=== PATIENT | male | born 1985 | race American Indian/Alaskan Native ===

== ENCOUNTER 2019-02-17 12:02 | Inpatient (IN) | payer MEDICARE ==
--- NOTE | 2019-02-17 12:13 | Event Note ---
ED Screening Note Date of service: 02/17/19 Time: 12:08 ED Screening Note: 33 y o male left [place] 2 days ago and has not taken insulin 2 days presents with weakness lethargic FBS: > 500 This initial assessment/diagnostic orders/clinical plan/treatment(s) is/are subject to change based on patients health status, clinical progression and re- assessment by fellow clinical providers in the ED. Further treatment and workup at subsequent clinical providers discretion. Patient/guardian urged not to elope from the ED as their condition may be serious if not clinically assessed and managed. Initial orders include: BG, cbc,cmp,uds,
[2019-02-17] MEDS ORDERED: NARCAN 2 MG/2 ML ONE (12:30)
[2019-02-17] MEDS ORDERED: NACL 0.9% 500 ML 500 ML IV ONE (12:32)
[2019-02-17] MEDS ORDERED: NACL 0.9% 1000 ML 1,000 ML ONE (12:33)
[2019-02-17] MEDS ORDERED: NARCAN 2 MG/2 ML IV ONE (12:36)
[2019-02-17] MEDS ORDERED: NACL 0.9% 1000 ML 1,000 ML IV ONE ×3 (12:36→14:42)
[2019-02-17] MEDS ORDERED: HumuLIN R IV ONE (12:43)
[2019-02-17] MEDS ORDERED: D50W (25GM) Syringe IV PRN ×2 (12:44→16:14)
[2019-02-17] MEDS ORDERED: CALCIUM CHLORIDE IVP ONE (12:44)
[2019-02-17] MEDS ORDERED: CALCIUM CHLORIDE IV ONE (12:46)
[2019-02-17] MEDS ORDERED: HumuLIN R ONE (12:47)
[2019-02-17] MEDS ORDERED: HumuLIN R 100 UNITS in NACL 0.9% 99 ML IV SCH ×2 (13:00→17:00)
--- NOTE | 2019-02-17 13:01 | Emergency Department Report ---
ED General Adult HPI - General Chief complaint: Nausea/Vomiting/Diarrhea Stated complaint: VOMIT/DEHYDRATED/DISORIENTED Time Seen by Provider: 02/17/19 12:08 Source: patient Mode of arrival: Wheelchair Limitations: No Limitations - History of Present Illness Initial comments: Since a 33 year old insulin-dependent diabetic man who was in residents in the [facility] treatment [facility]. He is brought to triage by [facility] staff. They told the triage nurse that he had been vomiting all night. He became confused and disoriented by this afternoon and he was brought to this emergency department for evaluation. The patient himself cannot give a history. He is quite lethargic but not obtunded. He will awaken with painful stimuli. She is found to have possible punctures on his forearms. When asked if he used drugs he stated he didn't think so. In any case he is not providing any useful historical information. - Related Data Home Medications Medication Instructions Recorded Confirmed Last Taken Insulin Aspart [NovoLOG Flexpen] 7 unit SQ TIDWM 03/29/14 09/20/14 Unknown Lisinopril 20 mg PO DAILY 04/01/14 09/20/14 08/30/14 Insulin Detemir [Levemir Flextouch] 30 units SQ QHS 09/20/14 09/20/14 Unknown Allergies Allergy/AdvReac Type Severity Reaction Status Date / Time No Known Allergies Allergy Unverified 03/29/14 14:49 ED Review of Systems ROS: Stated complaint: VOMIT/DEHYDRATED/DISORIENTED Other details as noted in HPI Comment: Unobtainable due to pts medical conditions ED Past Medical Hx - Past Medical History Hx Hypertension: Yes Hx Congestive Heart Failure: No Hx Diabetes: Yes Hx Psychiatric Treatment: Yes Hx Asthma: No Hx COPD: No Hx HIV: No - Surgical History Past Surgical History?: No - Social History Smoking Status: Never Smoker Substance Use Type: None - Medications Home Medications: Home Medications Medication Instructions Recorded Confirmed Last Taken Type Insulin Aspart [NovoLOG Flexpen] 7 unit SQ TIDWM 03/29/14 09/20/14 Unknown History Lisinopril 20 mg PO DAILY 04/01/14 09/20/14 08/30/14 History Insulin Detemir [Levemir Flextouch] 30 units SQ QHS 03/28/15 03/28/15 Unknown History ED Physical Exam - General Limitations: Altered Mental Status General appearance: lethargic - Head Head exam: Present: atraumatic - Eye Eye exam: Present: other (somewhat small but not frankly miotic, reactive and conjugate) - ENT ENT exam: Present: mucous membranes dry - Neck Neck exam: Present: normal inspection, full ROM. Absent: tenderness, men ingismus - Respiratory Respiratory exam: Present: normal lung sounds bilaterally. Absent: respiratory distress - Cardiovascular Cardiovascular Exam: Present: regular rate, tachycardia - GI/Abdominal GI/Abdominal exam: Present: soft, normal bowel sounds. Absent: distended, tenderness, guarding, rebound, rigid - Extremities Exam Extremities exam: Present: normal inspection. Absent: calf tenderness - Back Exam Back exam: Present: normal inspection - Neurological Exam Neurological exam: Present: altered, other (nonfocal neurological exam) - Psychiatric Psychiatric exam: Present: flat affect - Skin Skin exam: Present: warm, dry, intact, other (possible punctures forearms). Absent: rash ED Course Vital Signs 02/17/19 02/17/19 02/17/19 12:06 12:15 12:22 Temperature 98.0 F 97.6 F Pulse Rate 108 H 140 H 106 H Respiratory 18 22 15 Rate Blood Pressure 85/37 Blood Pressure 80/37 [Left] O2 Sat by Pulse 100 100 Oximetry 02/17/19 02/17/19 02/17/19 12:30 12:46 12:55 Temperature Pulse Rate 105 H 102 H 107 H Respiratory 16 18 16 Rate Blood Pressure 83/37 85/31 Blood Pressure 85/31 79/28 [Left] O2 Sat by Pulse 97 96 100 Oximetry 02/17/19 02/17/19 02/17/19 13:00 13:03 13:15 Temperature Pulse Rate 112 H 112 H 113 H Respiratory 13 16 15 Rate Blood Pressure 79/28 107/52 Blood Pressure 111/44 [Left] O2 Sat by Pulse 100 100 100 Oximetry 02/17/19 02/17/19 02/17/19 13:29 13:30 13:45 Temperature Pulse Rate 113 H 115 H 115 H Respiratory 18 12 15 Rate Blood Pressure 120/65 115/65 Blood Pressure 107/52 [Left] O2 Sat by Pulse 100 100 100 Oximetry 02/17/19 02/17/19 02/17/19 14:00 14:15 14:30 Temperature Pulse Rate 113 H 113 H 113 H Respiratory 12 13 10 L Rate Blood Pressure 114/62 113/70 122/69 Blood Pressure [Left] O2 Sat by Pulse 100 100 100 Oximetry 02/17/19 02/17/19 02/17/19 14:45 15:00 15:15 Temperature Pulse Rate 112 H 113 H 113 H Respiratory 11 L 12 11 L Rate Blood Pressure 124/76 123/72 110/68 Blood Pressure [Left] O2 Sat by Pulse 100 100 100 Oximetry 02/17/19 02/17/19 02/17/19 15:30 15:45 16:00 Temperature Pulse Rate 113 H 112 H 112 H Respiratory 11 L 11 L 11 L Rate Blood Pressure 115/72 112/77 122/73 Blood Pressure [Left] O2 Sat by Pulse 100 100 100 Oximetry - Reevaluation(s) Reevaluation #1: An arterial blood gas demonstrated severe metabolic acidosis with a pH of 7.07 and a PCO2 of approximately 26. There was good oxygenation. 02/17/19 13:06 Reevaluation #2: Discussed with renal (Dr. Moeller) and consulted. Discussed with Dr. Simpson and consulted. EKG is reviewed. Discussed with Dr. Parker and admit ICU. 02/17/19 14:22 ED Medical Decision Making - Lab Data Result diagrams: 02/17/19 12:37 02/17/19 14:28 Laboratory Results - last 24 hr 02/17/19 02/17/19 02/17/19 12:17 12:37 12:37 WBC 21.5 H RBC 3.99 Hgb 12.3 Hct 48.7 H MCV 122 H MCH 31 MCHC 25 L RDW 17.4 H Plt Count 323 Cook % (Auto) 7.0 Eos % (Auto) 0.1 Cook # 1.5 H Eos # 0.0 Baso # 0.2 H Seg Neutrophils % 84.8 H Seg Neutrophils # 18.8 H PT 14.6 INR 1.17 H APTT 29.5 VBG pH Chloride BUN Creatinine Estimated GFR BUN/Creatinine Ratio POC Glucose > 500 H Calcium Phosphorus Magnesium Total Bilirubin AST ALT Alkaline Phosphatase Lactate Dehydrogenase Total Creatine Kinase CK-MB (CK-2) CK-MB (CK-2) Rel Index Troponin T NT-Pro-B Natriuret Pep Total Protein Albumin Albumin/Globulin Ratio Lipase Urine Bilirubin Urine RBC (Auto) U Epithel Cells (Auto) Urine Opiates Screen Urine Methadone Screen Ur Barbiturates Screen Ur Phencyclidine Scrn Ur Amphetamines Screen U Benzodiazepines Scrn Urine Cocaine Screen U Marijuana (THC) Screen 02/17/19 02/17/19 02/17/19 12:37 12:37 12:37 WBC RBC Hgb Hct MCV MCH MCHC RDW Plt Count Cook % (Auto) Eos % (Auto) Cook # Eos # Baso # Seg Neutrophils % Seg Neutrophils # PT INR APTT VBG pH 7.137 L* Chloride BUN Creatinine Estimated GFR BUN/Creatinine Ratio POC Glucose Calcium Phosphorus Magnesium Total Bilirubin AST ALT Alkaline Phosphatase Lactate Dehydrogenase 236 H Total Creatine Kinase 118 CK-MB (CK-2) 3.9 CK-MB (CK-2) Rel Index 3.3 Troponin T < 0.010 NT-Pro-B Natriuret Pep 597.9 H Total Protein Albumin Albumin/Globulin Ratio Lipase Urine Bilirubin Urine RBC (Auto) U Epithel Cells (Auto) Urine Opiates Screen Urine Methadone Screen Ur Barbiturates Screen Ur Phencyclidine Scrn Ur Amphetamines Screen U Benzodiazepines Scrn Urine Cocaine Screen U Marijuana (THC) Screen 02/17/19 02/17/19 02/17/19 12:53 13:13 13:13 WBC RBC Hgb Hct MCV MCH MCHC RDW Plt Count Cook % (Auto) Eos % (Auto) Cook # Eos # Baso # Seg Neutrophils % Seg Neutrophils # PT INR APTT VBG pH Chloride 71.4 L BUN 84 H Creatinine 3.4 H Estimated GFR 25 BUN/Creatinine Ratio 25 POC Glucose Calcium 8.1 L Phosphorus 12.10 H Magnesium 3.70 H Total Bilirubin 0.50 AST 20 ALT 21 Alkaline Phosphatase 158 H Lactate Dehydrogenase Total Creatine Kinase CK-MB (CK-2) CK-MB (CK-2) Rel Index Troponin T NT-Pro-B Natriuret Pep Total Protein 6.2 L Albumin 3.8 L Albumin/Globulin Ratio 1.6 Lipase 16 Urine Bilirubin Neg Urine RBC (Auto) 2.0 U Epithel Cells (Auto) < 1.0 Urine Opiates Screen Presumptive negative Urine Methadone Screen Presumptive negative Ur Barbiturates Screen Presumptive negative Ur Phencyclidine Scrn Presumptive negative Ur Amphetamines Screen Presumptive negative U Benzodiazepines Scrn Presumptive negative Urine Cocaine Screen Presumptive negative U Marijuana (THC) Screen Presumptive negative Laboratory Results - last 24 hr 08/02/17/19 02/17/19 12:17 12:37 12:37 WBC 21.5 H RBC 3.99 Hgb 12.3 Hct 48.7 H MCV 122 H MCH 31 MCHC 25 L RDW 17.4 H Plt Count 323 Cook % (Auto) 7.0 Eos % (Auto) 0.1 Cook # 1.5 H Eos # 0.0 Baso # 0.2 H Seg Neutrophils % 84.8 H Seg Neutrophils # 18.8 H PT 14.6 INR 1.17 H APTT 29.5 VBG pH Chloride BUN Creatinine Estimated GFR BUN/Creatinine Ratio POC Glucose > 500 H Calcium Phosphorus Magnesium Total Bilirubin AST ALT Alkaline Phosphatase Lactate Dehydrogenase Total Creatine Kinase CK-MB (CK-2) CK-MB (CK-2) Rel Index Troponin T NT-Pro-B Natriuret Pep Total Protein Albumin Albumin/Globulin Ratio Lipase Urine Color Urine Turbidity Urine pH Ur Specific [place] Urine Protein Urine Glucose (UA) Urine Ketones Urine Blood Urine Nitrite Urine Bilirubin Urine Urobilinogen Ur Leukocyte Esterase Urine WBC (Auto) Urine RBC (Auto) U Epithel Cells (Auto) Urine Mucus Urine Opiates Screen Urine Methadone Screen Ur Barbiturates Screen Ur Phencyclidine Scrn Ur Amphetamines Screen U Benzodiazepines Scrn Urine Cocaine Screen U Marijuana (THC) Screen 02/17/19 02/17/19 02/17/19 12:37 12:37 12:37 WBC RBC Hgb Hct MCV MCH MCHC RDW Plt Count Cook % (Auto) Eos % (Auto) Cook # Eos # Baso # Seg Neutrophils % Seg Neutrophils # PT INR APTT VBG pH 7.137 L* Chloride BUN Creatinine Estimated GFR BUN/Creatinine Ratio POC Glucose Calcium Phosphorus Magnesium Total Bilirubin AST ALT Alkaline Phosphatase Lactate Dehydrogenase 236 H Total Creatine Kinase 118 CK-MB (CK-2) 3.9 CK-MB (CK-2) Rel Index 3.3 Troponin T < 0.010 NT-Pro-B Natriuret Pep 597.9 H Total Protein Albumin Albumin/Globulin Ratio Lipase Urine Color Urine Turbidity Urine pH Ur Specific [place] Urine Protein Urine Glucose (UA) Urine Ketones Urine Blood Urine Nitrite Urine Bilirubin Urine Urobilinogen Ur Leukocyte Esterase Urine WBC (Auto) Urine RBC (Auto) U Epithel Cells (Auto) Urine Mucus Urine Opiates Screen Urine Methadone Screen Ur Barbiturates Screen Ur Phencyclidine Scrn Ur Amphetamines Screen U Benzodiazepines Scrn Urine Cocaine Screen U Marijuana (THC) Screen 02/17/19 02/17/19 02/17/19 12:53 13:13 13:13 WBC RBC Hgb Hct MCV MCH MCHC RDW Plt Count Cook % (Auto) Eos % (Auto) Cook # Eos # Baso # Seg Neutrophils % Seg Neutrophils # PT INR APTT VBG pH Chloride 71.4 L BUN 84 H Creatinine 3.4 H Estimated GFR 25 BUN/Creatinine Ratio 25 POC Glucose Calcium 8.1 L Phosphorus 12.10 H Magnesium 3.70 H Total Bilirubin 0.50 AST 20 ALT 21 Alkaline Phosphatase 158 H Lactate Dehydrogenase Total Creatine Kinase CK-MB (CK-2) CK-MB (CK-2) Rel Index Troponin T NT-Pro-B Natriuret Pep Total Protein 6.2 L Albumin 3.8 L Albumin/Globulin Ratio 1.6 Lipase 16 Urine Color Yellow Urine Turbidity Slightly-cloudy Urine pH 5.0 Ur Specific [place] 1.021 Urine Protein <15 mg/dl Urine Glucose (UA) >=500 Urine Ketones Tr Urine Blood Sm Urine Nitrite Neg Urine Bilirubin Neg Urine Urobilinogen < 2.0 Ur Leukocyte Esterase Neg Urine WBC (Auto) 4.0 Urine RBC (Auto) 2.0 U Epithel Cells (Auto) < 1.0 Urine Mucus Few Urine Opiates Screen Presumptive negative Urine Methadone Screen Presumptive negative Ur Barbiturates Screen Presumptive negative Ur Phencyclidine Scrn Presumptive negative Ur Amphetamines Screen Presumptive negative U Benzodiazepines Scrn Presumptive negative Urine Cocaine Screen Presumptive negative U Marijuana (THC) Screen Presumptive negative Sodium 118, potassium 9.5, CO2 5, lactic acid 3.5 Laboratory Results - last 24 hr 02/17/19 02/17/19 02/17/19 12:17 12:37 12:37 WBC 21.5 H RBC 3.99 Hgb 12.3 Hct 48.7 H MCV 122 H MCH 31 MCHC 25 L RDW 17.4 H Plt Count 323 Cook % (Auto) 7.0 Eos % (Auto) 0.1 Cook # 1.5 H Eos # 0.0 Baso # 0.2 H Add Manual Diff Complete Total Counted 100 Seg Neutrophils % 84.8 H Seg Neuts % (Manual) 84.0 H Band Neutrophils % 0 Lymphocytes % (Manual) 7.0 L Reactive Lymphs % (Man) 0 Monocytes % (Manual) 5.0 Eosinophils % (Manual) 0 Basophils % (Manual) 1.0 Metamyelocytes % 3.0 Myelocytes % 0 Promyelocytes % 0 Blast Cells % 0 Nucleated RBC % Not Reportable Seg Neutrophils # 18.8 H Seg Neutrophils # Man 18.1 H Band Neutrophils # 0.0 Lymphocytes # (Manual) 1.5 Abs React Lymphs (Man) 0.0 Monocytes # (Manual) 1.1 H Eosinophils # (Manual) 0.0 Basophils # (Manual) 0.2 H Metamyelocytes # 0.6 Myelocytes # 0.0 Promyelocytes # 0.0 Blast Cells # 0.0 WBC Morphology Not Reportable Hypersegmented Neuts Not Reportable Hyposegmented Neuts Not Reportable Hypogranular Neuts Not Reportable Smudge Cells Not Reportable Toxic Granulation Not Reportable Toxic Vacuolation Not Reportable Dohle Bodies Not Reportable Pelger-Huet Anomaly Not Reportable Kendall Rods Not Reportable Platelet Estimate Consistent w auto Clumped Platelets Not Reportable Plt Clumps, EDTA Not Reportable Large Platelets Not Reportable Giant Platelets Not Reportable Platelet Satelliting Not Reportable Plt Morphology Comment Not Reportable RBC Morphology Normal Dimorphic RBCs Not Reportable Polychromasia Few Hypochromasia Not Reportable Poikilocytosis Not Reportable Anisocytosis Not Reportable Microcytosis Not Reportable Macrocytosis Not Reportable Spherocytes Not Reportable Pappenheimer Bodies Not Reportable Sickle Cells Not Reportable Target Cells Not Reportable Tear Drop Cells Not Reportable Ovalocytes Not Reportable Helmet Cells Not Reportable [place] Bodies Not Reportable Achille Rings Not Reportable Elbert Cells Not Reportable Bite Cells Not Reportable Crenated Cell Not Reportable Elliptocytes Not Reportable Acanthocytes (Spur) Not Reportable Rouleaux Not Reportable Hemoglobin C Crystals Not Reportable Schistocytes Not Reportable Malaria parasites Not Reportable Gil Bodies Not Reportable Hem Pathologist Commnt No PT 14.6 INR 1.17 H APTT 29.5 VBG pH Sodium Potassium Chloride Carbon Dioxide Anion Gap BUN Creatinine Estimated GFR BUN/Creatinine Ratio Glucose POC Glucose > 500 H Lactic Acid Calcium Phosphorus Magnesium Total Bilirubin Direct Bilirubin Indirect Bilirubin AST ALT Alkaline Phosphatase Lactate Dehydrogenase Total Creatine Kinase CK-MB (CK-2) CK-MB (CK-2) Rel Index Troponin T NT-Pro-B Natriuret Pep Total Protein Albumin Albumin/Globulin Ratio Lipase Urine Color Urine Turbidity Urine pH Ur Specific [place] Urine Protein Urine Glucose (UA) Urine Ketones Urine Blood Urine Nitrite Urine Bilirubin Urine Urobilinogen Ur Leukocyte Esterase Urine WBC (Auto) Urine RBC (Auto) U Epithel Cells (Auto) Urine Mucus Urine Opiates Screen Urine Methadone Screen Ur Barbiturates Screen Ur Phencyclidine Scrn Ur Amphetamines Screen U Benzodiazepines Scrn Urine Cocaine Screen U Marijuana (THC) Screen Drugs of Abuse Note 02/17/19 02/17/19 02/17/19 12:37 12:37 12:37 WBC RBC Hgb Hct MCV MCH MCHC RDW Plt Count Cook % (Auto) Eos % (Auto) Cook # Eos # Baso # Add Manual Diff Total Counted Seg Neutrophils % Seg Neuts % (Manual) Band Neutrophils % Lymphocytes % (Manual) Reactive Lymphs % (Man) Monocytes % (Manual) Eosinophils % (Manual) Basophils % (Manual) Metamyelocytes % Myelocytes % Promyelocytes % Blast Cells % Nucleated RBC % Seg Neutrophils # Seg Neutrophils # Man Band Neutrophils # Lymphocytes # (Manual) Abs React Lymphs (Man) Monocytes # (Manual) Eosinophils # (Manual) Basophils # (Manual) Metamyelocytes # Myelocytes # Promyelocytes # Blast Cells # WBC Morphology Hypersegmented Neuts Hyposegmented Neuts Hypogranular Neuts Smudge Cells Toxic Granulation Toxic Vacuolation Dohle Bodies Pelger-Huet Anomaly Kendall Rods Platelet Estimate Clumped Platelets Plt Clumps, EDTA Large Platelets Giant Platelets Platelet Satelliting Plt Morphology Comment RBC Morphology Dimorphic RBCs Polychromasia Hypochromasia Poikilocytosis Anisocytosis Microcytosis Macrocytosis Spherocytes Pappenheimer Bodies Sickle Cells Target Cells Tear Drop Cells Ovalocytes Helmet Cells [place] Bodies Achille Rings Elbert Cells Bite Cells Crenated Cell Elliptocytes Acanthocytes (Spur) Rouleaux Hemoglobin C Crystals Schistocytes Malaria parasites Gil Bodies Hem Pathologist Commnt PT INR APTT VBG pH 7.137 L* Sodium Potassium Chloride Carbon Dioxide Anion Gap BUN Creatinine Estimated GFR BUN/Creatinine Ratio Glucose POC Glucose Lactic Acid 3.50 H* Calcium Phosphorus Magnesium Total Bilirubin Direct Bilirubin Indirect Bilirubin AST ALT Alkaline Phosphatase Lactate Dehydrogenase 236 H Total Creatine Kinase CK-MB (CK-2) CK-MB (CK-2) Rel Index Troponin T NT-Pro-B Natriuret Pep Total Protein Albumin Albumin/Globulin Ratio Lipase Urine Color Urine Turbidity Urine pH Ur Specific [place] Urine Protein Urine Glucose (UA) Urine Ketones Urine Blood Urine Nitrite Urine Bilirubin Urine Urobilinogen Ur Leukocyte Esterase Urine WBC (Auto) Urine RBC (Auto) U Epithel Cells (Auto) Urine Mucus Urine Opiates Screen Urine Methadone Screen Ur Barbiturates Screen Ur Phencyclidine Scrn Ur Amphetamines Screen U Benzodiazepines Scrn Urine Cocaine Screen U Marijuana (THC) Screen Drugs of Abuse Note 02/17/19 02/17/19 02/17/19 12:37 12:53 13:13 WBC RBC Hgb Hct MCV MCH MCHC RDW Plt Count Cook % (Auto) Eos % (Auto) Cook # Eos # Baso # Add Manual Diff Total Counted Seg Neutrophils % Seg Neuts % (Manual) Band Neutrophils % Lymphocytes % (Manual) Reactive Lymphs % (Man) Monocytes % (Manual) Eosinophils % (Manual) Basophils % (Manual) Metamyelocytes % Myelocytes % Promyelocytes % Blast Cells % Nucleated RBC % Seg Neutrophils # Seg Neutrophils # Man Band Neutrophils # Lymphocytes # (Manual) Abs React Lymphs (Man) Monocytes # (Manual) Eosinophils # (Manual) Basophils # (Manual) Metamyelocytes # Myelocytes # Promyelocytes # Blast Cells # WBC Morphology Hypersegmented Neuts Hyposegmented Neuts Hypogranular Neuts Smudge Cells Toxic Granulation Toxic Vacuolation Dohle Bodies Pelger-Huet Anomaly Kendall Rods Platelet Estimate Clumped Platelets Plt Clumps, EDTA Large Platelets Giant Platelets Platelet Satelliting Plt Morphology Comment RBC Morphology Dimorphic RBCs Polychromasia Hypochromasia Poikilocytosis Anisocytosis Microcytosis Macrocytosis Spherocytes Pappenheimer Bodies Sickle Cells Target Cells Tear Drop Cells Ovalocytes Helmet Cells [place] Bodies Achille Rings Elbert Cells Bite Cells Crenated Cell Elliptocytes Acanthocytes (Spur) Rouleaux Hemoglobin C Crystals Schistocytes Malaria parasites Gil Bodies Hem Pathologist Commnt PT INR APTT VBG pH Sodium 118 L* Potassium 9.5 H* Chloride 71.4 L Carbon Dioxide 5 L* Anion Gap 51 BUN 84 H Creatinine 3.4 H Estimated GFR 25 BUN/Creatinine Ratio 25 Glucose 2068 H* POC Glucose Lactic Acid Calcium 8.1 L Phosphorus 12.10 H Magnesium 3.70 H Total Bilirubin 0.50 Direct Bilirubin < 0.2 Indirect Bilirubin 0.3 AST 20 ALT 21 Alkaline Phosphatase 158 H Lactate Dehydrogenase Total Creatine Kinase 118 CK-MB (CK-2) 3.9 CK-MB (CK-2) Rel Index 3.3 Troponin T < 0.010 NT-Pro-B Natriuret Pep 597.9 H Total Protein 6.2 L Albumin 3.8 L Albumin/Globulin Ratio 1.6 Lipase 16 Urine Color Yellow Urine Turbidity Slightly-cloudy Urine pH 5.0 Ur Specific [place] 1.021 Urine Protein <15 mg/dl Urine Glucose (UA) >=500 Urine Ketones Tr Urine Blood Sm Urine Nitrite Neg Urine Bilirubin Neg Urine Urobilinogen < 2.0 Ur Leukocyte Esterase Neg Urine WBC (Auto) 4.0 Urine RBC (Auto) 2.0 U Epithel Cells (Auto) < 1.0 Urine Mucus Few Urine Opiates Screen Urine Methadone Screen Ur Barbiturates Screen Ur Phencyclidine Scrn Ur Amphetamines Screen U Benzodiazepines Scrn Urine Cocaine Screen U Marijuana (THC) Screen Drugs of Abuse Note 02/17/19 13:13 WBC RBC Hgb Hct MCV MCH MCHC RDW Plt Count Cook % (Auto) Eos % (Auto) Cook # Eos # Baso # Add Manual Diff Total Counted Seg Neutrophils % Seg Neuts % (Manual) Band Neutrophils % Lymphocytes % (Manual) Reactive Lymphs % (Man) Monocytes % (Manual) Eosinophils % (Manual) Basophils % (Manual) Metamyelocytes % Myelocytes % Promyelocytes % Blast Cells % Nucleated RBC % Seg Neutrophils # Seg Neutrophils # Man Band Neutrophils # Lymphocytes # (Manual) Abs React Lymphs (Man) Monocytes # (Manual) Eosinophils # (Manual) Basophils # (Manual) Metamyelocytes # Myelocytes # Promyelocytes # Blast Cells # WBC Morphology Hypersegmented Neuts Hyposegmented Neuts Hypogranular Neuts Smudge Cells Toxic Granulation Toxic Vacuolation Dohle Bodies Pelger-Huet Anomaly Kendall Rods Platelet Estimate Clumped Platelets Plt Clumps, EDTA Large Platelets Giant Platelets Platelet Satelliting Plt Morphology Comment RBC Morphology Dimorphic RBCs Polychromasia Hypochromasia Poikilocytosis Anisocytosis Microcytosis Macrocytosis Spherocytes Pappenheimer Bodies Sickle Cells Target Cells Tear Drop Cells Ovalocytes Helmet Cells [place] Bodies Achille Rings Anatoliy Cells Bite Cells Crenated Cell Elliptocytes Acanthocytes (Spur) Rouleaux Hemoglobin C Crystals Schistocytes Malaria parasites Gil Bodies Hem Pathologist Commnt PT INR APTT VBG pH Sodium Potassium Chloride Carbon Dioxide Anion Gap BUN Creatinine Estimated GFR BUN/Creatinine Ratio Glucose POC Glucose Lactic Acid Calcium Phosphorus Magnesium Total Bilirubin Direct Bilirubin Indirect Bilirubin AST ALT Alkaline Phosphatase Lactate Dehydrogenase Total Creatine Kinase CK-MB (CK-2) CK-MB (CK-2) Rel Index Troponin T NT-Pro-B Natriuret Pep Total Protein Albumin Albumin/Globulin Ratio Lipase Urine Color Urine Turbidity Urine pH Ur Specific [place] Urine Protein Urine Glucose (UA) Urine Ketones Urine Blood Urine Nitrite Urine Bilirubin Urine Urobilinogen Ur Leukocyte Esterase Urine WBC (Auto) Urine RBC (Auto) U Epithel Cells (Auto) Urine Mucus Urine Opiates Screen Presumptive negative Urine Methadone Screen Presumptive negative Ur Barbiturates Screen Presumptive negative Ur Phencyclidine Scrn Presumptive negative Ur Amphetamines Screen Presumptive negative U Benzodiazepines Scrn Presumptive negative Urine Cocaine Screen Presumptive negative U Marijuana (THC) Screen Presumptive negative Drugs of Abuse Note Disclamer Laboratory Results - last 24 hr 02/17/19 02/17/19 02/17/19 12:17 12:37 12:37 WBC 21.5 H RBC 3.99 Hgb 12.3 Hct 48.7 H MCV 122 H MCH 31 MCHC 25 L RDW 17.4 H Plt Count 323 Cook % (Auto) 7.0 Eos % (Auto) 0.1 Cook # 1.5 H Eos # 0.0 Baso # 0.2 H Add Manual Diff Complete Total Counted 100 Seg Neutrophils % 84.8 H Seg Neuts % (Manual) 84.0 H Band Neutrophils % 0 Lymphocytes % (Manual) 7.0 L Reactive Lymphs % (Man) 0 Monocytes % (Manual) 5.0 Eosinophils % (Manual) 0 Basophils % (Manual) 1.0 Metamyelocytes % 3.0 Myelocytes % 0 Promyelocytes % 0 Blast Cells % 0 Nucleated RBC % Not Reportable Seg Neutrophils # 18.8 H Seg Neutrophils # Man 18.1 H Band Neutrophils # 0.0 Lymphocytes # (Manual) 1.5 Abs React Lymphs (Man) 0.0 Monocytes # (Manual) 1.1 H Eosinophils # (Manual) 0.0 Basophils # (Manual) 0.2 H Metamyelocytes # 0.6 Myelocytes # 0.0 Promyelocytes # 0.0 Blast Cells # 0.0 WBC Morphology Not Reportable Hypersegmented Neuts Not Reportable Hyposegmented Neuts Not Reportable Hypogranular Neuts Not Reportable Smudge Cells Not Reportable Toxic Granulation Not Reportable Toxic Vacuolation Not Reportable Dohle Bodies Not Reportable Pelger-Huet Anomaly Not Reportable Kendall Rods Not Reportable Platelet Estimate Consistent w auto Clumped Platelets Not Reportable Plt Clumps, EDTA Not Reportable Large Platelets Not Reportable Giant Platelets Not Reportable Platelet Satelliting Not Reportable Plt Morphology Comment Not Reportable RBC Morphology Normal Dimorphic RBCs Not Reportable Polychromasia Few Hypochromasia Not Reportable Poikilocytosis Not Reportable Anisocytosis Not Reportable Microcytosis Not Reportable Macrocytosis Not Reportable Spherocytes Not Reportable Pappenheimer Bodies Not Reportable Sickle Cells Not Reportable Target Cells Not Reportable Tear Drop Cells Not Reportable Ovalocytes Not Reportable Helmet Cells Not Reportable [place] Bodies Not Reportable Achille Rings Not Reportable [place] Cells Not Reportable Bite Cells Not Reportable Crenated Cell Not Reportable Elliptocytes Not Reportable Acanthocytes (Spur) Not Reportable Rouleaux Not Reportable Hemoglobin C Crystals Not Reportable Schistocytes Not Reportable Malaria parasites Not Reportable Gil Bodies Not Reportable Hem Pathologist Commnt No PT 14.6 INR 1.17 H APTT 29.5 POC ABG pH POC ABG pO2 POC ABG HCO3 POC ABG Total CO2 POC ABG O2 Sat POC ABG Base Excess VBG pH FiO2 Sodium Potassium Chloride Carbon Dioxide Anion Gap BUN Creatinine Estimated GFR BUN/Creatinine Ratio Glucose POC Glucose > 500 H Lactic Acid Calcium Phosphorus Magnesium Total Bilirubin Direct Bilirubin Indirect Bilirubin AST ALT Alkaline Phosphatase Lactate Dehydrogenase Total Creatine Kinase CK-MB (CK-2) CK-MB (CK-2) Rel Index Troponin T NT-Pro-B Natriuret Pep Total Protein Albumin Albumin/Globulin Ratio Lipase Urine Color Urine Turbidity Urine pH Ur Specific [place] Urine Protein Urine Glucose (UA) Urine Ketones Urine Blood Urine Nitrite Urine Bilirubin Urine Urobilinogen Ur Leukocyte Esterase Urine WBC (Auto) Urine RBC (Auto) U Epithel Cells (Auto) Urine Mucus Urine Opiates Screen Urine Methadone Screen Ur Barbiturates Screen Ur Phencyclidine Scrn Ur Amphetamines Screen U Benzodiazepines Scrn Urine Cocaine Screen U Marijuana (THC) Screen Drugs of Abuse Note 02/17/19 02/17/19 02/17/19 12:37 12:37 12:37 WBC RBC Hgb Hct MCV MCH MCHC RDW Plt Count Cook % (Auto) Eos % (Auto) Cook # Eos # Baso # Add Manual Diff Total Counted Seg Neutrophils % Seg Neuts % (Manual) Band Neutrophils % Lymphocytes % (Manual) Reactive Lymphs % (Man) Monocytes % (Manual) Eosinophils % (Manual) Basophils % (Manual) Metamyelocytes % Myelocytes % Promyelocytes % Blast Cells % Nucleated RBC % Seg Neutrophils # Seg Neutrophils # Man Band Neutrophils # Lymphocytes # (Manual) Abs React Lymphs (Man) Monocytes # (Manual) Eosinophils # (Manual) Basophils # (Manual) Metamyelocytes # Myelocytes # Promyelocytes # Blast Cells # WBC Morphology Hypersegmented Neuts Hyposegmented Neuts Hypogranular Neuts Smudge Cells Toxic Granulation Toxic Vacuolation Dohle Bodies Pelger-Huet Anomaly [place] Rods Platelet Estimate Clumped Platelets Plt Clumps, EDTA Large Platelets Giant Platelets Platelet Satelliting Plt Morphology Comment RBC Morphology Dimorphic RBCs Polychromasia Hypochromasia Poikilocytosis Anisocytosis Microcytosis Macrocytosis Spherocytes Pappenheimer Bodies Sickle Cells Target Cells Tear Drop Cells Ovalocytes Helmet Cells [place] Bodies Achille Rings Anatoliy Cells Bite Cells Crenated Cell Elliptocytes Acanthocytes (Spur) Rouleaux Hemoglobin C Crystals Schistocytes Malaria parasites Gil Bodies Hem Pathologist Commnt PT INR APTT POC ABG pH POC ABG pO2 POC ABG HCO3 POC ABG Total CO2 POC ABG O2 Sat POC ABG Base Excess VBG pH 7.137 L* FiO2 Sodium Potassium Chloride Carbon Dioxide Anion Gap BUN Creatinine Estimated GFR BUN/Creatinine Ratio Glucose POC Glucose Lactic Acid 3.50 H* Calcium Phosphorus Magnesium Total Bilirubin Direct Bilirubin Indirect Bilirubin AST ALT Alkaline Phosphatase Lactate Dehydrogenase 236 H Total Creatine Kinase CK-MB (CK-2) CK-MB (CK-2) Rel Index Troponin T NT-Pro-B Natriuret Pep Total Protein Albumin Albumin/Globulin Ratio Lipase Urine Color Urine Turbidity Urine pH Ur Specific [place] Urine Protein Urine Glucose (UA) Urine Ketones Urine Blood Urine Nitrite Urine Bilirubin Urine Urobilinogen Ur Leukocyte Esterase Urine WBC (Auto) Urine RBC (Auto) U Epithel Cells (Auto) Urine Mucus Urine Opiates Screen Urine Methadone Screen Ur Barbiturates Screen Ur Phencyclidine Scrn Ur Amphetamines Screen U Benzodiazepines Scrn Urine Cocaine Screen U Marijuana (THC) Screen Drugs of Abuse Note 02/17/19 02/17/19 02/17/19 12:37 12:53 13:06 WBC RBC Hgb Hct MCV MCH MCHC RDW Plt Count Cook % (Auto) Eos % (Auto) Cook # Eos # Baso # Add Manual Diff Total Counted Seg Neutrophils % Seg Neuts % (Manual) Band Neutrophils % Lymphocytes % (Manual) Reactive Lymphs % (Man) Monocytes % (Manual) Eosinophils % (Manual) Basophils % (Manual) Metamyelocytes % Myelocytes % Promyelocytes % Blast Cells % Nucleated RBC % Seg Neutrophils # Seg Neutrophils # Man Band Neutrophils # Lymphocytes # (Manual) Abs React Lymphs (Man) Monocytes # (Manual) Eosinophils # (Manual) Basophils # (Manual) Metamyelocytes # Myelocytes # Promyelocytes # Blast Cells # WBC Morphology Hypersegmented Neuts Hyposegmented Neuts Hypogranular Neuts Smudge Cells Toxic Granulation Toxic Vacuolation Dohle Bodies Pelger-Huet Anomaly Kend[place] Rods Platelet Estimate Clumped Platelets Plt Clumps, EDTA Large Platelets Giant Platelets Platelet Satelliting Plt Morphology Comment RBC Morphology Dimorphic RBCs Polychromasia Hypochromasia Poikilocytosis Anisocytosis Microcytosis Macrocytosis Spherocytes Pappenheimer Bodies Sickle Cells Target Cells Tear Drop Cells Ovalocytes Helmet Cells [place] Bodies Achille Rings [place]bert Cells Bite Cells Crenated Cell Elliptocytes Acanthocytes (Spur) Rouleaux Hemoglobin C Crystals Schistocytes Malaria parasites Gil Bodies Hem Pathologist Commnt PT INR APTT POC ABG pH 7.073 L POC ABG pO2 123 H POC ABG HCO3 7.0 POC ABG Total CO2 8 POC ABG O2 Sat 97 POC ABG Base Excess -23 VBG pH FiO2 21 Sodium 118 L* Potassium 9.5 H* Chloride 71.4 L Carbon Dioxide 5 L* Anion Gap 51 BUN 84 H Creatinine 3.4 H Estimated GFR 25 BUN/Creatinine Ratio 25 Glucose 2068 H* POC Glucose Lactic Acid Calcium 8.1 L Phosphorus 12.10 H Magnesium 3.70 H Total Bilirubin 0.50 Direct Bilirubin < 0.2 Indirect Bilirubin 0.3 AST 20 ALT 21 Alkaline Phosphatase 158 H Lactate Dehydrogenase Total Creatine Kinase 118 CK-MB (CK-2) 3.9 CK-MB (CK-2) Rel Index 3.3 Troponin T < 0.010 NT-Pro-B Natriuret Pep 597.9 H Total Protein 6.2 L Albumin 3.8 L Albumin/Globulin Ratio 1.6 Lipase 16 Urine Color Urine Turbidity Urine pH Ur Specific [place] Urine Protein Urine Glucose (UA) Urine Ketones Urine Blood Urine Nitrite Urine Bilirubin Urine Urobilinogen Ur Leukocyte Esterase Urine WBC (Auto) Urine RBC (Auto) U Epithel Cells (Auto) Urine Mucus Urine Opiates Screen Urine Methadone Screen Ur Barbiturates Screen Ur Phencyclidine Scrn Ur Amphetamines Screen U Benzodiazepines Scrn Urine Cocaine Screen U Marijuana (THC) Screen Drugs of Abuse Note 02/17/19 02/17/19 02/17/19 13:13 13:13 13:59 WBC RBC Hgb Hct MCV MCH MCHC RDW Plt Count Cook % (Auto) Eos % (Auto) Cook # Eos # Baso # Add Manual Diff Total Counted Seg Neutrophils % Seg Neuts % (Manual) Band Neutrophils % Lymphocytes % (Manual) Reactive Lymphs % (Man) Monocytes % (Manual) Eosinophils % (Manual) Basophils % (Manual) Metamyelocytes % Myelocytes % Promyelocytes % Blast Cells % Nucleated RBC % Seg Neutrophils # Seg Neutrophils # Man Band Neutrophils # Lymphocytes # (Manual) Abs React Lymphs (Man) Monocytes # (Manual) Eosinophils # (Manual) Basophils # (Manual) Metamyelocytes # Myelocytes # Promyelocytes # Blast Cells # WBC Morphology Hypersegmented Neuts Hyposegmented Neuts Hypogranular Neuts Smudge Cells Toxic Granulation Toxic Vacuolation Dohle Bodies Pelger-Huet Anomaly Kend[place] Rods Platelet Estimate Clumped Platelets Plt Clumps, EDTA Large Platelets Giant Platelets Platelet Satelliting Plt Morphology Comment RBC Morphology Dimorphic RBCs Polychromasia Hypochromasia Poikilocytosis Anisocytosis Microcytosis Macrocytosis Spherocytes Pappenheimer Bodies Sickle Cells Target Cells Tear Drop Cells Ovalocytes Helmet Cells [place] Bodies Achille Rings Anatoliy Cells Bite Cells Crenated Cell Elliptocytes Acanthocytes (Spur) Rouleaux Hemoglobin C Crystals Schistocytes Malaria parasites Gil Bodies Hem Pathologist Commnt PT INR APTT POC ABG pH POC ABG pO2 POC ABG HCO3 POC ABG Total CO2 POC ABG O2 Sat POC ABG Base Excess VBG pH FiO2 Sodium Potassium Chloride Carbon Dioxide Anion Gap BUN Creatinine Estimated GFR BUN/Creatinine Ratio Glucose POC Glucose Lactic Acid 2.60 H* Calcium Phosphorus Magnesium Total Bilirubin Direct Bilirubin Indirect Bilirubin AST ALT Alkaline Phosphatase Lactate Dehydrogenase Total Creatine Kinase CK-MB (CK-2) CK-MB (CK-2) Rel Index Troponin T NT-Pro-B Natriuret Pep Total Protein Albumin Albumin/Globulin Ratio Lipase Urine Color Yellow Urine Turbidity Slightly-cloudy Urine pH 5.0 Ur Specific [place] 1.021 Urine Protein <15 mg/dl Urine Glucose (UA) >=500 Urine Ketones Tr Urine Blood Sm Urine Nitrite Neg Urine Bilirubin Neg Urine Urobilinogen < 2.0 Ur Leukocyte Esterase Neg Urine WBC (Auto) 4.0 Urine RBC (Auto) 2.0 U Epithel Cells (Auto) < 1.0 Urine Mucus Few Urine Opiates Screen Presumptive negative Urine Methadone Screen Presumptive negative Ur Barbiturates Screen Presumptive negative Ur Phencyclidine Scrn Presumptive negative Ur Amphetamines Screen Presumptive negative U Benzodiazepines Scrn Presumptive negative Urine Cocaine Screen Presumptive negative U Marijuana (THC) Screen Presumptive negative Drugs of Abuse Note Disclamer 02/17/19 14:28 WBC RBC Hgb Hct MCV MCH MCHC RDW Plt Count Cook % (Auto) Eos % (Auto) Cook # Eos # Baso # Add Manual Diff Total Counted Seg Neutrophils % Seg Neuts % (Manual) Band Neutrophils % Lymphocytes % (Manual) Reactive Lymphs % (Man) Monocytes % (Manual) Eosinophils % (Manual) Basophils % (Manual) Metamyelocytes % Myelocytes % Promyelocytes % Blast Cells % Nucleated RBC % Seg Neutrophils # Seg Neutrophils # Man Band Neutrophils # Lymphocytes # (Manual) Abs React Lymphs (Man) Monocytes # (Manual) Eosinophils # (Manual) Basophils # (Manual) Metamyelocytes # Myelocytes # Promyelocytes # Blast Cells # WBC Morphology Hypersegmented Neuts Hyposegmented Neuts Hypogranular Neuts Smudge Cells Toxic Granulation Toxic Vacuolation Dohle Bodies Pelger-Huet Anomaly Kend[place] Rods Platelet Estimate Clumped Platelets Plt Clumps, EDTA Large Platelets Giant Platelets Platelet Satelliting Plt Morphology Comment RBC Morphology Dimorphic RBCs Polychromasia Hypochromasia Poikilocytosis Anisocytosis Microcytosis Macrocytosis Spherocytes Pappenheimer Bodies Sickle Cells Target Cells Tear Drop Cells Ovalocytes Helmet Cells [place] Bodies Achille Rings [place] Cells Bite Cells Crenated Cell Elliptocytes Acanthocytes (Spur) Rouleaux Hemoglobin C Crystals Schistocytes Malaria parasites Gil Bodies Hem Pathologist Commnt PT INR APTT POC ABG pH POC ABG pO2 POC ABG HCO3 POC ABG Total CO2 POC ABG O2 Sat POC ABG Base Excess VBG pH FiO2 Sodium 129 L D Potassium 6.7 H* D Chloride 83.1 L Carbon Dioxide 10 L Anion Gap 43 BUN 81 H Creatinine 3.1 H Estimated GFR 28 BUN/Creatinine Ratio 26 Glucose 1726 H* POC Glucose Lactic Acid Calcium 8.8 Phosphorus Magnesium Total Bilirubin Direct Bilirubin Indirect Bilirubin AST ALT Alkaline Phosphatase Lactate Dehydrogenase Total Creatine Kinase CK-MB (CK-2) CK-MB (CK-2) Rel Index Troponin T NT-Pro-B Natriuret Pep Total Protein Albumin Albumin/Globulin Ratio Lipase Urine Color Urine Turbidity Urine pH Ur Specific [place] Urine Protein Urine Glucose (UA) Urine Ketones Urine Blood Urine Nitrite Urine Bilirubin Urine Urobilinogen Ur Leukocyte Esterase Urine WBC (Auto) Urine RBC (Auto) U Epithel Cells (Auto) Urine Mucus Urine Opiates Screen Urine Methadone Screen Ur Barbiturates Screen Ur Phencyclidine Scrn Ur Amphetamines Screen U Benzodiazepines Scrn Urine Cocaine Screen U Marijuana (THC) Screen Drugs of Abuse Note - EKG Data -: EKG Interpreted by Me - EKG Data Interpretation: other (twelve-lead EKG did show ST elevation in lead V2 however it was highly consistent with hyperkalemia otherwise with a widened QRS and classic all peaked T waves. I do not think this is an acute STEMI. However, we will repeat it after empiric treatment for hyperkalemia.) - Radiology Data Radiology results: report reviewed (chest x-ray no acute process) Critical Care Time: Yes Critical care time in (mins) excluding proc time.: 120 Critical care attestation.: If time is entered above; I have spent that time in minutes in the direct care of this critically ill patient, excluding procedure time. ED Disposition Clinical Impression: Hyperkalemia DKA (diabetic ketoacidosis) Qualifiers: Diabetes mellitus type: type 1 Diabetes mellitus complication detail: with coma Qualified Code(s): E10.11 - Type 1 diabetes mellitus with ketoacidosis with coma Schizophrenia Qualifiers: Schizophrenia type: unspecified Qualified Code(s): F20.9 - Schizophrenia, unspecified Disposition: [id number] OP ADMIT IP TO THIS HOSP Is pt being admited?: Yes Does the pt Need Aspirin: Yes Condition: Stable Instructions: Diabetes Mellitus Type 2 in Adults (ED) Referrals: ALLISON ALFORD MD [Primary Care Provider] - 3-5 Days Time of Disposition: 16:29
[2019-02-17 13:04] LABS: Mean Corpuscular HGB Conc 25 % (32-34); Platelet Count 323 K/mm3 (140-440); Red Blood Count 3.99 M/mm3 (3.65-5.03); Red Cell Distribution Width 17.4 % (13.2-15.2)
[2019-02-17 13:06] LABS: Hematocrit 48.7 % (35.5-45.6); Hemoglobin 12.3 gm/dl (11.8-15.2); Mean Corpuscular Volume 122 fl (84-94)
[2019-02-17 13:10] LABS: Basophils # (Auto) 0.2 K/mm3 (0.0-0.1); Eosinophils % (Auto) 0.1 % (0.0-4.3); Monocytes # (Auto) 1.5 K/mm3 (0.0-0.8)
[2019-02-17 13:16] LABS: INR 1.17 (0.87-1.13); Partial Thromboplastin Time 29.5 Sec. (24.2-36.6)
[2019-02-17 13:26] LABS: Alanine Aminotransferase 21 units/L (7-56); Albumin 3.8 g/dL (3.9-5); BUN/Creatinine Ratio 25; Blood Urea Nitrogen 84 mg/dL (9-20); Calcium 8.1 mg/dL (8.4-10.2); Hemolysis Index 29
[2019-02-17 13:27] LABS: Creatine Kinase MB 3.9 ng/mL (0.0-4.0)
[2019-02-17 13:32] LABS: Bilirubin,Urine NEG (Negative); Blood,Urine SM (Negative); Color,Urine Yellow (Yellow); Mucus,Urine FEW /HPF; Protein,Urine <15 mg/dL mg/dL (Negative); Urobilinogen,Urine < 2.0 mg/dL (<2.0)
[2019-02-17 13:38] LABS: Amphetamine Screen,Urine PRESUMPTIVE NEGATIVE; Benzodiazepines Screen,Urine PRESUMPTIVE NEGATIVE; Cannabinoid Screen,Urine PRESUMPTIVE NEGATIVE; Cocaine Screen,Urine PRESUMPTIVE NEGATIVE; Methadone Screen,Urine PRESUMPTIVE NEGATIVE; Opiate Screen,Urine PRESUMPTIVE NEGATIVE
--- NOTE | 2019-02-17 13:47 | XRay Report ---
CHEST 1 VIEW 02/17/2019 1:17 PM INDICATION / CLINICAL INFORMATION: Chest pain for one month. Possible sepsis. COMPARISON: None available. FINDINGS: SUPPORT DEVICES: None. HEART / MEDIASTINUM: No significant abnormality. LUNGS / PLEURA: No significant pulmonary or pleural abnormality. No pneumothorax. ADDITIONAL FINDINGS: No significant additional findings. IMPRESSION: No acute abnormality of the chest. Signer Name: Darrick Huffman MD Signed: 02/17/2019 1:42 PM Workstation Name: [id number]
[2019-02-17 13:48] LABS: Bilirubin,Direct < 0.2 mg/dL (0-0.2)
[2019-02-17 13:53] LABS: Eosinophils % (Manual) 0 % (0.0-4.3); Total Cells Counted 100
[2019-02-17 13:54] LABS: RBC Morphology Normal
[2019-02-17 13:55] LABS: Platelet Estimate Consistent w Auto
[2019-02-17] MEDS ORDERED: MERREM 1,000 MG in NACL 0.9% 100 ML IV ONE (14:42)
[2019-02-17 14:59] LABS: Calcium 8.8 mg/dL (8.4-10.2)
[2019-02-17] MEDS ORDERED: NACL 0.45% 1000 ML 1,000 ML IV SCH (16:00)
--- NOTE | 2019-02-17 16:11 | History and Physical Report ---
History of Present Illness Date of examination: 02/17/19 Date of admission: 02/17/2019 Chief complaint: Vomiting all night Altered sensorium since last night History of present illness: 33 yearl old AAM with history of Type 1 Diabetes sent from [facility] for persistent vomiting since last night.He became severely confused and Lethargic since this afternoon.Patient has IDDM and HTN.Patient admitted to [facility] for partial treatment program.patient is lethargic and Obtunded.Unable to give history.No fever or chills.Noncompliant with Insulin.No recent travel.No IV drug use. Past Medical History Hypertension: Yes Diabetes: Yes Psychiatric Treatment: Yes Surgical History No Social History Smoking Status: Never Smoker Substance Use Type: None Family History Htn Medications Home Medications: Home Medications Medication Instructions Recorded Confirmed Last Taken Type Insulin Aspart [NovoLOG Flexpen] 7 unit SQ TIDWM 03/29/14 09/20/14 Unknown History Lisinopril 20 mg PO DAILY 04/01/14 09/20/14 08/30/14 History Insulin Detemir [Levemir Flextouch] 30 units SQ QHS 09/20/14 09/20/14 Unknown History Review of Systems ROS: Stated complaint: VOMIT/DEHYDRATED/DISORIENTED Other details as noted in HPI Comment: Unobtainable due to pts medical conditions Medications and Allergies Allergies Allergy/AdvReac Type Severity Reaction Status Date / Time No Known Allergies Allergy Unverified 03/29/14 14:49 Home Medications Medication Instructions Recorded Confirmed Last Taken Type Insulin Aspart [NovoLOG Flexpen] 7 unit SQ TIDWM 03/29/14 09/20/14 Unknown History Lisinopril 20 mg PO DAILY 04/01/14 09/20/14 08/30/14 History Insulin Detemir [Levemir Flextouch] 30 units SQ QHS 09/20/14 09/20/14 Unknown History Active Meds: Active Medications Dextrose (D50w (25gm) Syringe) 0 ml IV ONCE PRN PRN Reason: Hypoglycemia Insulin Human Regular 100 (units/ Sodium Chloride) 100 mls @ 1 mls/hr IV TITR EMILIANO; Protocol Last Titration: 02/17/19 15:49 Dose: 8 units/hr, 8 mls/hr Documented by: Sodium Chloride (Nacl 0.45% 1000 Ml) 1,000 mls @ 150 mls/hr IV DIRECT EMILIANO Exam - Physical Exam Narrative exam: Patient is lethargic and decreased responsiveness - Constitutional Vitals: Temp Pulse Resp BP Pulse Ox 97.6 F 112 H 11 L 122/73 100 02/17/19 12:15 02/17/19 16:00 02/17/19 16:00 02/17/19 16:00 02/17/19 16:00 General appearance: Present: mild distress, well-nourished - EENT Eyes: Present: PERRL ENT: hearing intact, clear oral mucosa, other (Tongue is dry) - Neck Neck: Present: supple, normal ROM - Respiratory Respiratory effort: normal Respiratory: bilateral: CTA - Cardiovascular Heart rate: 98 Rhythm: regular Heart Sounds: Present: S1 & S2. Absent: rub, click - Extremities Extremities: no ischemia, pulses intact, pulses symmetrical, No edema Peripheral Pulses: within normal limits - Abdominal General gastrointestinal: Present: soft, non-tender, non-distended, normal bowel sounds Male genitourinary: Present: normal - Rectal Rectal Exam: deferred - Integumentary Integumentary: Present: clear, warm, dry - Musculoskeletal Musculoskeletal: generalized weakness - Psychiatric Psychiatric: depressed, other (Altered sensorium) - Neurologic Neurologic: moves all extremities, other (ENGINEERING INSPECTOR exam could not be done b/c of al tered sensorium.) - Allied Health Allied health notes reviewed: nursing, case management Results - Labs CBC & Chem 7: 02/17/19 12:37 02/18/19 00:06 Labs: Laboratory Last Values WBC 21.5 K/mm3 (4.5-11.0) H 02/17/19 12:37 RBC 3.99 M/mm3 (3.65-5.03) 02/17/19 12:37 Hgb 12.3 gm/dl (11.8-15.2) 02/17/19 12:37 Hct 48.7 % (35.5-45.6) H 02/17/19 12:37 MCV 122 fl (84-94) H 02/17/19 12:37 MCH 31 pg (28-32) 02/17/19 12:37 MCHC 25 % (32-34) L 02/17/19 12:37 RDW 17.4 % (13.2-15.2) H 02/17/19 12:37 Plt Count 323 K/mm3 (140-440) 02/17/19 12:37 [place] % (Auto) 7.0 % (0.0-7.3) 02/17/19 12:37 Eos % (Auto) 0.1 % (0.0-4.3) 02/17/19 12:37 [place] # 1.5 K/mm3 (0.0-0.8) H 02/17/19 12:37 Eos # 0.0 K/mm3 (0.0-0.4) 02/17/19 12:37 Baso # 0.2 K/mm3 (0.0-0.1) H 02/17/19 12:37 Add Manual Diff Complete 02/17/19 12:37 Total Counted 100 02/17/19 12:37 Seg Neutrophils % 84.8 % (40.0-70.0) H 02/17/19 12:37 Seg Neuts % (Manual) 84.0 % (40.0-70.0) H 02/17/19 12:37 0 % 02/17/19 12:37 7.0 % (13.4-35.0) L 02/17/19 12:37 Reactive Lymphs % (Man) 0 % 02/17/19 12:37 5.0 % (0.0-7.3) 02/17/19 12:37 0 % (0.0-4.3) 02/17/19 12:37 1.0 % (0.0-1.8) 02/17/19 12:37 3.0 % 02/17/19 12:37 0 % 02/17/19 12:37 0 % 02/17/19 12:37 0 % 02/17/19 12:37 Nucleated RBC % Not Reportable 02/17/19 12:37 Seg Neutrophils # 18.8 K/mm3 (1.8-7.7) H 02/17/19 12:37 Seg Neutrophils # Man 18.1 K/mm3 (1.8-7.7) H 02/17/19 12:37 Band Neutrophils # 0.0 K/mm3 02/17/19 12:37 1.5 K/mm3 (1.2-5.4) 02/17/19 12:37 Abs React Lymphs (Man) 0.0 K/mm3 02/17/19 12:37 1.1 K/mm3 (0.0-0.8) H 02/17/19 12:37 0.0 K/mm3 (0.0-0.4) 02/17/19 12:37 0.2 K/mm3 (0.0-0.1) H 02/17/19 12:37 0.6 K/mm3 02/17/19 12:37 0.0 K/mm3 02/17/19 12:37 0.0 K/mm3 02/17/19 12:37 Blast Cells # 0.0 K/mm3 02/17/19 12:37 WBC Morphology Not Reportable 02/17/19 12:37 Hypersegmented Neuts Not Reportable 02/17/19 12:37 Hyposegmented Neuts Not Reportable 02/17/19 12:37 Hypogranular Neuts Not Reportable 02/17/19 12:37 Not Reportable 02/17/19 12:37 Not Reportable 02/17/19 12:37 Not Reportable 02/17/19 12:37 Not Reportable 02/17/19 12:37 Not Reportable 02/17/19 12:37 Not Reportable 02/17/19 12:37 Consistent w auto 02/17/19 12:37 Not Reportable 02/17/19 12:37 Plt Clumps, EDTA Not Reportable 02/17/19 12:37 Not Reportable 02/17/19 12:37 Not Reportable 02/17/19 12:37 Not Reportable 02/17/19 12:37 Plt Morphology Comment Not Reportable 02/17/19 12:37 RBC Morphology Normal 02/17/19 12:37 Dimorphic RBCs Not Reportable 02/17/19 12:37 Few 02/17/19 12:37 Not Reportable 02/17/19 12:37 Not Reportable 02/17/19 12:37 Not Reportable 02/17/19 12:37 Not Reportable 02/17/19 12:37 Not Reportable 02/17/19 12:37 Not Reportable 02/17/19 12:37 Not Reportable 02/17/19 12:37 Not Reportable 02/17/19 12:37 Not Reportable 02/17/19 12:37 Not Reportable 02/17/19 12:37 Not Reportable 02/17/19 12:37 Not Reportable 02/17/19 12:37 Not Reportable 02/17/19 12:37 Not Reportable 02/17/19 12:37 Not Reportable 02/17/19 12:37 Not Reportable 02/17/19 12:37 Not Reportable 02/17/19 12:37 Not Reportable 02/17/19 12:37 Acanthocytes (Spur) Not Reportable 02/17/19 12:37 Rouleaux Not Reportable 02/17/19 12:37 Not Reportable 02/17/19 12:37 Not Reportable 02/17/19 12:37 Not Reportable 02/17/19 12:37 Not Reportable 02/17/19 12:37 Hem Pathologist Commnt No 02/17/19 12:37 PT 14.6 Sec. (12.2-14.9) 02/17/19 12:37 INR 1.17 (0.87-1.13) H 02/17/19 12:37 APTT 29.5 Sec. (24.2-36.6) 02/17/19 12:37 POC ABG pH 7.073 (7.35-7.45) L 02/17/19 13:06 POC ABG pO2 123 (80-105) H 02/17/19 13:06 POC ABG HCO3 7.0 (22-26 mml/L) 02/17/19 13:06 POC ABG Total CO2 8 (23-27mmol/L) 02/17/19 13:06 POC ABG O2 Sat 97 02/17/19 13:06 POC ABG Base Excess -23 ((-2) - (+3)mmol/L) 02/17/19 13:06 VBG pH 7.137 (7.320-7.420) L* 02/17/19 12:37 21 % 02/17/19 13:06 Sodium 129 mmol/L (137-145) L D 02/17/19 14:28 Potassium 6.7 mmol/L (3.6-5.0) H* D 02/17/19 14:28 Chloride 83.1 mmol/L (98-107) L 02/17/19 14:28 Carbon Dioxide 10 mmol/L (22-30) L 02/17/19 14:28 43 mmol/L 02/17/19 14:28 BUN 81 mg/dL (9-20) H 02/17/19 14:28 3.1 mg/dL (0.8-1.5) H 02/17/19 14:28 Estimated GFR 28 ml/min 02/17/19 14:28 26 % 02/17/19 14:28 Glucose 1726 mg/dL (75-100) H* 02/17/19 14:28 POC Glucose > 500 (70-105) H 02/17/19 12:17 Lactic Acid 2.60 mmol/L (0.7-2.0) H* 02/17/19 13:59 Calcium 8.8 mg/dL (8.4-10.2) 02/17/19 14:28 Phosphorus 12.10 mg/dL (2.5-4.5) H 02/17/19 12:53 Magnesium 3.70 mg/dL (1.7-2.3) H 02/17/19 12:53 0.50 mg/dL (0.1-1.2) 02/17/19 12:53 < 0.2 mg/dL (0-0.2) 02/17/19 12:53 0.3 mg/dL 02/17/19 12:53 AST 20 units/L (5-40) 02/17/19 12:53 ALT 21 units/L (7-56) 02/17/19 12:53 158 units/L (35-129) H 02/17/19 12:53 236 units/L (91-180) H 02/17/19 12:37 118 units/L (55-170) 02/17/19 12:37 CK-MB (CK-2) 3.9 ng/mL (0.0-4.0) 02/17/19 12:37 CK-MB (CK-2) Rel Index 3.3 (0-4) 02/17/19 12:37 < 0.010 ng/mL (0.00-0.029) 02/17/19 12:37 NT-Pro-B Natriuret Pep 597.9 pg/mL (0-450) H 02/17/19 12:37 6.2 g/dL (6.3-8.2) L 02/17/19 12:53 3.8 g/dL (3.9-5) L 02/17/19 12:53 1.6 % 02/17/19 12:53 16 units/L (13-60) 02/17/19 12:53 Yellow (Yellow) 02/17/19 13:13 Slightly-cloudy (Clear) 02/17/19 13:13 5.0 (5.0-7.0) 02/17/19 13:13 Ur Specific [place] 1.021 (1.003-1.030) 02/17/19 13:13 <15 mg/dl mg/dL (Negative) 02/17/19 13:13 >=500 mg/dL (Negative) 02/17/19 13:13 Tr mg/dL (Negative) 02/17/19 13:13 Sm (Negative) 02/17/19 13:13 Neg (Negative) 02/17/19 13:13 Neg (Negative) 02/17/19 13:13 < 2.0 mg/dL (<2.0) 02/17/19 13:13 Ur Leukocyte Esterase Neg (Negative) 02/17/19 13:13 4.0 /HPF (0.0-6.0) 02/17/19 13:13 2.0 /HPF (0.0-6.0) 02/17/19 13:13 U Epithel Cells (Auto) < 1.0 /HPF (0-13.0) 02/17/19 13:13 Few /HPF 02/17/19 13:13 Presumptive negative 02/17/19 13:13 Presumptive negative 02/17/19 13:13 Ur Barbiturates Screen Presumptive negative 02/17/19 13:13 Ur Phencyclidine Scrn Presumptive negative 02/17/19 13:13 Ur Amphetamines Screen Presumptive negative 02/17/19 13:13 U Benzodiazepines Scrn Presumptive negative 02/17/19 13:13 Presumptive negative 02/17/19 13:13 U Marijuana (THC) Screen Presumptive negative 02/17/19 13:13 Disclamer 02/17/19 13:13 Short CBC 02/17/19 Range/Units 12:37 WBC 21.5 H (4.5-11.0) K/mm3 Hgb 12.3 (11.8-15.2) gm/dl Hct 48.7 H (35.5-45.6) % Plt Count 323 (140-440) K/mm3 BMP 02/17/19 02/17/19 12:53 14:28 Sodium 118 L* 129 L D Potassium 9.5 H* 6.7 H* D Chloride 71.4 L 83.1 L Carbon Dioxide 5 L* 10 L BUN 84 H 81 H Creatinine 3.4 H 3.1 H Glucose 2068 H* 1726 H* Calcium 8.1 L 8.8 Cardiac Enzymes 02/17/19 Range/Units 12:37 Total Creatine Kinase 118 (55-170) units/L CK-MB (CK-2) 3.9 (0.0-4.0) ng/mL Troponin T < 0.010 (0.00-0.029) ng/mL Liver Function 02/17/19 Range/Units 12:53 Total Bilirubin 0.50 (0.1-1.2) mg/dL Direct Bilirubin < 0.2 (0-0.2) mg/dL AST 20 (5-40) units/L ALT 21 (7-56) units/L Alkaline Phosphatase 158 H (35-129) units/L Albumin 3.8 L (3.9-5) g/dL Urine 02/17/19 Range/Units 13:13 Urine Color Yellow (Yellow) Urine pH 5.0 (5.0-7.0) Ur Specific [place] 1.021 (1.003-1.030) Urine Protein <15 mg/dl (Negative) mg/dL Urine Glucose (UA) >=500 (Negative) mg/dL - Imaging and Cardiology EKG: report reviewed Chest x-ray: report reviewed (NAF) Imaging and Cardiology: Renal Ultrasound IMPRESSION: 1. The left kidney is heterogeneous and echogenic in appearance most consistent with medical renal disease. No hydronephrosis or renal mass identified. Assessment and Plan Assessment and plan: Critical care time 40 minutes: The high probabilty of a clinically significant ,sudden or life threatening deterioration of the pulmonary cardiac renal systems required my full attention ,intervention and personal management.The aggregate critical care time is 40 minutes.The time is in addition to time spent [facility] includes the following 1 Data review and interpretation 2.patient assesment and monitoring of vital signs 3 Documentation 4.Medication orders and management Advance Directives: Yes (full code) VTE prophylaxis?: Chemical Plan of care discussed with patient/family: Yes - Patient Problems (1) Diabetic hyperosmolar non-ketotic state Current Visit: Yes Status: Acute Plan to address problem: Patient has a blood glucose of 1726 Very high IV insulin and IV fluids started Also IV antibiotics in the form of Meropenem and vancomycin as per PK consult (2) Hyperkalemia Current Visit: Yes Status: Acute Plan to address problem: Patient given Kayexalate calcium gluconate and sodium bicarbonate and that D50 W and IV insulin (3) Acute kidney injury Current Visit: Yes Status: Acute Plan to address problem: Secondary to ATN and severe dehydration IV fluids for now Nephrology consult requested (4) Sepsis Current Visit: Yes Status: Acute Plan to address problem: Sepsis highly likely High white count Continue IV antibiotics in the form of meropenem and vancomycin Check blood cultures and urine cultures (5) Metabolic acidosis Current Visit: Yes Status: Acute Plan to address problem: Severe-- IV bicarbonate every 6hrs (6) HTN (hypertension) Current Visit: Yes Status: Chronic Qualifiers: Hypertension type: essential hypertension Qualified Code(s): I10 - Essential (primary) hypertension Plan to address problem: Cont antihypertensives (7) DVT prophylaxis Current Visit: Yes Status: Acute Plan to address problem: OnHeparin and GI prophylaxis
[2019-02-17] MEDS ORDERED: DILAUDID IV PRN (16:12)
[2019-02-17] MEDS ORDERED: ZOFRAN IV PRN (16:12)
[2019-02-17] MEDS ORDERED: SODIUM CHLORIDE FLUSH SYRINGE 10 ML IV PRN ×2 (16:12)
[2019-02-17] MEDS ORDERED: TYLENOL PO PRN (16:12)
[2019-02-17] MEDS ORDERED: ASPIRIN PR ONE (16:30)
[2019-02-17] MEDS ORDERED: NACL 0.45% 1000 ML 1,000 ML IV ONE (16:55)
[2019-02-17] MEDS ORDERED: VANCOMYCIN PHARMACY TO DOSE IV SCH (17:00)
[2019-02-17] MEDS ORDERED: D5W/0.45% NACL/KCL 20 MEQ 20 MEQ/1,000 ML BAG IV SCH (17:00)
[2019-02-17] MEDS ORDERED: NACL 0.9% 1000 ML 1,000 ML IV SCH (17:00)
[2019-02-17] MEDS ORDERED: KCL 10MEQ/100ML 10 MEQ/100 ML BAG IV SCH (17:00)
[2019-02-17 17:03] LABS: Calcium 9.2 mg/dL (8.4-10.2)
[2019-02-17] MEDS: KCL 10MEQ/100ML 10 MEQ/100 ML BAG IV SCH ×3 (17:11→18:34)
[2019-02-17] MEDS ORDERED: VANCOMYCIN 1,250 MG in NACL 0.9% 250ML 250 ML IV ONE (17:15)
--- NOTE | 2019-02-17 17:52 | Ultrasound Report ---
Limited renal ultrasound INDICATION / CLINICAL INFORMATION: Acute renal failure.. The ordering physician requested only left kidney imaged. COMPARISON: None available. FINDINGS: The left kidney has a normal size measuring 10.6 cm. There is normal cortical thickness. The renal pa renchyma appears slightly heterogeneous and slightly echogenic consistent with medical renal disease. No hydronephrosis or renal mass is identified. IMPRESSION: 1. The left kidney is heterogeneous and echogenic in appearance most consistent with medical renal di sease. No hydronephrosis or renal mass identified. Signer Name: Fatmata Hernández MD Signed: 02/17/2019 5:48 PM Workstation Name: [id number]
[2019-02-17 18:32] LABS: Calcium 9.4 mg/dL (8.4-10.2)
[2019-02-17 18:41] LABS: BUN/Creatinine Ratio TNR; Blood Urea Nitrogen TNR mg/dL (9-20)
[2019-02-17 18:42] LABS: Calcium TNR mg/dL (8.4-10.2); Hemolysis Index TNR
[2019-02-17 21:17] LABS: Calcium 9.3 mg/dL (8.4-10.2)
[2019-02-17] MEDS ORDERED: MERREM/NS 500 MG/50 ML 500 MG/50 ML BAG IV SCH (22:00)
[2019-02-17] MEDS ORDERED: SODIUM CHLORIDE FLUSH SYRINGE 10 ML IV SCH (22:00)
[2019-02-17] MEDS: SODIUM CHLORIDE FLUSH SYRINGE 10 ML IV SCH (22:39)
[2019-02-17 22:59] LABS: Creatinine,Urine 210.5 mg/dL (0.1-20.0)
[2019-02-17 23:02] LABS: Bilirubin,Urine NEG (Negative); Blood,Urine SM (Negative); Color,Urine Yellow (Yellow); Granular Casts,Urine 14 /LPF; Mucus,Urine 2+ /HPF; Urobilinogen,Urine < 2.0 mg/dL (<2.0)
[2019-02-17 23:09] LABS: Calcium 9.5 mg/dL (8.4-10.2)
[2019-02-18] MEDS ORDERED: MERREM 1,000 MG in NACL 0.9% 100 ML IV SCH
[2019-02-18 06:13] LABS: BUN/Creatinine Ratio 42; Blood Urea Nitrogen 59 mg/dL (9-20); Calcium 9.1 mg/dL (8.4-10.2); Hemolysis Index 149
[2019-02-18] MEDS ORDERED: KIONEX PO ONE (06:30)
[2019-02-18] MEDS ORDERED: D5/0.45NS 1,000 ML IV SCH (07:00)
--- NOTE | 2019-02-18 07:51 | Progress Note ---
Assessment and Plan Assessment and plan: 33 year old AAM with history of Type 1 Diabetes sent from [facility] Partial treatment program for persistent vomiting since last night. He became severely confused and Lethargic since this afternoon. Patient has IDDM and HTN. Patient admitted to [facility] for partial treatment program. Patient is lethargic and Obtunded. Unable to give history.No fever or chills. Noncompliant with Insulin. No recent travel. No IV drug use. Diabetic hyperosmolar non-ketotic state Patient has a blood glucose of 1726 Very high IV insulin and IV fluids started Also IV antibiotics in the form of Meropenem and vancomycin as per PK consult The patient reports that he has been out of his Lantus and Humulin for about 7 days. Status of counseling provided to the patient. Hypernatremia/Hyponatremia Discussed with Neprhologist, will adjust fluids. Hyperkalemia Current Visit: Yes Status: Acute Plan to address problem: Patient given Kayexalate calcium gluconate and sodium bicarbonate and that D50 W and IV insulin Recheck K today Acute kidney injury Current Visit: Yes Status: Acute Plan to address problem: Secondary to ATN and severe dehydration IV fluids for now Nephrology consult requested Sepsis vs SIRS without organ dysfunction Current Visit: Yes Status: Acute Plan to address problem: Doubt sepsis. SIRS. U/A ?Contamination, initial was negative. Repeat post removal of indwelling catheter and obtain clean catch WBC likely secondary to demargination Rocephin for Now Check blood cultures and urine cultures Metabolic acidosis-ANION GAP Current Visit: Yes Status: Acute Plan to address problem: Severe-- IV bicarbonate every 6hrs HTN (hypertension) Current Visit: Yes Status: Chronic Qualifiers: Hypertension type: essential hypertension Qualified Code(s): I10 - Essential (primary) hypertension Plan to address problem: Cont antihypertensives Uncontrolled DM As noted above. Continue current treatment. Will obtain home meds and update medications list. Counselling provided Gastro enteritis Secondary to DKA DVT prophylaxis Current Visit: Yes Status: Acute Plan to address problem: On Heparin and GI prophylaxis The high probability of a clinically significant, sudden or life threatening deterioration of the [Endocrine] system(s) required my full and direct attention, intervention and personal management. The aggregate critical care time was [45] minutes. This time is in addition to time spent performing reported procedures but includes the following: [x] Data Review and interpretation [x] Patient assessment and monitoring of vital signs [x] Documentation [x] Medication orders and management History Interval history: Patient seen and examined, Lethargic, admitted with DKA. No adverse event reported by Nursing staff Hospitalist Physical - Physical exam Narrative exam: VITAL SIGNS: Reviewed. GENERAL: The patient appears lethargic, mild respiratory distress, Vital signs as documented. HEAD: No signs of head trauma. EYES: Pupils are equal. Extraocular motions intact. EARS: Hearing grossly intact. MOUTH: Oropharynx is normal. NECK: No adenopathy, no JVD. CHEST: Chest with clear breath sounds bilaterally. No wheezes, rales, or rhonchi. CARDIAC: Regular rate and rhythm. S1 and S2, without murmurs, gallops, or rubs. VASCULAR: No Edema. Peripheral pulses normal and equal in all extremities. ABDOMEN: Soft, non tender and non distended. No rebound or guarding, and no masses palpated. Bowel Sounds normal. MUSCULOSKELETAL: Good range of motion of all major joints. Extremities without clubbing, cyanosis or edema. NEUROLOGIC EXAM: Alert and oriented x 3 No focal sensory or strength deficits. Speech normal. Follows commands. PSYCHIATRIC: Mood normal. SKIN: detial exam as documented in skin assessment - Constitutional Vitals: Temp Pulse Resp BP Pulse Ox 97.5 F L 111 H 13 113/71 99 02/18/19 04:00 02/18/19 06:21 02/18/19 06:21 02/18/19 06:21 02/18/19 06:21 General appearance: Present: mild distress, well-nourished Results - Labs CBC & Chem 7: 02/17/19 12:37 02/18/19 07:53 Labs: Laboratory Last Values WBC 21.5 K/mm3 (4.5-11.0) H 02/17/19 12:37 RBC 3.99 M/mm3 (3.65-5.03) 02/17/19 12:37 Hgb 12.3 gm/dl (11.8-15.2) 02/17/19 12:37 Hct 48.7 % (35.5-45.6) H 02/17/19 12:37 MCV 122 fl (84-94) H 02/17/19 12:37 MCH 31 pg (28-32) 02/17/19 12:37 MCHC 25 % (32-34) L 02/17/19 12:37 RDW 17.4 % (13.2-15.2) H 02/17/19 12:37 Plt Count 323 K/mm3 (140-440) 02/17/19 12:37 [place] % (Auto) 7.0 % (0.0-7.3) 02/17/19 12:37 Eos % (Auto) 0.1 % (0.0-4.3) 02/17/19 12:37 [place] # 1.5 K/mm3 (0.0-0.8) H 02/17/19 12:37 Eos # 0.0 K/mm3 (0.0-0.4) 02/17/19 12:37 Baso # 0.2 K/mm3 (0.0-0.1) H 02/17/19 12:37 Add Manual Diff Complete 02/17/19 12:37 Total Counted 100 02/17/19 12:37 Seg Neutrophils % 84.8 % (40.0-70.0) H 02/17/19 12:37 Seg Neuts % (Manual) 84.0 % (40.0-70.0) H 02/17/19 12:37 0 % 02/17/19 12:37 7.0 % (13.4-35.0) L 02/17/19 12:37 Reactive Lymphs % (Man) 0 % 02/17/19 12:37 5.0 % (0.0-7.3) 02/17/19 12:37 0 % (0.0-4.3) 02/17/19 12:37 1.0 % (0.0-1.8) 02/17/19 12:37 3.0 % 02/17/19 12:37 0 % 02/17/19 12:37 0 % 02/17/19 12:37 0 % 02/17/19 12:37 Nucleated RBC % Not Reportable 02/17/19 12:37 Seg Neutrophils # 18.8 K/mm3 (1.8-7.7) H 02/17/19 12:37 Seg Neutrophils # Man 18.1 K/mm3 (1.8-7.7) H 02/17/19 12:37 Band Neutrophils # 0.0 K/mm3 02/17/19 12:37 1.5 K/mm3 (1.2-5.4) 02/17/19 12:37 Abs React Lymphs (Man) 0.0 K/mm3 02/17/19 12:37 1.1 K/mm3 (0.0-0.8) H 02/17/19 12:37 0.0 K/mm3 (0.0-0.4) 02/17/19 12:37 0.2 K/mm3 (0.0-0.1) H 02/17/19 12:37 0.6 K/mm3 02/17/19 12:37 0.0 K/mm3 02/17/19 12:37 0.0 K/mm3 02/17/19 12:37 Blast Cells # 0.0 K/mm3 02/17/19 12:37 WBC Morphology Not Reportable 02/17/19 12:37 Hypersegmented Neuts Not Reportable 02/17/19 12:37 Hyposegmented Neuts Not Reportable 02/17/19 12:37 Hypogranular Neuts Not Reportable 02/17/19 12:37 Not Reportable 02/17/19 12:37 Not Reportable 02/17/19 12:37 Not Reportable 02/17/19 12:37 Not Reportable 02/17/19 12:37 Not Reportable 02/17/19 12:37 Not Reportable 02/17/19 12:37 Consistent w auto 02/17/19 12:37 Not Reportable 02/17/19 12:37 Plt Clumps, EDTA Not Reportable 02/17/19 12:37 Not Reportable 02/17/19 12:37 Not Reportable 02/17/19 12:37 Not Reportable 02/17/19 12:37 Plt Morphology Comment Not Reportable 02/17/19 12:37 RBC Morphology Normal 02/17/19 12:37 Dimorphic RBCs Not Reportable 02/17/19 12:37 Few 02/17/19 12:37 Not Reportable 02/17/19 12:37 Not Reportable 02/17/19 12:37 Not Reportable 02/17/19 12:37 Not Reportable 02/17/19 12:37 Not Reportable 02/17/19 12:37 Not Reportable 02/17/19 12:37 Not Reportable 02/17/19 12:37 Not Reportable 02/17/19 12:37 Not Reportable 02/17/19 12:37 Not Reportable 02/17/19 12:37 Not Reportable 02/17/19 12:37 Not Reportable 02/17/19 12:37 Not Reportable 02/17/19 12:37 Not Reportable 02/17/19 12:37 Not Reportable 02/17/19 12:37 Not Reportable 02/17/19 12:37 Not Reportable 02/17/19 12:37 Not Reportable 02/17/19 12:37 Acanthocytes (Spur) Not Reportable 02/17/19 12:37 Rouleaux Not Reportable 02/17/19 12:37 Not Reportable 02/17/19 12:37 Not Reportable 02/17/19 12:37 Not Reportable 02/17/19 12:37 Not Reportable 02/17/19 12:37 Hem Pathologist Commnt No 02/17/19 12:37 PT 14.6 Sec. (12.2-14.9) 02/17/19 12:37 INR 1.17 (0.87-1.13) H 02/17/19 12:37 APTT 29.5 Sec. (24.2-36.6) 02/17/19 12:37 POC ABG pH 7.073 (7.35-7.45) L 02/17/19 13:06 POC ABG pO2 123 (80-105) H 02/17/19 13:06 POC ABG HCO3 7.0 (22-26 mml/L) 02/17/19 13:06 POC ABG Total CO2 8 (23-27mmol/L) 02/17/19 13:06 POC ABG O2 Sat 97 02/17/19 13:06 POC ABG Base Excess -23 ((-2) - (+3)mmol/L) 02/17/19 13:06 VBG pH 7.137 (7.320-7.420) L* 02/17/19 12:37 21 % 02/17/19 13:06 Sodium 158 mmol/L (137-145) H 02/18/19 05:27 Potassium 6.9 mmol/L (3.6-5.0) H* D 02/18/19 05:27 Chloride 117.9 mmol/L (98-107) H 02/18/19 05:27 Carbon Dioxide 24 mmol/L (22-30) 02/18/19 05:27 23 mmol/L 02/18/19 05:27 BUN 59 mg/dL (9-20) H 02/18/19 05:27 1.4 mg/dL (0.8-1.5) 02/18/19 05:27 Estimated GFR > 60 ml/min 02/18/19 05:27 42 % 02/18/19 05:27 Glucose 164 mg/dL (75-100) H 02/18/19 05:27 POC Glucose 208 (70-105) H 02/18/19 06:07 10.5 % (4-6) H 02/17/19 16:24 Lactic Acid 2.60 mmol/L (0.7-2.0) H* 02/17/19 13:59 Calcium 9.1 mg/dL (8.4-10.2) 02/18/19 05:27 Phosphorus 3.30 mg/dL (2.5-4.5) D 02/18/19 05:28 Magnesium 3.80 mg/dL (1.7-2.3) H 02/17/19 16:27 0.50 mg/dL (0.1-1.2) 02/17/19 12:53 < 0.2 mg/dL (0-0.2) 02/17/19 12:53 0.3 mg/dL 02/17/19 12:53 AST 20 units/L (5-40) 02/17/19 12:53 ALT 21 units/L (7-56) 02/17/19 12:53 158 units/L (35-129) H 02/17/19 12:53 236 units/L (91-180) H 02/17/19 12:37 118 units/L (55-170) 02/17/19 12:37 CK-MB (CK-2) 3.9 ng/mL (0.0-4.0) 02/17/19 12:37 CK-MB (CK-2) Rel Index 3.3 (0-4) 02/17/19 12:37 < 0.010 ng/mL (0.00-0.029) 02/17/19 12:37 NT-Pro-B Natriuret Pep 597.9 pg/mL (0-450) H 02/17/19 12:37 6.2 g/dL (6.3-8.2) L 02/17/19 12:53 3.8 g/dL (3.9-5) L 02/17/19 12:53 1.6 % 02/17/19 12:53 16 units/L (13-60) 02/17/19 12:53 Yellow (Yellow) 02/17/19 22:40 Cloudy (Clear) 02/17/19 22:40 5.0 (5.0-7.0) 02/17/19 22:40 Ur Specific [place] 1.024 (1.003-1.030) 02/17/19 22:40 30 mg/dl mg/dL (Negative) 02/17/19 22:40 >=500 mg/dL (Negative) 02/17/19 22:40 Tr mg/dL (Negative) 02/17/19 22:40 Sm (Negative) 02/17/19 22:40 Neg (Negative) 02/17/19 22:40 Neg (Negative) 02/17/19 22:40 < 2.0 mg/dL (<2.0) 02/17/19 22:40 Ur Leukocyte Esterase Lg (Negative) 02/17/19 22:40 43.0 /HPF (0.0-6.0) H 02/17/19 22:40 7.0 /HPF (0.0-6.0) 02/17/19 22:40 U Epithel Cells (Auto) < 1.0 /HPF (0-13.0) 02/17/19 13:13 Granular Casts 14 /LPF 02/17/19 22:40 2+ /HPF 02/17/19 22:40 210.5 mg/dL (0.1-20.0) H 02/17/19 22:40 13 mmol/L 02/17/19 22:40 Presumptive negative 02/17/19 13:13 Presumptive negative 02/17/19 13:13 Ur Barbiturates Screen Presumptive negative 02/17/19 13:13 Ur Phencyclidine Scrn Presumptive negative 02/17/19 13:13 Ur Amphetamines Screen Presumptive negative 02/17/19 13:13 U Benzodiazepines Scrn Presumptive negative 02/17/19 13:13 Presumptive negative 02/17/19 13:13 U Marijuana (THC) Screen Presumptive negative 02/17/19 13:13 Disclamer 02/17/19 13:13 Active Medications - Current Medications Current Medications: Generic Name Dose Route Start Last Admin Trade Name Freq PRN Reason Stop Dose Admin Acetaminophen 650 mg 02/17/19 16:12 Tylenol PO Q4H PRN Pain MILD(1-3)/Fever >100.5/SNOW Dextrose 0 ml 02/17/19 16:14 D50w (25gm) Syringe IV PRN PRN Hypoglycemia Famotidine 20 mg 02/18/19 10:00 Pepcid IV BID EMILIANO Heparin Sodium (Porcine) 5,000 unit 02/18/19 10:00 Heparin SUB-Q Q12HR EMILIANO Hydromorphone HCl 0.5 mg 02/17/19 16:12 Dilaudid IV Q3H PRN Pain , Severe (7-10) Insulin Human Regular 100 100 mls @ 1 mls/hr 02/17/19 17:00 02/18/19 06:10 units/ Sodium Chloride IV 6 units/hr TITR EMILIANO 6 mls/hr Titration Protocol 1 UNITS/HR Meropenem 500 mg in 50 mls @ 50 mls/hr 02/17/19 22:00 02/17/19 22:39 Merrem/Ns 500 Mg/50 Ml IV 50 mls/hr Q12HR EMILIANO Administration Dextrose/Sodium Chloride 1,000 mls @ 125 mls/hr 02/18/19 07:00 02/18/19 06:58 D5/0.45ns IV 125 mls/hr DIRECT EMILIANO Administration Vancomycin HCl 1 gm in 250 mls @ 167.007 mls/hr 02/18/19 10:00 Vancomycin/Ns 1 Gm/250 Ml IV Q24HR EMILIANO Insulin Glargine 30 units 02/18/19 22:00 Lantus SUB-Q QHS EMILIANO Ondansetron HCl 4 mg 02/17/19 16:12 Zofran IV Q8H PRN Nausea And Vomiting Sodium Chloride 10 ml 02/17/19 22:00 02/17/19 22:39 Sodium Chloride Flush Syringe 10 Ml IV 10 ml BID EMILIANO Administration Sodium Chloride 10 ml 02/17/19 16:12 Sodium Chloride Flush Syringe 10 Ml IV PRN PRN LINE FLUSH
[2019-02-18] MEDS ORDERED: INTROPIN DRIP 800 MG/D5W 250 ML 800 MG/250 ML BAG IV SCH (08:00)
[2019-02-18 08:34] LABS: BUN/Creatinine Ratio 35; Blood Urea Nitrogen 52 mg/dL (9-20); Hemolysis Index 8
--- NOTE | 2019-02-18 09:20 | Consultation ---
History of Present Illness - Reason for Consult Consult date: 02/18/19 acute renal failure, hyperkalemia - History of Present Illness The patient is a 33 YO male with history significant for Type 1 Diabetes and Schizophrenia who was sent from [facility] for persistent vomiting, confusion and lethargy. Patient is a very poor historian. Per patient he didn't take any of his meds for the past few days. Initial BP was 85/37 and was tachycardic. Labs were significant for K 9.5, creatinine 3.4, Sodium 118, bciarb 5 and glucose 2068. EKG showed changes suggestive of hyperkalemia. Patient was admitted for treatment of DKA. Nephrology was consulted for further evaluation. Past History Past Medical History: diabetes (type 1), other (Schizophrenia) Medications and Allergies Allergies Allergy/AdvReac Type Severity Reaction Status Date / Time No Known Allergies Allergy Unverified 03/29/14 14:49 Home Medications Medication Instructions Recorded Confirmed Last Taken Type Insulin Aspart [NovoLOG Flexpen] 7 unit SQ TIDWM 03/29/14 02/18/19 02/12/19 History Lisinopril 20 mg PO DAILY 04/01/14 02/18/19 08/30/14 History Insulin Detemir [Levemir Flextouch] 30 units SQ QHS 09/20/14 02/18/19 02/12/19 History 30units Active Meds: Active Medications Acetaminophen (Tylenol) 650 mg PO Q4H PRN PRN Reason: Pain MILD(1-3)/Fever >100.5/SNOW Dextrose (D50w (25gm) Syringe) 0 ml IV PRN PRN PRN Reason: Hypoglycemia Famotidine (Pepcid) 20 mg IV BID EMILIANO Heparin Sodium (Porcine) (Heparin) 5,000 unit SUB-Q Q12HR EMILIANO Hydromorphone HCl (Dilaudid) 0.5 mg IV Q3H PRN PRN Reason: Pain , Severe (7-10) Insulin Human Regular 100 (units/ Sodium Chloride) 100 mls @ 1 mls/hr IV TITR EMILIANO; Protocol Last Titration: 02/18/19 07:54 Dose: 4 units/hr, 4 mls/hr Documented by: Dextrose/Sodium Chloride (D5/0.45ns) 1,000 mls @ 125 mls/hr IV DIRECT EMILIANO Last Admin: 02/18/19 06:58 Dose: 125 mls/hr Documented by: Vancomycin HCl (Vancomycin/Ns 1 Gm/250 Ml) 1 gm in 250 mls @ 167.007 mls/hr IV Q24HR [facility] Ceftriaxone Sodium (Rocephin/Ns 1 Gm/50 Ml) 1 gm in 50 mls @ 100 mls/hr IV Q24HR [facility] Insulin Glargine (Lantus) 30 units SUB-Q QHS [facility] Ondansetron HCl (Zofran) 4 mg IV Q8H PRN PRN Reason: Nausea And Vomiting Sodium Chloride (Sodium Chloride Flush Syringe 10 Ml) 10 ml IV BID [facility] Last Admin: 02/17/19 22:39 Dose: 10 ml Documented by: Sodium Chloride (Sodium Chloride Flush Syringe 10 Ml) 10 ml IV PRN PRN PRN Reason: LINE FLUSH Review of Systems ROS unobtainable: due to mental status (very poor historian) Exam - Vital Signs Vital signs: Vital Signs Temp Pulse Resp BP Pulse Ox 98.0 F 108 H 18 85/37 100 02/17/19 12:06 02/17/19 12:06 02/17/19 12:06 02/17/19 12:06 02/17/19 12:06 - General Appearance General appearance: well-developed, appears stated age, other (no distress) EENT: ATNC, PERRL, mucous membranes dry, hearing intact Neck: Present: neck supple, trachea midline Respiratory: Clear to Ascultation Heart: regular, S1S2, no murmurs Gastrointestinal: Present: normoactive bowel sounds. Absent: tenderness, distended Integumentary: no rash, warm and dry Neurologic: no asterixis, other (somnolent, able to omve extremities) Musculoskeletal: Present: other (no edema) Results - Lab Results 02/17/19 12:37 02/18/19 13:25 Most recent lab results Calcium 9.0 mg/dL (8.4-10.2) 02/18/19 07:53 Phosphorus 3.30 mg/dL (2.5-4.5) D 02/18/19 05:28 Magnesium 3.80 mg/dL (1.7-2.3) H 02/17/19 16:27 210.5 mg/dL (0.1-20.0) H 02/17/19 22:40 13 mmol/L 02/17/19 22:40 - Image Kidney/bladder ultrasound: report reviewed Assessment and Plan 1. Acute kidney injury: Vasomotor LASHAWN in the setting of volume depletion and hypotension. Renal US was negative for hydro. Renal function is improving. Continue IV fluids. Monitor renal function. Avoid nephrotoxic agents. Meds dosage based on GFR. 2. FEN: Hyperkalemia, potassium level has improved. Monitor K level. Hypernatremia, on D5W. Metabolic acidosis, monitor. 3. DKA: Improving. Insulin drip. Monitor. 4. Schizophrenia.
[2019-02-18] MEDS: PEPCID IV SCH ×2 (09:51→22:14)
[2019-02-18] MEDS: HEPARIN SUB-Q SCH ×2 (09:51→22:14)
[2019-02-18] MEDS: ROCEPHIN/NS 1 GM/50 ML 1 GM/50 ML BAG IV SCH (09:51)
[2019-02-18] MEDS: SODIUM CHLORIDE FLUSH SYRINGE 10 ML IV SCH ×2 (09:52→22:15)
[2019-02-18] MEDS ORDERED: ZESTRIL PO SCH (10:00)
[2019-02-18] MEDS ORDERED: VANCOMYCIN/NS 1 GM/250 ML 1 GM/250 ML BAG IV SCH (10:00)
[2019-02-18] MEDS ORDERED: D5W 1,000 ML IV SCH (10:00)
--- NOTE | 2019-02-18 11:17 | Consultation ---
History of Present Illness - Reason for Consult Consult date: 02/18/19 Elevated Blood Sugar Requesting physician: BRIE STEVENS - History of Present Illness 33 y/o male admitted with elevated blood sugar and altered mental state. Past History Past Medical History: diabetes, hypertension Medications and Allergies Allergies Allergy/AdvReac Type Severity Reaction Status Date / Time No Known Allergies Allergy Unverified 03/29/14 14:49 Home Medications Medication Instructions Recorded Confirmed Last Taken Type Insulin Aspart [NovoLOG Flexpen] 7 unit SQ TIDWM 03/29/14 02/18/19 02/12/19 History Lisinopril 20 mg PO DAILY 04/01/14 02/18/19 08/30/14 History Insulin Detemir [Levemir Flextouch] 30 units SQ QHS 09/20/14 02/18/19 02/12/19 History 30units Active Meds: Active Medications Acetaminophen (Tylenol) 650 mg PO Q4H PRN PRN Reason: Pain MILD(1-3)/Fever >100.5/SNOW Dextrose (D50w (25gm) Syringe) 0 ml IV PRN PRN PRN Reason: Hypoglycemia Famotidine (Pepcid) 20 mg IV BID EMILIANO Last Admin: 02/18/19 09:51 Dose: 20 mg Documented by: Heparin Sodium (Porcine) (Heparin) 5,000 unit SUB-Q Q12HR EMILIANO Last Admin: 02/18/19 09:51 Dose: 5,000 unit Documented by: Hydromorphone HCl (Dilaudid) 0.5 mg IV Q3H PRN PRN Reason: Pain , Severe (7-10) Insulin Human Regular 100 (units/ Sodium Chloride) 100 mls @ 1 mls/hr IV TITR EMILIANO; Protocol Last Titration: 02/18/19 10:41 Dose: 0 units/hr, 0 mls/hr Documented by: Vancomycin HCl (Vancomycin/Ns 1 Gm/250 Ml) 1 gm in 250 mls @ 167.007 mls/hr IV Q24HR EMILIANO Ceftriaxone Sodium (Rocephin/Ns 1 Gm/50 Ml) 1 gm in 50 mls @ 100 mls/hr IV Q24HR EMILIANO Last Admin: 02/18/19 09:51 Dose: 100 mls/hr Documented by: Dextrose (D5w) 1,000 mls @ 125 mls/hr IV DIRECT EMILIANO Last Admin: 02/18/19 10:20 Dose: 125 mls/hr Documented by: Insulin Glargine (Lantus) 30 units SUB-Q QAMDIAB EMILIANO Insulin Human Lispro (Humalog) 0 unit SUB-Q ACHS EMILIANO; Protocol Ondansetron HCl (Zofran) 4 mg IV Q8H PRN PRN Reason: Nausea And Vomiting Sodium Chloride (Sodium Chloride Flush Syringe 10 Ml) 10 ml IV BID [facility] Last Admin: 02/18/19 09:52 Dose: 10 ml Documented by: Sodium Chloride (Sodium Chloride Flush Syringe 10 Ml) 10 ml IV PRN PRN PRN Reason: LINE FLUSH Review of Systems All systems: negative Exam - Constitutional Vitals: Temp Pulse Resp BP Pulse Ox 96.9 F L 100 H 11 L 134/89 100 02/18/19 08:00 02/18/19 11:00 02/18/19 11:00 02/18/19 11:00 02/18/19 11:00 General appearance: Present: no acute distress, other (asleep) - Respiratory Respiratory effort: normal Respiratory: bilateral: CTA - Cardiovascular Rhythm: regular Heart Sounds: Present: S1 & S2 - Extremities Extremities: no ischemia, pulses intact - Abdominal General gastrointestinal: Present: soft, non-tender Male genitourinary: Present: deferred - Rectal Rectal Exam: deferred - Musculoskeletal Musculoskeletal: strength equal bilaterally Results - Labs CBC & Chem 7: 02/17/19 12:37 02/18/19 07:53 Labs: Abnormal lab results 02/17/19 02/17/19 02/17/19 Range/Units 12:17 12:37 12:37 WBC 21.5 H (4.5-11.0) K/mm3 Hct 48.7 H (35.5-45.6) % MCV 122 H (84-94) fl MCHC 25 L (32-34) % RDW 17.4 H (13.2-15.2) % Haskell # 1.5 H (0.0-0.8) K/mm3 Baso # 0.2 H (0.0-0.1) K/mm3 Seg Neutrophils % 84.8 H (40.0-70.0) % Seg Neuts % (Manual) 84.0 H (40.0-70.0) % Lymphocytes % (Manual) 7.0 L (13.4-35.0) % Seg Neutrophils # 18.8 H (1.8-7.7) K/mm3 Seg Neutrophils # Man 18.1 H (1.8-7.7) K/mm3 Monocytes # (Manual) 1.1 H (0.0-0.8) K/mm3 Basophils # (Manual) 0.2 H (0.0-0.1) K/mm3 INR 1.17 H (0.87-1.13) POC ABG pH (7.35-7.45) POC ABG pO2 (80-105) VBG pH (7.320-7.420) Sodium (137-145) mmol/L Potassium (3.6-5.0) mmol/L Chloride (98-107) mmol/L Carbon Dioxide (22-30) mmol/L BUN (9-20) mg/dL Creatinine (0.8-1.5) mg/dL Glucose (75-100) mg/dL POC Glucose > 500 H (70-105) Hemoglobin A1c (4-6) % Lactic Acid (0.7-2.0) mmol/L Calcium (8.4-10.2) mg/dL Phosphorus (2.5-4.5) mg/dL Magnesium (1.7-2.3) mg/dL Alkaline Phosphatase (35-129) units/L Lactate Dehydrogenase (91-180) units/L NT-Pro-B Natriuret Pep (0-450) pg/mL Total Protein (6.3-8.2) g/dL Albumin (3.9-5) g/dL Urine WBC (Auto) (0.0-6.0) /HPF Urine Creatinine (0.1-20.0) mg/dL 02/17/19 02/17/19 02/17/19 Range/Units 12:37 12:37 12:37 WBC (4.5-11.0) K/mm3 Hct (35.5-45.6) % MCV (84-94) fl MCHC (32-34) % RDW (13.2-15.2) % Haskell # (0.0-0.8) K/mm3 Baso # (0.0-0.1) K/mm3 Seg Neutrophils % (40.0-70.0) % Seg Neuts % (Manual) (40.0-70.0) % Lymphocytes % (Manual) (13.4-35.0) % Seg Neutrophils # (1.8-7.7) K/mm3 Seg Neutrophils # Man (1.8-7.7) K/mm3 Monocytes # (Manual) (0.0-0.8) K/mm3 Basophils # (Manual) (0.0-0.1) K/mm3 INR (0.87-1.13) POC ABG pH (7.35-7.45) POC ABG pO2 (80-105) VBG pH 7.137 L* (7.320-7.420) Sodium (137-145) mmol/L Potassium (3.6-5.0) mmol/L Chloride (98-107) mmol/L Carbon Dioxide (22-30) mmol/L BUN (9-20) mg/dL Creatinine (0.8-1.5) mg/dL Glucose (75-100) mg/dL POC Glucose (70-105) Hemoglobin A1c (4-6) % Lactic Acid 3.50 H* (0.7-2.0) mmol/L Calcium (8.4-10.2) mg/dL Phosphorus (2.5-4.5) mg/dL Magnesium (1.7-2.3) mg/dL Alkaline Phosphatase (35-129) units/L Lactate Dehydrogenase 236 H (91-180) units/L NT-Pro-B Natriuret Pep (0-450) pg/mL Total Protein (6.3-8.2) g/dL Albumin (3.9-5) g/dL Urine WBC (Auto) (0.0-6.0) /HPF Urine Creatinine (0.1-20.0) mg/dL 02/17/19 02/17/19 02/17/19 Range/Units 12:37 12:53 13:06 WBC (4.5-11.0) K/mm3 Hct (35.5-45.6) % MCV (84-94) fl MCHC (32-34) % RDW (13.2-15.2) % Haskell # (0.0-0.8) K/mm3 Baso # (0.0-0.1) K/mm3 Seg Neutrophils % (40.0-70.0) % Seg Neuts % (Manual) (40.0-70.0) % Lymphocytes % (Manual) (13.4-35.0) % Seg Neutrophils # (1.8-7.7) K/mm3 Seg Neutrophils # Man (1.8-7.7) K/mm3 Monocytes # (Manual) (0.0-0.8) K/mm3 Basophils # (Manual) (0.0-0.1) K/mm3 INR (0.87-1.13) POC ABG pH 7.073 L (7.35-7.45) POC ABG pO2 123 H (80-105) VBG pH (7.320-7.420) Sodium 118 L* (137-145) mmol/L Potassium 9.5 H* (3.6-5.0) mmol/L Chloride 71.4 L (98-107) mmol/L Carbon Dioxide 5 L* (22-30) mmol/L BUN 84 H (9-20) mg/dL Creatinine 3.4 H (0.8-1.5) mg/dL Glucose 2068 H* (75-100) mg/dL POC Glucose (70-105) Hemoglobin A1c (4-6) % Lactic Acid (0.7-2.0) mmol/L Calcium 8.1 L (8.4-10.2) mg/dL Phosphorus 12.10 H (2.5-4.5) mg/dL Magnesium 3.70 H (1.7-2.3) mg/dL Alkaline Phosphatase 158 H (35-129) units/L Lactate Dehydrogenase (91-180) units/L NT-Pro-B Natriuret Pep 597.9 H (0-450) pg/mL Total Protein 6.2 L (6.3-8.2) g/dL Albumin 3.8 L (3.9-5) g/dL Urine WBC (Auto) (0.0-6.0) /HPF Urine Creatinine (0.1-20.0) mg/dL 02/17/19 02/17/19 02/17/19 Range/Units 13:59 14:28 16:24 WBC (4.5-11.0) K/mm3 Hct (35.5-45.6) % MCV (84-94) fl MCHC (32-34) % RDW (13.2-15.2) % Haskell # (0.0-0.8) K/mm3 Baso # (0.0-0.1) K/mm3 Seg Neutrophils % (40.0-70.0) % Seg Neuts % (Manual) (40.0-70.0) % Lymphocytes % (Manual) (13.4-35.0) % Seg Neutrophils # (1.8-7.7) K/mm3 Seg Neutrophils # Man (1.8-7.7) K/mm3 Monocytes # (Manual) (0.0-0.8) K/mm3 Basophils # (Manual) (0.0-0.1) K/mm3 INR (0.87-1.13) POC ABG pH (7.35-7.45) POC ABG pO2 (80-105) VBG pH (7.320-7.420) Sodium 129 L D (137-145) mmol/L Potassium 6.7 H* D (3.6-5.0) mmol/L Chloride 83.1 L (98-107) mmol/L Carbon Dioxide 10 L (22-30) mmol/L BUN 81 H (9-20) mg/dL Creatinine 3.1 H (0.8-1.5) mg/dL Glucose 1726 H* (75-100) mg/dL POC Glucose (70-105) Hemoglobin A1c 10.5 H (4-6) % Lactic Acid 2.60 H* (0.7-2.0) mmol/L Calcium (8.4-10.2) mg/dL Phosphorus (2.5-4.5) mg/dL Magnesium (1.7-2.3) mg/dL Alkaline Phosphatase (35-129) units/L Lactate Dehydrogenase (91-180) units/L NT-Pro-B Natriuret Pep (0-450) pg/mL Total Protein (6.3-8.2) g/dL Albumin (3.9-5) g/dL Urine WBC (Auto) (0.0-6.0) /HPF Urine Creatinine (0.1-20.0) mg/dL 02/17/19 02/17/19 02/17/19 Range/Units 16:27 16:27 17:01 WBC (4.5-11.0) K/mm3 Hct (35.5-45.6) % MCV (84-94) fl MCHC (32-34) % RDW (13.2-15.2) % Haskell # (0.0-0.8) K/mm3 Baso # (0.0-0.1) K/mm3 Seg Neutrophils % (40.0-70.0) % Seg Neuts % (Manual) (40.0-70.0) % Lymphocytes % (Manual) (13.4-35.0) % Seg Neutrophils # (1.8-7.7) K/mm3 Seg Neutrophils # Man (1.8-7.7) K/mm3 Monocytes # (Manual) (0.0-0.8) K/mm3 Basophils # (Manual) (0.0-0.1) K/mm3 INR (0.87-1.13) POC ABG pH (7.35-7.45) POC ABG pO2 (80-105) VBG pH (7.320-7.420) Sodium (137-145) mmol/L Potassium 5.5 H (3.6-5.0) mmol/L Chloride 93.0 L (98-107) mmol/L Carbon Dioxide 13 L (22-30) mmol/L BUN 81 H (9-20) mg/dL Creatinine 2.7 H (0.8-1.5) mg/dL Glucose 1325 H* 1321 H* (75-100) mg/dL POC Glucose (70-105) Hemoglobin A1c (4-6) % Lactic Acid (0.7-2.0) mmol/L Calcium (8.4-10.2) mg/dL Phosphorus 6.20 H D (2.5-4.5) mg/dL Magnesium 3.80 H (1.7-2.3) mg/dL Alkaline Phosphatase (35-129) units/L Lactate Dehydrogenase (91-180) units/L NT-Pro-B Natriuret Pep (0-450) pg/mL Total Protein (6.3-8.2) g/dL Albumin (3.9-5) g/dL Urine WBC (Auto) (0.0-6.0) /HPF Urine Creatinine (0.1-20.0) mg/dL 02/17/19 02/17/19 02/17/19 Range/Units 17:57 20:35 20:50 WBC (4.5-11.0) K/mm3 Hct (35.5-45.6) % MCV (84-94) fl MCHC (32-34) % RDW (13.2-15.2) % Haskell # (0.0-0.8) K/mm3 Baso # (0.0-0.1) K/mm3 Seg Neutrophils % (40.0-70.0) % Seg Neuts % (Manual) (40.0-70.0) % Lymphocytes % (Manual) (13.4-35.0) % Seg Neutrophils # (1.8-7.7) K/mm3 Seg Neutrophils # Man (1.8-7.7) K/mm3 Monocytes # (Manual) (0.0-0.8) K/mm3 Basophils # (Manual) (0.0-0.1) K/mm3 INR (0.87-1.13) POC ABG pH (7.35-7.45) POC ABG pO2 (80-105) VBG pH (7.320-7.420) Sodium 146 H D 152 H (137-145) mmol/L Potassium 5.1 H (3.6-5.0) mmol/L Chloride 109.9 H (98-107) mmol/L Carbon Dioxide 17 L (22-30) mmol/L BUN 71 H 68 H (9-20) mg/dL Creatinine 2.5 H 2.2 H (0.8-1.5) mg/dL Glucose 1043 H* 591 H* (75-100) mg/dL POC Glucose > 500 H (70-105) Hemoglobin A1c (4-6) % Lactic Acid (0.7-2.0) mmol/L Calcium (8.4-10.2) mg/dL Phosphorus (2.5-4.5) mg/dL Magnesium (1.7-2.3) mg/dL Alkaline Phosphatase (35-129) units/L Lactate Dehydrogenase (91-180) units/L NT-Pro-B Natriuret Pep (0-450) pg/mL Total Protein (6.3-8.2) g/dL Albumin (3.9-5) g/dL Urine WBC (Auto) (0.0-6.0) /HPF Urine Creatinine (0.1-20.0) mg/dL 02/17/19 02/17/19 02/17/19 Range/Units 22:40 22:40 22:42 WBC (4.5-11.0) K/mm3 Hct (35.5-45.6) % MCV (84-94) fl MCHC (32-34) % RDW (13.2-15.2) % Haskell # (0.0-0.8) K/mm3 Baso # (0.0-0.1) K/mm3 Seg Neutrophils % (40.0-70.0) % Seg Neuts % (Manual) (40.0-70.0) % Lymphocytes % (Manual) (13.4-35.0) % Seg Neutrophils # (1.8-7.7) K/mm3 Seg Neutrophils # Man (1.8-7.7) K/mm3 Monocytes # (Manual) (0.0-0.8) K/mm3 Basophils # (Manual) (0.0-0.1) K/mm3 INR (0.87-1.13) POC ABG pH (7.35-7.45) POC ABG pO2 (80-105) VBG pH (7.320-7.420) Sodium 157 H (137-145) mmol/L Potassium (3.6-5.0) mmol/L Chloride 115.2 H (98-107) mmol/L Carbon Dioxide (22-30) mmol/L BUN 68 H (9-20) mg/dL Creatinine 2.1 H (0.8-1.5) mg/dL Glucose 362 H (75-100) mg/dL POC Glucose (70-105) Hemoglobin A1c (4-6) % Lactic Acid (0.7-2.0) mmol/L Calcium (8.4-10.2) mg/dL Phosphorus (2.5-4.5) mg/dL Magnesium (1.7-2.3) mg/dL Alkaline Phosphatase (35-129) units/L Lactate Dehydrogenase (91-180) units/L NT-Pro-B Natriuret Pep (0-450) pg/mL Total Protein (6.3-8.2) g/dL Albumin (3.9-5) g/dL Urine WBC (Auto) 43.0 H (0.0-6.0) /HPF Urine Creatinine 210.5 H (0.1-20.0) mg/dL 02/17/19 02/18/19 02/18/19 Range/Units 23:21 00:06 00:22 WBC (4.5-11.0) K/mm3 Hct (35.5-45.6) % MCV (84-94) fl MCHC (32-34) % RDW (13.2-15.2) % Haskell # (0.0-0.8) K/mm3 Baso # (0.0-0.1) K/mm3 Seg Neutrophils % (40.0-70.0) % Seg Neuts % (Manual) (40.0-70.0) % Lymphocytes % (Manual) (13.4-35.0) % Seg Neutrophils # (1.8-7.7) K/mm3 Seg Neutrophils # Man (1.8-7.7) K/mm3 Monocytes # (Manual) (0.0-0.8) K/mm3 Basophils # (Manual) (0.0-0.1) K/mm3 INR (0.87-1.13) POC ABG pH (7.35-7.45) POC ABG pO2 (80-105) VBG pH (7.320-7.420) Sodium (137-145) mmol/L Potassium (3.6-5.0) mmol/L Chloride (98-107) mmol/L Carbon Dioxide (22-30) mmol/L BUN (9-20) mg/dL Creatinine (0.8-1.5) mg/dL Glucose 231 H (75-100) mg/dL POC Glucose 295 H 240 H (70-105) Hemoglobin A1c (4-6) % Lactic Acid (0.7-2.0) mmol/L Calcium (8.4-10.2) mg/dL Phosphorus (2.5-4.5) mg/dL Magnesium (1.7-2.3) mg/dL Alkaline Phosphatase (35-129) units/L Lactate Dehydrogenase (91-180) units/L NT-Pro-B Natriuret Pep (0-450) pg/mL Total Protein (6.3-8.2) g/dL Albumin (3.9-5) g/dL Urine WBC (Auto) (0.0-6.0) /HPF Urine Creatinine (0.1-20.0) mg/dL 02/18/19 02/18/19 02/18/19 Range/Units 01:22 02:08 03:11 WBC (4.5-11.0) K/mm3 Hct (35.5-45.6) % MCV (84-94) fl MCHC (32-34) % RDW (13.2-15.2) % Haskell # (0.0-0.8) K/mm3 Baso # (0.0-0.1) K/mm3 Seg Neutrophils % (40.0-70.0) % Seg Neuts % (Manual) (40.0-70.0) % Lymphocytes % (Manual) (13.4-35.0) % Seg Neutrophils # (1.8-7.7) K/mm3 Seg Neutrophils # Man (1.8-7.7) K/mm3 Monocytes # (Manual) (0.0-0.8) K/mm3 Basophils # (Manual) (0.0-0.1) K/mm3 INR (0.87-1.13) POC ABG pH (7.35-7.45) POC ABG pO2 (80-105) VBG pH (7.320-7.420) Sodium (137-145) mmol/L Potassium (3.6-5.0) mmol/L Chloride (98-107) mmol/L Carbon Dioxide (22-30) mmol/L BUN (9-20) mg/dL Creatinine (0.8-1.5) mg/dL Glucose (75-100) mg/dL POC Glucose 187 H 182 H 168 H (70-105) Hemoglobin A1c (4-6) % Lactic Acid (0.7-2.0) mmol/L Calcium (8.4-10.2) mg/dL Phosphorus (2.5-4.5) mg/dL Magnesium (1.7-2.3) mg/dL Alkaline Phosphatase (35-129) units/L Lactate Dehydrogenase (91-180) units/L NT-Pro-B Natriuret Pep (0-450) pg/mL Total Protein (6.3-8.2) g/dL Albumin (3.9-5) g/dL Urine WBC (Auto) (0.0-6.0) /HPF Urine Creatinine (0.1-20.0) mg/dL 02/18/19 02/18/19 02/18/19 Range/Units 04:10 05:27 06:07 WBC (4.5-11.0) K/mm3 Hct (35.5-45.6) % MCV (84-94) fl MCHC (32-34) % RDW (13.2-15.2) % Haskell # (0.0-0.8) K/mm3 Baso # (0.0-0.1) K/mm3 Seg Neutrophils % (40.0-70.0) % Seg Neuts % (Manual) (40.0-70.0) % Lymphocytes % (Manual) (13.4-35.0) % Seg Neutrophils # (1.8-7.7) K/mm3 Seg Neutrophils # Man (1.8-7.7) K/mm3 Monocytes # (Manual) (0.0-0.8) K/mm3 Basophils # (Manual) (0.0-0.1) K/mm3 INR (0.87-1.13) POC ABG pH (7.35-7.45) POC ABG pO2 (80-105) VBG pH (7.320-7.420) Sodium 158 H (137-145) mmol/L Potassium 6.9 H* D (3.6-5.0) mmol/L Chloride 117.9 H (98-107) mmol/L Carbon Dioxide (22-30) mmol/L BUN 59 H (9-20) mg/dL Creatinine (0.8-1.5) mg/dL Glucose 164 H (75-100) mg/dL POC Glucose 192 H 208 H (70-105) Hemoglobin A1c (4-6) % Lactic Acid (0.7-2.0) mmol/L Calcium (8.4-10.2) mg/dL Phosphorus (2.5-4.5) mg/dL Magnesium (1.7-2.3) mg/dL Alkaline Phosphatase (35-129) units/L Lactate Dehydrogenase (91-180) units/L NT-Pro-B Natriuret Pep (0-450) pg/mL Total Protein (6.3-8.2) g/dL Albumin (3.9-5) g/dL Urine WBC (Auto) (0.0-6.0) /HPF Urine Creatinine (0.1-20.0) mg/dL 02/18/19 02/18/19 02/18/19 Range/Units 07:53 08:00 09:36 WBC (4.5-11.0) K/mm3 Hct (35.5-45.6) % MCV (84-94) fl MCHC (32-34) % RDW (13.2-15.2) % Haskell # (0.0-0.8) K/mm3 Baso # (0.0-0.1) K/mm3 Seg Neutrophils % (40.0-70.0) % Seg Neuts % (Manual) (40.0-70.0) % Lymphocytes % (Manual) (13.4-35.0) % Seg Neutrophils # (1.8-7.7) K/mm3 Seg Neutrophils # Man (1.8-7.7) K/mm3 Monocytes # (Manual) (0.0-0.8) K/mm3 Basophils # (Manual) (0.0-0.1) K/mm3 INR (0.87-1.13) POC ABG pH (7.35-7.45) POC ABG pO2 (80-105) VBG pH (7.320-7.420) Sodium 160 H (137-145) mmol/L Potassium (3.6-5.0) mmol/L Chloride 118.4 H (98-107) mmol/L Carbon Dioxide (22-30) mmol/L BUN 52 H (9-20) mg/dL Creatinine (0.8-1.5) mg/dL Glucose 144 H (75-100) mg/dL POC Glucose 152 H 135 H (70-105) Hemoglobin A1c (4-6) % Lactic Acid (0.7-2.0) mmol/L Calcium (8.4-10.2) mg/dL Phosphorus (2.5-4.5) mg/dL Magnesium (1.7-2.3) mg/dL Alkaline Phosphatase (35-129) units/L Lactate Dehydrogenase (91-180) units/L NT-Pro-B Natriuret Pep (0-450) pg/mL Total Protein (6.3-8.2) g/dL Albumin (3.9-5) g/dL Urine WBC (Auto) (0.0-6.0) /HPF Urine Creatinine (0.1-20.0) mg/dL 02/18/19 Range/Units 10:42 WBC (4.5-11.0) K/mm3 Hct (35.5-45.6) % MCV (84-94) fl MCHC (32-34) % RDW (13.2-15.2) % Haskell # (0.0-0.8) K/mm3 Baso # (0.0-0.1) K/mm3 Seg Neutrophils % (40.0-70.0) % Seg Neuts % (Manual) (40.0-70.0) % Lymphocytes % (Manual) (13.4-35.0) % Seg Neutrophils # (1.8-7.7) K/mm3 Seg Neutrophils # Man (1.8-7.7) K/mm3 Monocytes # (Manual) (0.0-0.8) K/mm3 Basophils # (Manual) (0.0-0.1) K/mm3 INR (0.87-1.13) POC ABG pH (7.35-7.45) POC ABG pO2 (80-105) VBG pH (7.320-7.420) Sodium (137-145) mmol/L Potassium (3.6-5.0) mmol/L Chloride (98-107) mmol/L Carbon Dioxide (22-30) mmol/L BUN (9-20) mg/dL Creatinine (0.8-1.5) mg/dL Glucose (75-100) mg/dL POC Glucose 117 H (70-105) Hemoglobin A1c (4-6) % Lactic Acid (0.7-2.0) mmol/L Calcium (8.4-10.2) mg/dL Phosphorus (2.5-4.5) mg/dL Magnesium (1.7-2.3) mg/dL Alkaline Phosphatase (35-129) units/L Lactate Dehydrogenase (91-180) units/L NT-Pro-B Natriuret Pep (0-450) pg/mL Total Protein (6.3-8.2) g/dL Albumin (3.9-5) g/dL Urine WBC (Auto) (0.0-6.0) /HPF Urine Creatinine (0.1-20.0) mg/dL - Imaging and Cardiology Chest x-ray: image reviewed (clear) Assessment and Plan 33 y/o male admitted with elevated blood sugar, altered mental state and dirty UA 1. Can stop insulin drip and start long acting insulin 2. Accucheck with meals and prior to bed 3. CC diet 4. Agree with IVF's but patient is eating as well 5. Agree with Rocephin for UTI Clinically stable for transfer out of unit, suggest frequent chemistries to evaluate Na levels.
[2019-02-18] MEDS: HumaLOG SUB-Q SCH ×3 (11:46→22:14)
[2019-02-18] MEDS: LANTUS SUB-Q SCH (11:47)
[2019-02-18 13:58] LABS: BUN/Creatinine Ratio 40; Blood Urea Nitrogen 44 mg/dL (9-20); Calcium 8.4 mg/dL (8.4-10.2); Hemolysis Index 29
--- NOTE | 2019-02-18 14:33 | Consultation ---
History of Present Illness Consult date: 02/18/19 Consult reason: other (abnormal ECG) History of present illness: The patient is a 43-year-old man with insulin-dependent diabetes since age 25, and history of schizophrenia currently on [place] [facility] [place] During his course, for unclear reasons he was off insulin for about 4 or 5 days. He was subsequently brought to the emergency room in acute diabetic ketoacidosis. On presentation, his blood sugar was 2068, sodium was 118, potassium was 9.5. An EKG was sinus tachycardia with hyperacute T waves and a widened QRS consistent with hyperkalemia. The patient is clinically much improved following standard therapy for his uncontrolled diabetes and electrolyte abnormalities. His potassium has been corrected to 4.1. Cardiology consultation was requested for the abnormal EKG. The patient has no cardiac symptoms, no chest pain, no shortness of breath, no palpitations, no lower extremity edema. There is no prior cardiac history. An ECG has not been repeated following the correction of the hyperkalemia. Past History Past Medical History: diabetes, hypertension Medications and Allergies Allergies Allergy/AdvReac Type Severity Reaction Status Date / Time No Known Allergies Allergy Unverified 03/29/14 14:49 Home Medications Medication Instructions Recorded Confirmed Last Taken Type Insulin Aspart [NovoLOG Flexpen] 7 unit SQ TIDWM 03/29/14 02/18/19 02/12/19 History Lisinopril 20 mg PO DAILY 04/01/14 02/18/19 08/30/14 History Insulin Detemir [Levemir Flextouch] 30 units SQ QHS 09/20/14 02/18/19 02/12/19 History 30units Active Meds: Active Medications Acetaminophen (Tylenol) 650 mg PO Q4H PRN PRN Reason: Pain MILD(1-3)/Fever >100.5/SNOW Dextrose (D50w (25gm) Syringe) 0 ml IV PRN PRN PRN Reason: Hypoglycemia Famotidine (Pepcid) 20 mg IV BID [facility] Last Admin: 02/18/19 09:51 Dose: 20 mg Documented by: Heparin Sodium (Porcine) (Heparin) 5,000 unit SUB-Q Q12HR [facility] Last Admin: 02/18/19 09:51 Dose: 5,000 unit Documented by: Hydromorphone HCl (Dilaudid) 0.5 mg IV Q3H PRN PRN Reason: Pain , Severe (7-10) Vancomycin HCl (Vancomycin/Ns 1 Gm/250 Ml) 1 gm in 250 mls @ 167.007 mls/hr IV Q24HR [facility] Last Admin: 02/18/19 11:18 Dose: 167.007 mls/hr Documented by: Ceftriaxone Sodium (Rocephin/Ns 1 Gm/50 Ml) 1 gm in 50 mls @ 100 mls/hr IV Q24HR [facility] Last Admin: 02/18/19 09:51 Dose: 100 mls/hr Documented by: Insulin Glargine (Lantus) 30 units SUB-Q [facility] Last Admin: 02/18/19 11:47 Dose: 30 units Documented by: Insulin Human Lispro (Humalog) [facility] Protocol Last Admin: 02/18/19 11:46 Dose: Not Given Documented by: Ondansetron HCl (Zofran) 4 mg IV Q8H PRN PRN Reason: Nausea And Vomiting Sodium Chloride (Sodium Chloride Flush Syringe 10 Ml) 10 ml IV BID [facility] Last Admin: 02/18/19 09:52 Dose: 10 ml Documented by: Sodium Chloride (Sodium Chloride Flush Syringe 10 Ml) 10 ml IV PRN PRN PRN Reason: LINE FLUSH Review of Systems Cardiovascular: no chest pain, no orthopnea, no palpitations, no rapid/irregular heart beat, no edema, no syncope, no lightheadedness, no shortness of breath Physical Examination Vital Signs Temp Pulse Resp BP Pulse Ox 98.0 F 108 H 18 85/37 100 02/17/19 12:06 02/17/19 12:06 02/17/19 12:06 02/17/19 12:06 02/17/19 12:06 General appearance: no acute distress HEENT: Positive: PERRL Neck: Positive: neck supple Cardiac: Positive: Reg Rate and Rhythm Lungs: Positive: Decreased Breath Sounds Neuro: Positive: Grossly Intact Abdomen: Positive: Soft Male genitourinary: Positive: deferred Skin: Positive: Clear Extremities: Absent: edema Results 02/19/19 07:38 02/19/19 07:38 Comprehensive Metabolic Panel 02/17/19 02/17/19 02/17/19 Range/Units 14:28 16:27 17:01 Sodium 129 L D 138 D (137-145) mmol/L Potassium 6.7 H* D 5.5 H (3.6-5.0) mmol/L Chloride 83.1 L 93.0 L (98-107) mmol/L Carbon Dioxide 10 L 13 L (22-30) mmol/L BUN 81 H 81 H (9-20) mg/dL Creatinine 3.1 H 2.7 H (0.8-1.5) mg/dL Glucose 1726 H* 1325 H* 1321 H* (75-100) mg/dL Calcium 8.8 9.2 (8.4-10.2) mg/dL 02/17/19 02/17/19 02/17/19 Range/Units 17:57 17:57 20:50 Sodium 146 H D TNR 152 H (137-145) mmol/L Potassium 5.1 H TNR 4.5 (3.6-5.0) mmol/L Chloride 98.9 TNR 109.9 H (98-107) mmol/L Carbon Dioxide 17 L TNR 24 D (22-30) mmol/L BUN 71 H TNR 68 H (9-20) mg/dL Creatinine 2.5 H TNR 2.2 H (0.8-1.5) mg/dL Glucose 1043 H* TNR 591 H* (75-100) mg/dL Calcium 9.4 TNR 9.3 (8.4-10.2) mg/dL 02/17/19 02/18/19 02/18/19 Range/Units 22:42 00:06 05:27 Sodium 157 H 158 H (137-145) mmol/L Potassium 4.4 6.9 H* D (3.6-5.0) mmol/L Chloride 115.2 H 117.9 H (98-107) mmol/L Carbon Dioxide 26 24 (22-30) mmol/L BUN 68 H 59 H (9-20) mg/dL Creatinine 2.1 H 1.4 (0.8-1.5) mg/dL Glucose 362 H 231 H 164 H (75-100) mg/dL Calcium 9.5 9.1 (8.4-10.2) mg/dL 02/18/19 02/18/19 Range/Units 07:53 13:25 Sodium 160 H 150 H D (137-145) mmol/L Potassium 4.3 D 4.5 (3.6-5.0) mmol/L Chloride 118.4 H 112.8 H (98-107) mmol/L Carbon Dioxide 28 19 L D (22-30) mmol/L BUN 52 H 44 H (9-20) mg/dL Creatinine 1.5 1.1 (0.8-1.5) mg/dL Glucose 144 H 177 H (75-100) mg/dL Calcium 9.0 8.4 (8.4-10.2) mg/dL EKG interpretations - Telemetry EKG Rhythm: Sinus Tachycardia (with hyperacute T waves in the setting of severe hyperkalemia) Assessment and Plan - Patient Problems (1) DKA (diabetic ketoacidosis) Current Visit: Yes Status: Acute Qualifiers: Diabetes mellitus type: type 1 Diabetes mellitus complication detail: with coma Qualified Code(s): E10.11 - Type 1 diabetes mellitus with ketoacidosis with coma Plan to address problem: Abnormal EKG findings consistent with acute hyperkalemia on presentation. We'll order a repeat ECG for a baseline study in the normokalemic state. An echocardiogram will be done for left ventricular function and valvular function assessment. Otherwise, no additional cardiac workup is indicated.
[2019-02-18 18:40] LABS: BUN/Creatinine Ratio 32; Blood Urea Nitrogen 38 mg/dL (9-20); Calcium 8.6 mg/dL (8.4-10.2); Hemolysis Index 6
[2019-02-18] MEDS ORDERED: LANTUS SUB-Q SCH (22:00)
--- NOTE | 2019-02-19 06:49 | Progress Note ---
Assessment and Plan 1. Acute kidney injury: Vasomotor LASHAWN in the setting of volume depletion and hypotension. Renal US was negative for hydro. Renal function is improving. Monitor renal function. Avoid nephrotoxic agents. Meds dosage based on GFR. 2. FEN: Hyperkalemia, potassium level has improved. Hypernatremia, encouraged PO fluids. Metabolic acidosis, improved. Monitor lytes. 3. DKA: Improved. Was on Insulin drip. Monitor. 4. Schizophrenia. Subjective Date of service: 02/19/19 Interval history: Patient was seen and examined at the bedside. Doing better. Objective - Vital Signs Vital signs: Vital Signs - 12hr 02/18/19 02/19/19 22:04 04:26 Temperature 98.2 F 98.2 F Pulse Rate 93 H 93 H Respiratory 20 20 Rate Blood Pressure 109/72 119/79 O2 Sat by Pulse 99 99 Oximetry - General Appearance General appearance: well-developed, well-nourished, appears stated age, other (no distress) EENT: ATNC, PERRL, hearing intact, vision intact Neck: supple Respiratory: Present: Clear to Ascultation Cardiology: regular, S1S2, no murmurs Gastrointestinal: normoactive bowel sounds, no tenderness, no distended Integumentary: no rash, warm and dry Neurologic: no focal deficit, no asterixis Musculoskeletal: other (no edema) - Lab 02/19/19 07:38 02/19/19 07:38 Most recent lab results Calcium 8.6 mg/dL (8.4-10.2) 02/18/19 18:08 Phosphorus 3.30 mg/dL (2.5-4.5) D 02/18/19 05:28 Magnesium 3.80 mg/dL (1.7-2.3) H 02/17/19 16:27 210.5 mg/dL (0.1-20.0) H 02/17/19 22:40 13 mmol/L 02/17/19 22:40 Medications & Allergies - Medications Allergies/Adverse Reactions: Allergies No Known Allergies Allergy (Unverified 03/29/14 14:49) Home Medications: Home Medications Medication Instructions Recorded Confirmed Last Taken Type Insulin Aspart [NovoLOG Flexpen] 7 unit SQ TIDWM 03/29/14 02/18/19 02/12/19 History Lisinopril 20 mg PO DAILY 04/01/14 02/18/19 08/30/14 History Insulin Detemir [Levemir Flextouch] 30 units SQ QHS 09/20/14 02/18/19 02/12/19 History 30units Active Medications: Generic Name Dose Route Start Last Admin Trade Name Freq PRN Reason Stop Dose Admin Acetaminophen 650 mg 02/17/19 16:12 Tylenol PO Q4H PRN Pain MILD(1-3)/Fever >100.5/SNOW Dextrose 0 ml 02/17/19 16:14 D50w (25gm) Syringe IV PRN PRN Hypoglycemia Famotidine 20 mg 02/18/19 10:00 02/18/19 22:14 Pepcid IV 20 mg BID EMILIANO Administration Heparin Sodium (Porcine) 5,000 unit 02/18/19 10:00 02/18/19 22:14 Heparin SUB-Q 5,000 unit Q12HR EMILIANO Administration Hydromorphone HCl 0.5 mg 02/17/19 16:12 Dilaudid IV Q3H PRN Pain , Severe (7-10) Vancomycin HCl 1 gm in 250 mls @ 167.007 mls/hr 02/18/19 10:00 02/18/19 11:18 Vancomycin/Ns 1 Gm/250 Ml IV 167.007 mls/hr Q24HR EMILIANO Administration Ceftriaxone Sodium 1 gm in 50 mls @ 100 mls/hr 02/18/19 10:00 02/18/19 09:51 Rocephin/Ns 1 Gm/50 Ml IV 100 mls/hr Q24HR EMILIANO Administration Insulin Glargine 30 units 02/18/19 11:00 02/18/19 11:47 Lantus SUB-Q 30 units QAMDIAB EMILIANO Administration Insulin Human Lispro 0 unit 02/18/19 11:30 02/18/19 22:14 Humalog SUB-Q 8 unit ACHS EMILIANO Administration Protocol Ondansetron HCl 4 mg 02/17/19 16:12 Zofran IV Q8H PRN Nausea And Vomiting Sodium Chloride 10 ml 02/17/19 22:00 02/18/19 22:15 Sodium Chloride Flush Syringe 10 Ml IV 10 ml BID EMILIANO Administration Sodium Chloride 10 ml 02/17/19 16:12 Sodium Chloride Flush Syringe 10 Ml IV PRN PRN LINE FLUSH
[2019-02-19] MEDS: HumaLOG SUB-Q SCH ×4 (07:30→22:28)
[2019-02-19] MEDS: LANTUS SUB-Q SCH (08:00)
[2019-02-19 08:13] LABS: Hematocrit 40.3 % (35.5-45.6); Hemoglobin 13.4 gm/dl (11.8-15.2); Mean Corpuscular HGB Conc 33 % (32-34); Mean Corpuscular Volume 92 fl (84-94); Platelet Count 228 K/mm3 (140-440)
[2019-02-19 08:30] LABS: BUN/Creatinine Ratio 29; Blood Urea Nitrogen 26 mg/dL (9-20); Calcium 8.8 mg/dL (8.4-10.2); Hemolysis Index 7
--- NOTE | 2019-02-19 09:48 | Progress Note ---
Assessment and Plan 33 y/o male admitted with elevated blood sugar, altered mental state and dirty UA 1. Stable from a critical care and pulmonary standpoint. Will sign off. Call if questions or concerns. Subjective Date of service: 02/19/19 Interval history: No acute events. Successful transfer out of unit. Objective - Constitutional Vitals: Vital Signs - 12hr 02/18/19 02/19/19 22:04 04:26 Temperature 98.2 F 98.2 F Pulse Rate 93 H 93 H Respiratory 20 20 Rate Blood Pressure 109/72 119/79 O2 Sat by Pulse 99 99 Oximetry - Labs CBC & Chem 7: 02/19/19 07:38 02/19/19 07:38 Labs: Abnormal lab results 02/18/19 02/18/19 02/18/19 Range/Units 10:42 11:41 13:25 WBC (4.5-11.0) K/mm3 RDW (13.2-15.2) % Sodium 150 H D (137-145) mmol/L Chloride 112.8 H (98-107) mmol/L Carbon Dioxide 19 L D (22-30) mmol/L BUN 44 H (9-20) mg/dL Glucose 177 H (75-100) mg/dL POC Glucose 117 H 148 H (70-105) Phosphorus (2.5-4.5) mg/dL 02/18/19 02/18/19 02/18/19 Range/Units 16:29 18:08 21:35 WBC (4.5-11.0) K/mm3 RDW (13.2-15.2) % Sodium 150 H (137-145) mmol/L Chloride 109.6 H (98-107) mmol/L Carbon Dioxide (22-30) mmol/L BUN 38 H (9-20) mg/dL Glucose 333 H (75-100) mg/dL POC Glucose 196 H 337 H (70-105) Phosphorus (2.5-4.5) mg/dL 02/19/19 02/19/19 02/19/19 Range/Units 02:30 07:38 07:38 WBC 13.2 H (4.5-11.0) K/mm3 RDW 16.0 H (13.2-15.2) % Sodium 150 H (137-145) mmol/L Chloride 109.9 H (98-107) mmol/L Carbon Dioxide 31 H D (22-30) mmol/L BUN 26 H (9-20) mg/dL Glucose (75-100) mg/dL POC Glucose 164 H (70-105) Phosphorus 2.20 L D (2.5-4.5) mg/dL Medications & Allergies - Medications Allergies/Adverse Reactions: Allergies No Known Allergies Allergy (Unverified 03/29/14 14:49) Home Medications: Home Medications Medication Instructions Recorded Confirmed Last Taken Type Insulin Aspart [NovoLOG Flexpen] 7 unit SQ TIDWM 03/29/14 02/18/19 02/12/19 History Lisinopril 20 mg PO DAILY 04/01/14 02/18/19 08/30/14 History Insulin Detemir [Levemir Flextouch] 30 units SQ QHS 09/20/14 02/18/19 02/12/19 History 30units Active Medications: Generic Name Dose Route Start Last Admin Trade Name Freq PRN Reason Stop Dose Admin Acetaminophen 650 mg 02/17/19 16:12 Tylenol PO Q4H PRN Pain MILD(1-3)/Fever >100.5/SNOW Dextrose 0 ml 02/17/19 16:14 D50w (25gm) Syringe IV PRN PRN Hypoglycemia Famotidine 20 mg 02/18/19 10:00 02/18/19 22:14 Pepcid IV 20 mg BID EMILIANO Administration Heparin Sodium (Porcine) 5,000 unit 02/18/19 10:00 02/18/19 22:14 Heparin SUB-Q 5,000 unit Q12HR EMILIANO Administration Hydromorphone HCl 0.5 mg 02/17/19 16:12 Dilaudid IV Q3H PRN Pain , Severe (7-10) Ceftriaxone Sodium 1 gm in 50 mls @ 100 mls/hr 02/18/19 10:00 02/18/19 09:51 Rocephin/Ns 1 Gm/50 Ml IV 100 mls/hr Q24HR EMILIANO Administration Insulin Glargine 30 units 02/18/19 11:00 02/18/19 11:47 Lantus SUB-Q 30 units QAMDIAB EMILIANO Administration Insulin Human Lispro 0 unit 02/18/19 11:30 02/19/19 07:30 Humalog SUB-Q Not Given ACHS [facility] Protocol Ondansetron HCl 4 mg 02/17/19 16:12 Zofran IV Q8H PRN Nausea And Vomiting Sodium Chloride 10 ml 02/17/19 16:12 Sodium Chloride Flush Syringe 10 Ml IV PRN PRN LINE FLUSH
--- NOTE | 2019-02-19 10:48 | Progress Note ---
Assessment and Plan Assessment and plan: Patient is a 33 year old AAM from [facility] with history of Type 1 Diabetes who presented to ED with nausea and persistent vomiting. He became severely confused and Lethargic. Patient has IDDM and HTN. Patient admitted to [facility] for partial treatment program. Noncompliant with Insulin. He was admitted to the ICU on Insulin drip for DKA/HONK DKA most likely due to noncompliance as patient reports that he has been out of his Lantus and Humulin for about 7 days. Counseling provided to the patient. Hypernatremia/Hyponatremia Discussed with Neprhologist, will adjust fluids. started D5W IV drip AMS due to Acute metabolic encephalopahty, poa Resolved Hyperkalemia Patient given Kayexalate calcium gluconate and sodium bicarbonate and that D50 W and IV insulin Recheck K today Acute kidney injury Secondary to ATN and severe dehydration IV fluids for now Nephrology consult requested SIRS without organ dysfunction blood culture contaminated most likely No sepsis. WBC likely secondary to demargination stopped iv vancomycin and Rocephin, monitor cbc closely blood cultures, urine cultures and pCXR are negative for infection Metabolic acidosis-ANION GAP Severe--treated with IV bicarbonate HTN (hypertension) Cont antihypertensives Uncontrolled DM As noted above. Continue current treatment. Will obtain home meds and update medications list. Counselling provided Gastro enteritis Secondary to DKA DVT prophylaxis On Heparin and GI prophylaxis Disposition: continue inpatient care, once sodium level improves will discharge History Interval history: Patient was seen and examined. Follow-up on current diagnosis of AMS and N/V. No overnight events reported to me. Patient denies any chest pain, shortness breath, nausea/vomiting or severe headaches. Imaging, nursing note, chart, labs and old chart reviewed. Discussed with patient. He denies SI/HI. Hospitalist Physical - Physical exam Narrative exam: Gen: WDWN, NAD, Awake, Alert, Orientated x 3 HEENT: NCAT, EOMI, PERRL, OP Clear Neck: supple, no adenopathy, no thyromegaly, no JVD CVS/Heart: RRR, normal S1S2, pulses present bilaterally Chest/Lungs: CTA B, Symmetrical chest expansion, good air entry bilaterally GI/Abdomen: soft, NTND, good bowel sounds, no guarding or rebound /Bladder: no suprapubic tenderness, no CVA or paraspinal tenderness Extermity/Skin: no c/c/e, no obvious rash MSK: FROM x 4 Neuro: CN 2-12 grossly intact, no new focal deficits Psych: calm - Constitutional Vitals: Temp Pulse Resp BP Pulse Ox 98.2 F 93 H 20 119/79 99 02/19/19 04:26 02/19/19 04:26 02/19/19 04:26 02/19/19 04:26 02/19/19 04:26 General appearance: Present: no acute distress Results - Labs CBC & Chem 7: 02/19/19 07:38 02/19/19 07:38 Labs: Laboratory Last Values WBC 13.2 K/mm3 (4.5-11.0) H 02/19/19 07:38 RBC 4.40 M/mm3 (3.65-5.03) 02/19/19 07:38 Hgb 13.4 gm/dl (11.8-15.2) 02/19/19 07:38 Hct 40.3 % (35.5-45.6) D 02/19/19 07:38 MCV 92 fl (84-94) 02/19/19 07:38 MCH 31 pg (28-32) 02/19/19 07:38 MCHC 33 % (32-34) 02/19/19 07:38 RDW 16.0 % (13.2-15.2) H 02/19/19 07:38 Plt Count 228 K/mm3 (140-440) 02/19/19 07:38 [place] % (Auto) 7.0 % (0.0-7.3) 02/17/19 12:37 Eos % (Auto) 0.1 % (0.0-4.3) 02/17/19 12:37 [place] # 1.5 K/mm3 (0.0-0.8) H 02/17/19 12:37 Eos # 0.0 K/mm3 (0.0-0.4) 02/17/19 12:37 Baso # 0.2 K/mm3 (0.0-0.1) H 02/17/19 12:37 Add Manual Diff Complete 02/17/19 12:37 Total Counted 100 02/17/19 12:37 Seg Neutrophils % 84.8 % (40.0-70.0) H 02/17/19 12:37 Seg Neuts % (Manual) 84.0 % (40.0-70.0) H 02/17/19 12:37 0 % 02/17/19 12:37 7.0 % (13.4-35.0) L 02/17/19 12:37 Reactive Lymphs % (Man) 0 % 02/17/19 12:37 5.0 % (0.0-7.3) 02/17/19 12:37 0 % (0.0-4.3) 02/17/19 12:37 1.0 % (0.0-1.8) 02/17/19 12:37 3.0 % 02/17/19 12:37 0 % 02/17/19 12:37 0 % 02/17/19 12:37 0 % 02/17/19 12:37 Nucleated RBC % Not Reportable 02/17/19 12:37 Seg Neutrophils # 18.8 K/mm3 (1.8-7.7) H 02/17/19 12:37 Seg Neutrophils # Man 18.1 K/mm3 (1.8-7.7) H 02/17/19 12:37 Band Neutrophils # 0.0 K/mm3 02/17/19 12:37 1.5 K/mm3 (1.2-5.4) 02/17/19 12:37 Abs React Lymphs (Man) 0.0 K/mm3 02/17/19 12:37 1.1 K/mm3 (0.0-0.8) H 02/17/19 12:37 0.0 K/mm3 (0.0-0.4) 02/17/19 12:37 0.2 K/mm3 (0.0-0.1) H 02/17/19 12:37 0.6 K/mm3 02/17/19 12:37 0.0 K/mm3 02/17/19 12:37 0.0 K/mm3 02/17/19 12:37 Blast Cells # 0.0 K/mm3 02/17/19 12:37 WBC Morphology Not Reportable 02/17/19 12:37 Hypersegmented Neuts Not Reportable 02/17/19 12:37 Hyposegmented Neuts Not Reportable 02/17/19 12:37 Hypogranular Neuts Not Reportable 02/17/19 12:37 Not Reportable 02/17/19 12:37 Not Reportable 02/17/19 12:37 Not Reportable 02/17/19 12:37 Not Reportable 02/17/19 12:37 Not Reportable 02/17/19 12:37 Not Reportable 02/17/19 12:37 Consistent w auto 02/17/19 12:37 Not Reportable 02/17/19 12:37 Plt Clumps, EDTA Not Reportable 02/17/19 12:37 Not Reportable 02/17/19 12:37 Not Reportable 02/17/19 12:37 Not Reportable 02/17/19 12:37 Plt Morphology Comment Not Reportable 02/17/19 12:37 RBC Morphology Normal 02/17/19 12:37 Dimorphic RBCs Not Reportable 02/17/19 12:37 Few 02/17/19 12:37 Not Reportable 02/17/19 12:37 Not Reportable 02/17/19 12:37 Not Reportable 02/17/19 12:37 Not Reportable 02/17/19 12:37 Not Reportable 02/17/19 12:37 Not Reportable 02/17/19 12:37 Not Reportable 02/17/19 12:37 Not Reportable 02/17/19 12:37 Not Reportable 02/17/19 12:37 Not Reportable 02/17/19 12:37 Not Reportable 02/17/19 12:37 Not Reportable 02/17/19 12:37 Not Reportable 02/17/19 12:37 Not Reportable 02/17/19 12:37 Not Reportable 02/17/19 12:37 Not Reportable 02/17/19 12:37 Not Reportable 02/17/19 12:37 Not Reportable 02/17/19 12:37 Acanthocytes (Spur) Not Reportable 02/17/19 12:37 Rouleaux Not Reportable 02/17/19 12:37 Not Reportable 02/17/19 12:37 Not Reportable 02/17/19 12:37 Not Reportable 02/17/19 12:37 Not Reportable 02/17/19 12:37 Hem Pathologist Commnt No 02/17/19 12:37 PT 14.6 Sec. (12.2-14.9) 02/17/19 12:37 INR 1.17 (0.87-1.13) H 02/17/19 12:37 APTT 29.5 Sec. (24.2-36.6) 02/17/19 12:37 POC ABG pH 7.073 (7.35-7.45) L 02/17/19 13:06 POC ABG pO2 123 (80-105) H 02/17/19 13:06 POC ABG HCO3 7.0 (22-26 mml/L) 02/17/19 13:06 POC ABG Total CO2 8 (23-27mmol/L) 02/17/19 13:06 POC ABG O2 Sat 97 02/17/19 13:06 POC ABG Base Excess -23 ((-2) - (+3)mmol/L) 02/17/19 13:06 VBG pH 7.137 (7.320-7.420) L* 02/17/19 12:37 21 % 02/17/19 13:06 Sodium 150 mmol/L (137-145) H 02/19/19 07:38 Potassium 3.9 mmol/L (3.6-5.0) 02/19/19 07:38 Chloride 109.9 mmol/L (98-107) H 02/19/19 07:38 Carbon Dioxide 31 mmol/L (22-30) H D 02/19/19 07:38 13 mmol/L 02/19/19 07:38 BUN 26 mg/dL (9-20) H 02/19/19 07:38 0.9 mg/dL (0.8-1.5) 02/19/19 07:38 Estimated GFR > 60 ml/min 02/19/19 07:38 29 % 02/19/19 07:38 Glucose 94 mg/dL (75-100) 02/19/19 07:38 POC Glucose 94 (70-105) 02/19/19 08:17 10.5 % (4-6) H 02/17/19 16:24 Lactic Acid 2.60 mmol/L (0.7-2.0) H* 02/17/19 13:59 Calcium 8.8 mg/dL (8.4-10.2) 02/19/19 07:38 Phosphorus 2.20 mg/dL (2.5-4.5) L D 02/19/19 07:38 Magnesium 3.80 mg/dL (1.7-2.3) H 02/17/19 16:27 0.50 mg/dL (0.1-1.2) 02/17/19 12:53 < 0.2 mg/dL (0-0.2) 02/17/19 12:53 0.3 mg/dL 02/17/19 12:53 AST 20 units/L (5-40) 02/17/19 12:53 ALT 21 units/L (7-56) 02/17/19 12:53 158 units/L (35-129) H 02/17/19 12:53 236 units/L (91-180) H 02/17/19 12:37 118 units/L (55-170) 02/17/19 12:37 CK-MB (CK-2) 3.9 ng/mL (0.0-4.0) 02/17/19 12:37 CK-MB (CK-2) Rel Index 3.3 (0-4) 02/17/19 12:37 < 0.010 ng/mL (0.00-0.029) 02/17/19 12:37 NT-Pro-B Natriuret Pep 597.9 pg/mL (0-450) H 02/17/19 12:37 6.2 g/dL (6.3-8.2) L 02/17/19 12:53 3.8 g/dL (3.9-5) L 02/17/19 12:53 1.6 % 02/17/19 12:53 16 units/L (13-60) 02/17/19 12:53 Yellow (Yellow) 02/17/19 22:40 Cloudy (Clear) 02/17/19 22:40 5.0 (5.0-7.0) 02/17/19 22:40 Ur Specific [place] 1.024 (1.003-1.030) 02/17/19 22:40 30 mg/dl mg/dL (Negative) 02/17/19 22:40 >=500 mg/dL (Negative) 02/17/19 22:40 Tr mg/dL (Negative) 02/17/19 22:40 Sm (Negative) 02/17/19 22:40 Neg (Negative) 02/17/19 22:40 Neg (Negative) 02/17/19 22:40 < 2.0 mg/dL (<2.0) 02/17/19 22:40 Ur Leukocyte Esterase Lg (Negative) 02/17/19 22:40 43.0 /HPF (0.0-6.0) H 02/17/19 22:40 7.0 /HPF (0.0-6.0) 02/17/19 22:40 U Epithel Cells (Auto) < 1.0 /HPF (0-13.0) 02/17/19 13:13 Granular Casts 14 /LPF 02/17/19 22:40 2+ /HPF 02/17/19 22:40 210.5 mg/dL (0.1-20.0) H 02/17/19 22:40 13 mmol/L 02/17/19 22:40 Presumptive negative 02/17/19 13:13 Presumptive negative 02/17/19 13:13 Ur Barbiturates Screen Presumptive negative 02/17/19 13:13 Ur Phencyclidine Scrn Presumptive negative 02/17/19 13:13 Ur Amphetamines Screen Presumptive negative 02/17/19 13:13 U Benzodiazepines Scrn Presumptive negative 02/17/19 13:13 Presumptive negative 02/17/19 13:13 U Marijuana (THC) Screen Presumptive negative 02/17/19 13:13 Disclamer 02/17/19 13:13 Active Medications - Current Medications Current Medications: Generic Name Dose Route Start Last Admin Trade Name Freq PRN Reason Stop Dose Admin Acetaminophen 650 mg 02/17/19 16:12 Tylenol PO Q4H PRN Pain MILD(1-3)/Fever >100.5/SNOW Dextrose 0 ml 02/17/19 16:14 D50w (25gm) Syringe IV PRN PRN Hypoglycemia Famotidine 20 mg 02/18/19 10:00 02/18/19 22:14 Pepcid IV 20 mg BID EMILIANO Administration Heparin Sodium (Porcine) 5,000 unit 02/18/19 10:00 02/18/19 22:14 Heparin SUB-Q 5,000 unit Q12HR EMILIANO Administration Hydromorphone HCl 0.5 mg 02/17/19 16:12 Dilaudid IV Q3H PRN Pain , Severe (7-10) Ceftriaxone Sodium 1 gm in 50 mls @ 100 mls/hr 02/18/19 10:00 02/18/19 09:51 Rocephin/Ns 1 Gm/50 Ml IV 100 mls/hr Q24HR EMILIANO Administration Dextrose 1,000 mls @ 100 mls/hr 02/19/19 11:00 D5w IV DIRECT EMILIANO Insulin Glargine 30 units 02/18/19 11:00 02/18/19 11:47 Lantus SUB-Q 30 units QAMDIAB EMILIANO Administration Insulin Human Lispro 0 unit 02/18/19 11:30 02/19/19 07:30 Humalog SUB-Q Not Given ACHS [facility] Protocol Ondansetron HCl 4 mg 02/17/19 16:12 Zofran IV Q8H PRN Nausea And Vomiting Sodium Chloride 10 ml 02/17/19 16:12 Sodium Chloride Flush Syringe 10 Ml IV PRN PRN LINE FLUSH Nutrition/Malnutrition Assess - Dietary Evaluation Nutrition/Malnutrition Findings: Nutrition Notes Start: 02/18/19 11:18 Freq: Status: Active Protocol: Document 02/18/19 11:18 LM (Rec: 02/18/19 11:22 LM [id number]) Nutrition Notes Initial or Follow up Brief Note Current Diagnosis Diabetes,Sepsis,Hypertension Other Pertinent Diagnosis DKA Current Diet Consistent CHO Subjective/Other Information Pt unresponsive at time of visit. Nutrition Intervention Follow-Up By: 02/19/19 Additional Comments F/U for DKA, DM education, MST
[2019-02-19] MEDS: HEPARIN SUB-Q SCH ×2 (10:55→22:28)
[2019-02-19] MEDS: PEPCID IV SCH ×2 (10:57→22:28)
[2019-02-19] MEDS: ROCEPHIN/NS 1 GM/50 ML 1 GM/50 ML BAG IV SCH (10:59)
[2019-02-19] MEDS: D5W 1,000 ML IV SCH ×2 (11:03→20:23)
--- NOTE | 2019-02-19 11:37 | Progress Note ---
Assessment and Plan Acute diabetic ketoacidosis Diabetes Schizophrenia sent from [facility] Hyperkalemia -resolved Acute kidney injury -resolved An EKG was sinus tachycardia with hyperacute T waves and a widened QRS consistent with hyperkalemia. Plan: Repeat ECG following the correction of the hyperkalemia. We will obtain an echocardiogram for LVEF assessment. Subjective Date of service: 02/19/19 Interval history: Patient is resting in bed comfortably. He denies chest pain, shortness of breath and palpitations. Objective Vital Signs Temp Pulse Pulse Resp BP Pulse Ox 02/19/19 04:26 98.2 F 93 H 20 119/79 99 02/18/19 22:04 98.2 F 93 H 20 109/72 99 02/18/19 16:40 97.8 F 74 14 127/94 100 02/18/19 13:54 97.6 F 95 H 16 128/85 100 02/18/19 13:11 100 H 10 L 112/74 99 02/18/19 13:01 101 H 21 112/74 90 02/18/19 12:37 97.7 F 98 H 16 112/74 100 02/18/19 12:00 101 H 13 113/75 99 - Physical Examination General: No Apparent Distress HEENT: Positive: PERRL Neck: Positive: neck supple Cardiac: Positive: Reg Rate and Rhythm Lungs: Positive: Decreased Breath Sounds Neuro: Positive: Grossly Intact Abdomen: Positive: Soft Extremities: Absent: edema - Labs and Meds CBC 02/19/19 Range/Units 07:38 WBC 13.2 H (4.5-11.0) K/mm3 RBC 4.40 (3.65-5.03) M/mm3 Hgb 13.4 (11.8-15.2) gm/dl Hct 40.3 D (35.5-45.6) % Plt Count 228 (140-440) K/mm3 Comprehensive Metabolic Panel 02/18/19 02/18/19 02/19/19 Range/Units 13:25 18:08 07:38 Sodium 150 H D 150 H 150 H (137-145) mmol/L Potassium 4.5 4.1 3.9 (3.6-5.0) mmol/L Chloride 112.8 H 109.6 H 109.9 H (98-107) mmol/L Carbon Dioxide 19 L D 24 31 H D (22-30) mmol/L BUN 44 H 38 H 26 H (9-20) mg/dL Creatinine 1.1 1.2 0.9 (0.8-1.5) mg/dL Glucose 177 H 333 H 94 (75-100) mg/dL Calcium 8.4 8.6 8.8 (8.4-10.2) mg/dL
--- NOTE | 2019-02-19 14:13 | Consultation ---
History of Present Illness - Reason for Consult Consult date: 02/19/19 Reason for consult: Mental Health Evaluation Requesting physician: BRIE STEVENS - Chief Complaint Chief complaint: "I feel much better" - History of Present Psychiatric Illness 33 year old AA male insulin-dependent diabetic who presented to the ER for vomiting. The patient's BG was 1700 plus on admission. Psychiatry was consulted for medication mgmt. Today the patient was calm and cooperative during the assessment. He stated that he had not had his insulin for several days prior to his hospital visit. The patient stated that he received his insulin while inpatient at [facility], but didn't receive his insulin in the partial hospitalization program. He was asked about his mental health, he stated that he receive the monthly Invega injection for a mood/psychotic do. The patient was vague about his mental health dx when asked. He denies SI/HI's and AVH's. He denies erratic sleep and a poor appetite. He denies recreational drug use and alcohol consumption (etoh). He denies any side effects from the Invega injection he received last week. Medications and Allergies Allergies Allergy/AdvReac Type Severity Reaction Status Date / Time No Known Allergies Allergy Unverified 03/29/14 14:49 Home Medications Medication Instructions Recorded Confirmed Last Taken Type Insulin Aspart [NovoLOG Flexpen] 7 unit SQ TIDWM 03/29/14 02/18/19 02/12/19 History Lisinopril 20 mg PO DAILY 04/01/14 02/18/19 08/30/14 History Insulin Detemir [Levemir Flextouch] 30 units SQ QHS 09/20/14 02/18/19 02/12/19 History 30units Active Meds: Active Medications Acetaminophen (Tylenol) 650 mg PO Q4H PRN PRN Reason: Pain MILD(1-3)/Fever >100.5/SNOW Dextrose (D50w (25gm) Syringe) 0 ml IV PRN PRN PRN Reason: Hypoglycemia Famotidine (Pepcid) 20 mg IV BID [facility] Last Admin: 02/19/19 10:57 Dose: 20 mg Documented by: Heparin Sodium (Porcine) (Heparin) 5,000 unit SUB-Q Q12HR [facility] Last Admin: 02/19/19 10:55 Dose: 5,000 unit Documented by: Hydromorphone HCl (Dilaudid) 0.5 mg IV Q3H PRN PRN Reason: Pain , Severe (7-10) Dextrose (D5w) 1,000 mls @ 100 mls/hr IV DIRECT EMILIANO Last Admin: 02/19/19 11:03 Dose: 100 mls/hr Documented by: Insulin Glargine (Lantus) 30 units SUB-Q QAMDIAB EMILIANO Last Admin: 02/19/19 08:00 Dose: 30 units Documented by: Insulin Human Lispro (Humalog) 0 unit SUB-Q ACHS EMILIANO; Protocol Last Admin: 02/19/19 11:30 Dose: 3 unit Documented by: Ondansetron HCl (Zofran) 4 mg IV Q8H PRN PRN Reason: Nausea And Vomiting Sodium Chloride (Sodium Chloride Flush Syringe 10 Ml) 10 ml IV PRN PRN PRN Reason: LINE FLUSH Past psychiatric history - Past Medical History Past Medical History: diabetes Past Surgical History: No surgical history - past Psychiatric treatment and history psychiatric treatment history: Inpatient psy setting in the past. Denies a fam psy hx. - Social History Social history: other (Homeless) Mental Status Exam - Vital signs Last Vital Signs Temp 98.2 F 02/19/19 04:26 Pulse 93 H 02/19/19 04:26 Resp 20 02/19/19 04:26 BP 119/79 02/19/19 04:26 Pulse Ox 99 02/19/19 04:26 - Exam Narrative exam: MSE: Appearance: calm, cooperative Behavior: regular eye contact Speech: regular rate and tone Mood: "okay" Affect: congruent to mood Thought Process: circumstantial Thought Content: denies SI/HI's and AVH's Motor Activity: sitting up in bed Cognition: A/O x3 Insight: fair Judgment: fair Results Result Diagrams: 02/19/19 07:38 02/19/19 07:38 Abnormal lab results 02/18/19 02/18/19 02/18/19 Range/Units 16:29 18:08 21:35 WBC (4.5-11.0) K/mm3 RDW (13.2-15.2) % Sodium 150 H (137-145) mmol/L Chloride 109.6 H (98-107) mmol/L Carbon Dioxide (22-30) mmol/L BUN 38 H (9-20) mg/dL Glucose 333 H (75-100) mg/dL POC Glucose 196 H 337 H (70-105) Phosphorus (2.5-4.5) mg/dL 02/19/19 02/19/19 02/19/19 Range/Units 02:30 07:38 07:38 WBC 13.2 H (4.5-11.0) K/mm3 RDW 16.0 H (13.2-15.2) % Sodium 150 H (137-145) mmol/L Chloride 109.9 H (98-107) mmol/L Carbon Dioxide 31 H D (22-30) mmol/L BUN 26 H (9-20) mg/dL Glucose (75-100) mg/dL POC Glucose 164 H (70-105) Phosphorus 2.20 L D (2.5-4.5) mg/dL 02/19/19 Range/Units 11:26 WBC (4.5-11.0) K/mm3 RDW (13.2-15.2) % Sodium (137-145) mmol/L Chloride (98-107) mmol/L Carbon Dioxide (22-30) mmol/L BUN (9-20) mg/dL Glucose (75-100) mg/dL POC Glucose 220 H (70-105) Phosphorus (2.5-4.5) mg/dL All other labs normal. 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 No overt psychosis with the patient. Today the patient was calm and cooperative during the assessment. Recommendation/Plan: The patient receive the monthly Invega injection. Discussed possible metabolic side effects of Invega with the patient, he verbalized understanding. Discussed with the patient the importance to check his BG and admin the proper dose of insulin when indicated, he verbalized understanding. Lipid Panel ordered in the AM. Dispo: The patient can follow up with [facility] for outpatient services when discharged. Will staff with Dr Cristina Dawkins.
[2019-02-20] MEDS: D5W 1,000 ML IV SCH (06:24)
[2019-02-20 06:39] VITALS: BP 127/68
--- NOTE | 2019-02-20 07:29 | Progress Note ---
Subjective - Reason for Consult Consult date: 02/20/19 Reason for consult: Psychiatric Follow-up Evaluation - Chief Complaint Chief complaint: Unable to Assess Patient is a 33 year old AA male insulin-dependent diabetic who presented to the ER for vomiting. The patient's BG was 1700 plus on admission. Psychiatry was consulted for medication mgmt. Today the patient is not in room. Patient has eloped. Staff made aware, assigned RN and floor supervisor notified. Mental Status Exam - Vital signs Last Vital Signs Temp 98.4 F 02/20/19 05:31 Pulse 85 02/20/19 05:31 Resp 16 02/20/19 05:31 BP 127/68 02/20/19 05:31 Pulse Ox 99 02/20/19 05:31 - Exam Narrative exam: Provider unable to assess patient. Patient is not in room. Assessment and Plan Impression: Hx of Mood/Psychotic DO. No overt psychosis with the patient. Provider unable to assess-patient is not in room . Recommendation/Plan: The patient receive the monthly Invega injection. Discussed possible metabolic side effects of Invega with the patient, he verbalized understanding. Discussed with the patient the importance to check his BG and admin the proper dose of insulin when indicated, he verbalized understanding. Lipid Panel ordered in the AM. Disposition: The patient can follow up with [facility] for outpatient services when discharged. Will staff with Dr. Cristina Dawkins.
[2019-02-20 07:51] LABS: BUN/Creatinine Ratio 19; Blood Urea Nitrogen 13 mg/dL (9-20); Calcium 8.5 mg/dL (8.4-10.2); Hemolysis Index 10
[2019-02-20 07:53] LABS: Chol/HDL Ratio 1.81 %
--- NOTE | 2019-02-20 09:00 | Progress Note ---
Assessment and Plan Acute diabetic ketoacidosis Diabetes Schizophrenia sent from [place] psychiatric unit Hyperkalemia -resolved Acute kidney injury -resolved An EKG was sinus tachycardia with hyperacute T waves and a widened QRS consistent with hyperkalemia. Repeat EKG Echo shows normal LV function with EF 55%, moderate concentric LVH, trace MR, tr maricarmen AI, and mild TR Subjective Date of service: 02/20/19 Interval history: No acute events. resting comfortably. No chest pain or SOB. Objective Vital Signs Temp Pulse Resp BP BP Pulse Ox 02/20/19 05:31 98.4 F 85 16 127/68 99 02/19/19 23:35 97.5 F L 74 17 133/79 100 02/19/19 17:30 69/27 02/19/19 17:00 97.7 F 72 14 114/88 99 - Physical Examination General: No Apparent Distress HEENT: Positive: PERRL Neck: Positive: neck supple Neuro: Positive: Grossly Intact Abdomen: Positive: Soft Skin: Positive: Clear Extremities: Absent: edema - Labs and Meds Lipids 02/20/19 Range/Units 07:34 Triglycerides 91 (2-149) mg/dL Cholesterol 125 (50-199) mg/dL HDL Cholesterol 69 H (40-59) mg/dL Cholesterol/HDL Ratio 1.81 % Comprehensive Metabolic Panel 02/20/19 Range/Units 07:34 Sodium 139 D (137-145) mmol/L Potassium 4.2 (3.6-5.0) mmol/L Chloride 102.3 (98-107) mmol/L Carbon Dioxide 28 (22-30) mmol/L BUN 13 (9-20) mg/dL Creatinine 0.7 L (0.8-1.5) mg/dL Glucose 215 H (75-100) mg/dL Calcium 8.5 (8.4-10.2) mg/dL - Imaging and Cardiology EKG: report reviewed
[2019-02-20] MEDS: HEPARIN SUB-Q SCH (09:34)
[2019-02-20] MEDS: LANTUS SUB-Q SCH (09:34)
[2019-02-20] MEDS: HumaLOG SUB-Q SCH ×2 (09:34→12:25)
[2019-02-20] MEDS: PEPCID IV SCH (09:34)
--- NOTE | 2019-02-20 10:53 | Progress Note ---
Assessment and Plan 1. Acute kidney injury: Vasomotor LASHAWN in the setting of volume depletion and hypotension. Renal US was negative for hydro. Renal function improved. Monitor renal function. Avoid nephrotoxic agents. Meds dosage based on GFR. 2. FEN: Hyperkalemia, potassium level has improved. Hypernatremia, improved. Metabolic acidosis, improved. Monitor lytes. 3. DKA: Improved. Monitor. 4. Schizophrenia. Subjective Date of service: 02/20/19 Interval history: Patient was seen and examined at the bedside. Doing ok. Objective - Vital Signs Vital signs: Vital Signs - 12hr 02/19/19 02/20/19 23:35 05:31 Temperature 97.5 F L 98.4 F Pulse Rate 74 85 Respiratory 17 16 Rate Blood Pressure 133/79 127/68 O2 Sat by Pulse 100 99 Oximetry - General Appearance General appearance: well-developed, well-nourished, appears stated age, other (no distress) EENT: ATNC, PERRL, hearing intact, vision intact Neck: supple Respiratory: Present: Clear to Ascultation Cardiology: regular, S1S2, no murmurs Gastrointestinal: normoactive bowel sounds, no tenderness, no distended Integumentary: no rash, warm and dry Neurologic: no focal deficit, no asterixis, alert and oriented x3 Musculoskeletal: other (no edema) - Lab 02/19/19 07:38 02/20/19 07:34 Most recent lab results Calcium 8.5 mg/dL (8.4-10.2) 02/20/19 07:34 Phosphorus 2.60 mg/dL (2.5-4.5) 02/20/19 07:34 Magnesium 3.80 mg/dL (1.7-2.3) H 02/17/19 16:27 210.5 mg/dL (0.1-20.0) H 02/17/19 22:40 13 mmol/L 02/17/19 22:40 Medications & Allergies - Medications Allergies/Adverse Reactions: Allergies No Known Allergies Allergy (Unverified 03/29/14 14:49) Home Medications: Home Medications Medication Instructions Recorded Confirmed Last Taken Type Insulin Aspart [NovoLOG Flexpen] 7 unit SQ TIDWM 03/29/14 02/18/19 02/12/19 History Lisinopril 20 mg PO DAILY 04/01/14 02/18/19 08/30/14 History Insulin Detemir [Levemir Flextouch] 30 units SQ QHS 09/20/14 02/18/19 02/12/19 History 30units Active Medications: Generic Name Dose Route Start Last Admin Trade Name Freq PRN Reason Stop Dose Admin Acetaminophen 650 mg 02/17/19 16:12 Tylenol PO Q4H PRN Pain MILD(1-3)/Fever >100.5/SNOW Dextrose 0 ml 02/17/19 16:14 D50w (25gm) Syringe IV PRN PRN Hypoglycemia Famotidine 20 mg 02/18/19 10:00 02/20/19 09:34 Pepcid IV 20 mg BID EMILIANO Administration Heparin Sodium (Porcine) 5,000 unit 02/18/19 10:00 02/20/19 09:34 Heparin SUB-Q 5,000 unit Q12HR EMILIANO Administration Hydromorphone HCl 0.5 mg 02/17/19 16:12 Dilaudid IV Q3H PRN Pain , Severe (7-10) Insulin Glargine 30 units 02/18/19 11:00 02/20/19 09:34 Lantus SUB-Q 30 units QAMDIAB EMILIANO Administration Insulin Human Lispro 0 unit 02/18/19 11:30 02/20/19 09:34 Humalog SUB-Q 3 unit ACHS EMILIANO Administration Protocol Ondansetron HCl 4 mg 02/17/19 16:12 Zofran IV Q8H PRN Nausea And Vomiting Sodium Chloride 10 ml 02/17/19 16:12 02/19/19 22:29 Sodium Chloride Flush Syringe 10 Ml IV 10 ml PRN PRN Administration LINE FLUSH
--- NOTE | 2019-02-20 14:15 | Discharge Summary ---
Providers - Providers Date of Admission: 02/17/19 14:41 Date of discharge: 02/20/19 Attending physician: WILFRID TOLENTINO 02/17/19 12:45 Consult to Case Management [CONS] Routine Services Needed at Discharge: On Call Pharmacy Technician Notified:: cm 02/17/19 13:54 Consult to Physician [CONS] Stat Comment: Consulting Provider: PHILLIP BOWSER Physician Instructions: Reason For Exam: DKA, Renal Failure 02/17/19 13:55 Consult to Physician [CONS] Stat Comment: Consulting Provider: GEORGIA PALOMARES Physician Instructions: Reason For Exam: ABN EKG DKA HYPERK 02/17/19 16:12 Consult to Dietitian/Nutrition [CONS] Routine Physician Instructions: Reason For Exam: Reason for Consult: Diet education 02/18/19 07:44 Consult to Physician [CONS] Routine Comment: Consulting Provider: MARCELINO SANOFRD Physician Instructions: Reason For Exam: DKA 02/18/19 12:42 Consult to Mental Health [CONS] Routine Reason For Exam: DEPRESSION Place consult to:: MENTAL HEALTH Notified:: Phone number called:: [phone] Was contact made?: No Time called:: 14:37 Comment:: no answer [facility] Condition: Stable Hospital course: Patient is a 33 year old AAM from [facility] with history of Type 1 Diabetes who presented to ED with nausea and persistent vomiting. He became severely confused and Lethargic. Patient has IDDM and HTN. Patient admitted to [facility] for partial treatment program. Noncompliant with Insulin. He was admitted to the ICU on Insulin drip for DKA/HONK DKA most likely due to noncompliance as patient reports that he has been out of his Lantus and Humulin for about 7 days. Counseling provided to the patient. Hypernatremia/Hyponatremia Discussed with Neprhologist, will adjust fluids. started D5W IV drip AMS due to Acute metabolic encephalopahty, poa Resolved Hyperkalemia Patient given Kayexalate calcium gluconate and sodium bicarbonate and that D50 W and IV insulin Recheck K today Acute kidney injury Secondary to ATN and severe dehydration IV fluids for now Nephrology consult requested SIRS without organ dysfunction blood culture contaminated most likely No sepsis. WBC likely secondary to demargination stopped iv vancomycin and Rocephin, monitor cbc closely blood cultures, urine cultures and pCXR are negative for infection Metabolic acidosis-ANION GAP Severe--treated with IV bicarbonate HTN (hypertension) Cont antihypertensives Uncontrolled DM As noted above. Continue current treatment. Will obtain home meds and update medications list. Counselling provided Gastro enteritis Secondary to DKA DVT prophylaxis On Heparin and GI prophylaxis Disposition: home Patient left the floor prior to discharge order and instructions entered, he left with peripheral IV so Code Walker called. Looking for patient to take the IV out and give him Insulin scripts Disposition: DC- TO HOME OR SELFCARE Time spent for discharge: 35 minutes Core Measure Documentation - Palliative Care Palliative Care/ Comfort Measures: Not Applicable - Core Measures Any of the following diagnoses?: none - VTE Discharge Requirements Deep Vein Thrombosis/Pulmonary Embolism Present on Admission: No Has pt received <5 days of overlap therapy or INR<2.0: No Anticoagulant overlap therapy prescribed at discharge: No Contraindication No Overlap Therapy order at DC: Not Indicated Exam - Physical Exam Narrative exam: Gen: WDWN, NAD, Awake, Alert, Orientated x 3 HEENT: NCAT, EOMI, PERRL, OP Clear Neck: supple, no adenopathy, no thyromegaly, no JVD CVS/Heart: RRR, normal S1S2, pulses present bilaterally Chest/Lungs: CTA B, Symmetrical chest expansion, good air entry bilaterally GI/Abdomen: soft, NTND, good bowel sounds, no guarding or rebound /Bladder: no suprapubic tenderness, no CVA or paraspinal tenderness Extermity/Skin: no c/c/e, no obvious rash MSK: FROM x 4 Neuro: CN 2-12 grossly intact, no new focal deficits Psych: calm - Constitutional Vitals: Temp Pulse Resp BP Pulse Ox 98.4 F 85 16 127/68 99 02/20/19 05:31 02/20/19 05:31 02/20/19 05:31 02/20/19 05:31 02/20/19 05:31 Plan Activity: other (no strenous activities unless cleared by PCP) Diet: low salt Special Instructions: record daily BP diary, record blood sugar diary (three times a day and at bedtime) Follow up with: ALLISON ALFORD MD [Primary Care Provider] - 3-5 Days SATISH FAIR MD [Staff Physician] - 7 Days Prescriptions: Insulin Detemir [Levemir Flextouch] 30 units SQ QHS #1 insuln.pen Lispro Insulin [HumaLOG] 1 dose SUB-Q ACHS PRN #1000 units PRN Reason: Hyperglycemia Insulin Aspart [NovoLOG Flexpen] 7 unit SQ TIDWM #1 insuln.pen
[2019-02-20] MEDS ORDERED: PEPCID PO SCH (22:00)
== END 2019-02-20 15:25 | disposition home or self-care (01) | DRG 637 ==
LOC: ED 12:02 → CC1 14:41 → 3A 02-18 13:38
PROVIDERS: ADMIT Internal Medicine; ATTEND Internal Medicine
PROC: 4A033R1 Measurement of Arterial Saturation, Peripheral, Percutaneous Approach (ICD-10-PCS; principal; 2019-02-17)
DX: E10.11 Type 1 diabetes mellitus with ketoacidosis with coma (principal); G93.41 Metabolic encephalopathy; N17.0 Acute kidney failure with tubular necrosis; N39.0 Urinary tract infection, site not specified; E87.0 Hyperosmolality and hypernatremia; R65.10 Systemic inflammatory response syndrome (SIRS) of non-infectious origin without acute organ dysfunction; F20.9 Schizophrenia, unspecified; E87.5 Hyperkalemia; K52.9 Noninfective gastroenteritis and colitis, unspecified; E86.0 Dehydration; I10 Essential (primary) hypertension; Z82.49 Family history of ischemic heart disease and other diseases of the circulatory system; Z79.4 Long term (current) use of insulin; Z91.14 Patient's other noncompliance with medication regimen
CPT/HCPCS: 36415; 71045; 76775; 80048; 80061; 80076; 80307; 81001; 82140; 82550; 82553; 82570; 82803; 82805; 82947; 82962; 83036; 83615; 83690; 83735; 83880; 84100; 84300; 84484; 85007; 85025; 85027; 85610; 85730; 87040; 87086; 93005; 93010; 93306; 96361; 96365; 96375; 99292; G0378; J0696; J1644; J1815; J2185; J2310; J3370; J7030; J7050; J7070

== ENCOUNTER 2019-03-20 14:57 | Inpatient (IN) | payer MEDICARE ==
[2019-03-20] MEDS ORDERED: SODIUM CHLORIDE 0.9% 1000 ML 1,000 ML IV ONE ×2 (15:06→17:18)
--- NOTE | 2019-03-20 15:09 | Event Note ---
ED Screening Note Date of service: 03/20/19 Time: 15:04 ED Screening Note: 33 y o male with PMH of DM presents with hypergylcemia cc of vomitting, dry mouth no meds currently This initial assessment/diagnostic orders/clinical plan/treatment(s) is/are subject to change based on patients health status, clinical progression and re- assessment by fellow clinical providers in the ED. Further treatment and workup at subsequent clinical providers discretion. Patient/guardian urged not to elope from the ED as their condition may be serious if not clinically assessed and managed. Initial orders include: FG:>500 labs Main side eval
[2019-03-20 16:03] LABS: Basophils % (Auto) 0.3 % (0.0-1.8); Eosinophils % (Auto) 0.1 % (0.0-4.3); Lymphocytes # (Auto) 1.2 K/mm3 (1.2-5.4); Lymphocytes % (Auto) 11.4 % (13.4-35.0); Mean Corpuscular HGB Conc 30 % (32-34); Mean Corpuscular Volume 99 fl (84-94); Monocytes # (Auto) 0.6 K/mm3 (0.0-0.8); Monocytes % (Auto) 5.1 % (0.0-7.3); Platelet Count 235 K/mm3 (140-440); Red Blood Count 5.08 M/mm3 (3.65-5.03); Red Cell Distribution Width 15.7 % (13.2-15.2)
[2019-03-20 16:11] LABS: Hematocrit 50.2 % (35.5-45.6); Hemoglobin 15.2 gm/dl (11.8-15.2)
[2019-03-20 16:23] LABS: Alanine Aminotransferase 13 units/L (7-56); Albumin 4.5 g/dL (3.9-5); BUN/Creatinine Ratio 25; Blood Urea Nitrogen 30 mg/dL (9-20); Calcium 9.4 mg/dL (8.4-10.2); Hemolysis Index 31
[2019-03-20] MEDS ORDERED: DEXTROSE 50% IN WATER (25GM) 50 ML SYRINGE IV PRN ×2 (17:19→23:44)
[2019-03-20] MEDS ORDERED: METOCLOPRAMIDE 10 MG/2 ML INJ IV ONE (17:21)
--- NOTE | 2019-03-20 17:24 | Emergency Department Report ---
ED General Adult HPI - General Chief complaint: Hyperglycemia Stated complaint: DIZZINESS Time Seen by Provider: 03/20/19 15:03 Source: patient Mode of arrival: Ambulatory Limitations: No Limitations - History of Present Illness Initial comments: Patient is 33 years old male with history of type I, insulin-dependent diabetes. Patient brought from a psychiatric facility for evaluation of vomiting and elevated blood sugar. Patient found to have a blood sugar of 1387. Patient is alert, oriented 3 and in no acute distress. - Related Data Home Medications Medication Instructions Recorded Confirmed Last Taken Lisinopril 20 mg PO DAILY 04/01/14 02/18/19 08/30/14 Previous Rx's Medication Instructions Recorded Last Taken Type Acetaminophen [Acetaminophen TAB] 2 tab PO Q4H PRN #15 tablet 02/20/19 Unknown Rx Famotidine [Pepcid] 20 mg PO BID #15 tablet 02/20/19 Unknown Rx Insulin Aspart [NovoLOG Flexpen] 1 dose SQ AC PRN #1 pen 02/20/19 Unknown Rx Insulin Detemir [Levemir Flextouch] 30 units SQ QHS #1 insuln.pen 02/20/19 Unknown Rx Allergies Allergy/AdvReac Type Severity Reaction Status Date / Time No Known Allergies Allergy Unverified 03/29/14 14:49 ED Review of Systems ROS: Stated complaint: DIZZINESS Other details as noted in HPI Comment: All other systems reviewed and negative Constitutional: denies: chills, fever Respiratory: denies: cough, shortness of breath, SOB with exertion Cardiovascular: denies: chest pain, palpitations Gastrointestinal: nausea, vomiting. denies: abdominal pain, diarrhea, constipation, hematemesis, melena, hematochezia Musculoskeletal: denies: back pain ED Past Medical Hx - Past Medical History Previous Medical History?: Yes Hx Hypertension: Yes Hx Congestive Heart Failure: No Hx Diabetes: Yes (IDDM) Hx Sickle Cell Disease: No Hx Psychiatric Treatment: Yes Hx Asthma: No Hx COPD: No Hx HIV: No - Surgical History Past Surgical History?: Yes - Social History Smoking Status: Current Every Day Smoker Substance Use Type: None - Medications Home Medications: Home Medications Medication Instructions Recorded Confirmed Last Taken Type Lisinopril 20 mg PO DAILY 04/01/14 02/18/19 08/30/14 History Acetaminophen [Acetaminophen TAB] 2 tab PO Q4H PRN #15 tablet 02/20/19 Unknown Rx Famotidine [Pepcid] 20 mg PO BID #15 tablet 02/20/19 Unknown Rx Insulin Aspart [NovoLOG Flexpen] 1 dose SQ AC PRN #1 pen 02/20/19 Unknown Rx Insulin Detemir [Levemir Flextouch] 30 units SQ QHS #1 insuln.pen 02/20/19 Unknown Rx ED Physical Exam - General Limitations: No Limitations General appearance: alert, in no apparent distress - Head Head exam: Present: atraumatic, normocephalic, normal inspection - Eye Eye exam: Present: normal appearance, PERRL - ENT ENT exam: Present: mucous membranes dry - Neck Neck exam: Present: normal inspection, full ROM. Absent: tenderness, meningismus, lymphadenopathy, thyromegaly - Respiratory Respiratory exam: Present: normal lung sounds bilaterally - Cardiovascular Cardiovascular Exam: Present: regular rate, normal rhythm, normal heart sounds - GI/Abdominal GI/Abdominal exam: Present: soft, normal bowel sounds. Absent: distended, tenderness, guarding, rebound, rigid, organomegaly, mass, bruit, pulsatile mass, hernia - Extremities Exam Extremities exam: Present: normal inspection, full ROM, normal capillary refill. Absent: pedal edema, calf tenderness - Back Exam Back exam: Present: normal inspection, full ROM. Absent: CVA tenderness (R), CVA tenderness (L), muscle spasm, paraspinal tenderness, vertebral tenderness - Neurological Exam Neurological exam: Present: alert, oriented X3, CN II-XII intact, normal gait, reflexes normal - Skin Skin exam: Present: warm, dry, intact ED Course Vital Signs 03/20/19 15:05 Temperature 97.8 F Pulse Rate 109 H Respiratory 16 Rate Blood Pressure 110/65 [Left] O2 Sat by Pulse 99 Oximetry ED Medical Decision Making - Lab Data Result diagrams: 03/20/19 15:34 03/20/19 15:34 - Medical Decision Making Patient is 33 years old male with history of type I, insulin-dependent diabetes. Patient brought from a psychiatric facility for evaluation of vomiting and elevated blood sugar. Patient found to have a blood sugar of 1387. Patient is alert, oriented 3 and in no acute distress. Patient started on insulin drip, received 2 L of normal saline. I discussed the patient is Dr. Pickett, he agreed to admit the patient to intensive care unit for further management. Critical Care Time: Yes Critical care time in (mins) excluding proc time.: 30 Critical care attestation.: If time is entered above; I have spent that time in minutes in the direct care of this critically ill patient, excluding procedure time. ED Disposition Clinical Impression: DKA (diabetic ketoacidosis) Disposition: OP ADMIT IP TO THIS HOSP Is pt being admited?: Yes Condition: Stable Instructions: Diabetes Mellitus Type 2 in Adults (ED)
[2019-03-20] MEDS ORDERED: INSULIN REGULAR, HUMAN 100 UNITS in SODIUM CHLORIDE 0.9% 99 ML IV SCH ×2 (18:00→23:45)
[2019-03-20 18:09] LABS: BUN/Creatinine Ratio 22; Blood Urea Nitrogen 29 mg/dL (9-20); Calcium 9.8 mg/dL (8.4-10.2); Hemolysis Index 28
--- NOTE | 2019-03-20 18:25 | XRay Report ---
CHEST 1 VIEW INDICATION / CLINICAL INFORMATION: Diabetic ketoacidosis. COMPARISON: 02/17/2019 chest FINDINGS: SUPPORT DEVICES: None. HEART / MEDIASTINUM: No significant abnormality. LUNGS / PLEURA: No significant pulmonary or pleural abnormality. No pneumothorax. ADDITIONAL FINDINGS: No significant additional findings. IMPRESSION: 1. No acute findings. Signer Name: Mark Gallego MD Signed: 03/20/2019 6:21 PM Workstation Name: [id number]
[2019-03-20 19:21] LABS: Bilirubin,Urine NEG (Negative); Blood,Urine NEG (Negative); Color,Urine Straw (Yellow); Protein,Urine <15 mg/dL mg/dL (Negative); Urobilinogen,Urine < 2.0 mg/dL (<2.0); WBC,Urine < 1.0 /HPF (0.0-6.0)
[2019-03-20 19:30] LABS: Amphetamine Screen,Urine PRESUMPTIVE NEGATIVE; Benzodiazepines Screen,Urine PRESUMPTIVE NEGATIVE; Cannabinoid Screen,Urine PRESUMPTIVE NEGATIVE; Cocaine Screen,Urine PRESUMPTIVE NEGATIVE; Methadone Screen,Urine PRESUMPTIVE NEGATIVE; Opiate Screen,Urine PRESUMPTIVE NEGATIVE
[2019-03-20 20:30] LABS: BUN/Creatinine Ratio 22; Blood Urea Nitrogen 24 mg/dL (9-20); Calcium 9.4 mg/dL (8.4-10.2); Hemolysis Index 24
[2019-03-20 21:31] LABS: BUN/Creatinine Ratio 24; Blood Urea Nitrogen 24 mg/dL (9-20); Calcium 9.7 mg/dL (8.4-10.2); Hemolysis Index 112
[2019-03-20] MEDS ORDERED: ONDANSETRON 4 MG/2 ML INJ IV PRN (23:43)
[2019-03-20] MEDS ORDERED: METOCLOPRAMIDE 10 MG/2 ML INJ IV PRN (23:43)
[2019-03-20] MEDS ORDERED: HYDROmorphone 1 MG/1 ML INJ IV PRN (23:43)
[2019-03-20] MEDS ORDERED: ACETAMINOPHEN 325 MG TAB PO PRN (23:43)
[2019-03-20] MEDS ORDERED: POTASSIUM CHLORIDE 10 MEQ 10 MEQ/100 ML BAG IV PRN ×2 (23:45)
[2019-03-20 23:46] LABS: BUN/Creatinine Ratio 21; Blood Urea Nitrogen 23 mg/dL (9-20); Calcium 9.8 mg/dL (8.4-10.2); Hemolysis Index 29
[2019-03-20] MEDS: D5W/0.45% NACL/KCL 20 MEQ 20 MEQ/1,000 ML BAG IV SCH (23:53)
--- NOTE | 2019-03-21 00:02 | History and Physical Report ---
History of Present Illness Date of examination: 03/20/19 Date of admission: 03/20/19 18:28 Chief complaint: Vomiting for 1 day High blood glucose levels History of present illness: 33-year-old -[place] male with history of schizophrenia hypertension and juvenile onset diabetes sent from psychiatric facility for vomiting and high blood glucose levels. Patient has been noncompliant. Patient is supposed to be on long-acting and short-acting insulin--basal bolus regimen. Patient has been taking only sliding scale insulin. Vomitings since yesterday. No fever and chills. No shortness of breath. Past Medical History Previous Medical History?: Yes Hypertension: Yes Diabetes: Yes (IDDM) Psychiatric history Schizophrenia Surgical History Past Surgical History?: Yes Social History Smoking Status: Current Every Day Smoker Substance Use Type: None Family history Htn - Medications Home Medications: Home Medications Medication Instructions Recorded Confirmed Last Taken Type Lisinopril 20 mg PO DAILY 04/01/14 02/18/19 08/30/14 History Acetaminophen [Acetaminophen TAB] 2 tab PO Q4H PRN #15 tablet 02/20/19 Unknown Rx Famotidine [Pepcid] 20 mg PO BID #15 tablet 02/20/19 Unknown Rx Insulin Aspart [NovoLOG Flexpen] 1 dose SQ AC PRN #1 pen 02/20/19 Unknown Rx Insulin Detemir [Levemir Flextouch] 30 units SQ QHS #1 insuln.pen 02/20/19 Unknown Rx Review of Systems ROS: Stated complaint: DIZZINESS Other details as noted in HPI Comment: All other systems reviewed and negative Constitutional: denies: chills, fever Respiratory: denies: cough, shortness of breath, SOB with exertion Cardiovascular: denies: chest pain, palpitations Gastrointestinal: nausea, vomiting. denies: abdominal pain, diarrhea, constipation, hematemesis, melena, hematochezia Musculoskeletal: denies: back pain Medications and Allergies Allergies Allergy/AdvReac Type Severity Reaction Status Date / Time No Known Allergies Allergy Unverified 03/29/14 14:49 Home Medications Medication Instructions Recorded Confirmed Last Taken Type Insulin Detemir [Levemir Flextouch] 20 units SQ QHS 03/20/19 03/20/19 03/20/19 History Paliperidone Palmitate [Invega 156 mg IM QMONTH 03/20/19 03/20/19 02/23/19 History Sustenna] Trazodone HCl 150 mg PO QHS 03/20/19 03/20/19 03/20/19 History risperiDONE [Risperdal] 4 mg PO QHS 03/20/19 03/20/19 03/20/19 History Active Meds: Active Medications Acetaminophen (Tylenol) 650 mg PO Q4H PRN PRN Reason: Pain MILD(1-3)/Fever >100.5/SNOW Dextrose (D50w (25gm) Syringe) 0 ml IV PRN PRN PRN Reason: Hypoglycemia Dextrose (D50w (25gm) Syringe) 0 ml IV PRN PRN PRN Reason: Hypoglycemia Famotidine (Pepcid) 20 mg IV BID [facility] Hydromorphone HCl (Dilaudid) 0.5 mg IV Q3H PRN PRN Reason: Pain , Severe (7-10) Insulin Human Regular 100 (units/ Sodium Chloride) 100 mls @ 1 mls/hr IV TITR [facility]; Protocol Last Titration: 03/20/19 23:18 Dose: 3 units/hr, 3 mls/hr Documented by: Potassium Chloride/Dextrose/Sod Cl (D5w/0.45% Nacl/Kcl 20 Meq) 20 meq in 1,000 mls @ 125 mls/hr IV DIRECT [facility] Sodium Chloride (Nacl 0.9% 1000 Ml) 1,000 mls @ 125 mls/hr IV DIRECT [facility] Insulin Human Regular 100 (units/ Sodium Chloride) 100 mls @ 1 mls/hr IV TITR [facility]; Protocol Potassium Chloride (Kcl 10meq/100ml) 10 meq in 100 mls @ 100 mls/hr IV Q1H [facility] Stop: 03/21/19 03:44 Potassium Chloride (Kcl 10meq/100ml) 10 meq in 100 mls @ 100 mls/hr IV Q1H [facility] Stop: 03/21/19 05:44 Metoclopramide HCl (Reglan) 10 mg IV Q6H PRN PRN Reason: Nausea And Vomiting Miscellaneous Medication (Trazodone Hcl [Trazodone Hcl]) 150 mg PO QHS [facility] Miscellaneous Medication (Risperidone [Risperdal]) 4 mg PO QHS [facility] Miscellaneous Medication (Insulin Detemir [Levemir Flextouch]) 20 units SQ QHS [facility] Ondansetron HCl (Zofran) 4 mg IV Q3H PRN PRN Reason: Nausea And Vomiting Sodium Chloride (Sodium Chloride Flush Syringe 10 Ml) 10 ml IV BID [facility] Sodium Chloride (Sodium Chloride Flush Syringe 10 Ml) 10 ml IV PRN PRN PRN Reason: LINE FLUSH Exam - Constitutional Vitals: Temp Pulse Resp BP Pulse Ox 98.1 F 101 H 10 L 92/63 98 03/20/19 22:15 03/20/19 21:15 03/20/19 21:15 03/20/19 21:27 03/20/19 21:15 General appearance: Present: mild distress, well-nourished - EENT Eyes: Present: PERRL ENT: hearing intact, clear oral mucosa - Neck Neck: Present: supple, normal ROM - Respiratory Respiratory effort: normal Respiratory: bilateral: CTA - Cardiovascular Heart rate: 102 Rhythm: regular Heart Sounds: Present: S1 & S2. Absent: rub, click - Extremities Extremities: no ischemia, pulses intact, pulses symmetrical, No edema Peripheral Pulses: within normal limits - Abdominal General gastrointestinal: Present: soft, non-tender, non-distended, normal bowel sounds Male genitourinary: Present: normal - Rectal Rectal Exam: deferred - Integumentary Integumentary: Present: clear, warm, dry - Musculoskeletal Musculoskeletal: gait normal, strength equal bilaterally - Psychiatric Psychiatric: appropriate mood/affect, intact judgment & insight - Neurologic Neurologic: CNII-XII intact, moves all extremities - Allied Health Allied health notes reviewed: nursing Results - Labs CBC & Chem 7: 03/20/19 15:34 03/20/19 23:01 Labs: Laboratory Last Values WBC 10.8 K/mm3 (4.5-11.0) 03/20/19 15:34 RBC 5.08 M/mm3 (3.65-5.03) H 03/20/19 15:34 Hgb 15.2 gm/dl (11.8-15.2) 03/20/19 15:34 Hct 50.2 % (35.5-45.6) H 03/20/19 15:34 MCV 99 fl (84-94) H 03/20/19 15:34 MCH 30 pg (28-32) 03/20/19 15:34 MCHC 30 % (32-34) L 03/20/19 15:34 RDW 15.7 % (13.2-15.2) H 03/20/19 15:34 Plt Count 235 K/mm3 (140-440) 03/20/19 15:34 Lymph % (Auto) 11.4 % (13.4-35.0) L 03/20/19 15:34 [place] % (Auto) 5.1 % (0.0-7.3) 03/20/19 15:34 Eos % (Auto) 0.1 % (0.0-4.3) 03/20/19 15:34 Baso % (Auto) 0.3 % (0.0-1.8) 03/20/19 15:34 Lymph # 1.2 K/mm3 (1.2-5.4) 03/20/19 15:34 [place] # 0.6 K/mm3 (0.0-0.8) 03/20/19 15:34 Eos # 0.0 K/mm3 (0.0-0.4) 03/20/19 15:34 Baso # 0.0 K/mm3 (0.0-0.1) 03/20/19 15:34 Seg Neutrophils % 83.1 % (40.0-70.0) H 03/20/19 15:34 Seg Neutrophils # 8.9 K/mm3 (1.8-7.7) H 03/20/19 15:34 Sodium 148 mmol/L (137-145) H 03/20/19 23:01 Potassium 3.5 mmol/L (3.6-5.0) L 03/20/19 23:01 Chloride 106.2 mmol/L (98-107) 03/20/19 23:01 Carbon Dioxide 27 mmol/L (22-30) 03/20/19 23:01 18 mmol/L 03/20/19 23:01 BUN 23 mg/dL (9-20) H 03/20/19 23:01 1.1 mg/dL (0.8-1.5) 03/20/19 23:01 Estimated GFR > 60 ml/min 03/20/19 23:01 21 % 03/20/19 23:01 Glucose 245 mg/dL (75-100) H 03/20/19 23:01 POC Glucose 188 (70-105) H 03/20/19 23:20 Lactic Acid 3.10 mmol/L (0.7-2.0) H* 03/20/19 21:08 Calcium 9.8 mg/dL (8.4-10.2) 03/20/19 23:01 Phosphorus 8.10 mg/dL (2.5-4.5) H 03/20/19 17:36 Magnesium 3.00 mg/dL (1.7-2.3) H 03/20/19 17:36 0.70 mg/dL (0.1-1.2) 03/20/19 15:34 AST 12 units/L (5-40) 03/20/19 15:34 ALT 13 units/L (7-56) 03/20/19 15:34 117 units/L (35-129) 03/20/19 15:34 7.5 g/dL (6.3-8.2) 03/20/19 15:34 4.5 g/dL (3.9-5) 03/20/19 15:34 1.5 % 03/20/19 15:34 Straw (Yellow) 03/20/19 19:11 Clear (Clear) 03/20/19 19:11 5.0 (5.0-7.0) 03/20/19 19:11 Ur Specific [place] 1.028 (1.003-1.030) 03/20/19 19:11 <15 mg/dl mg/dL (Negative) 03/20/19 19:11 >=500 mg/dL (Negative) 03/20/19 19:11 20 mg/dL (Negative) 03/20/19 19:11 Neg (Negative) 03/20/19 19:11 Neg (Negative) 03/20/19 19:11 Neg (Negative) 03/20/19 19:11 < 2.0 mg/dL (<2.0) 03/20/19 19:11 Ur Leukocyte Esterase Neg (Negative) 03/20/19 19:11 < 1.0 /HPF (0.0-6.0) 03/20/19 19:11 1.0 /HPF (0.0-6.0) 03/20/19 19:11 Presumptive negative 03/20/19 19:11 Presumptive negative 03/20/19 19:11 Ur Barbiturates Screen Presumptive negative 03/20/19 19:11 Ur Phencyclidine Scrn Presumptive negative 03/20/19 19:11 Ur Amphetamines Screen Presumptive negative 03/20/19 19:11 U Benzodiazepines Scrn Presumptive negative 03/20/19 19:11 Presumptive negative 03/20/19 19:11 U Marijuana (THC) Screen Presumptive negative 03/20/19 19:11 Disclamer 03/20/19 19:11 Short CBC 03/20/19 Range/Units 15:34 WBC 10.8 (4.5-11.0) K/mm3 Hgb 15.2 (11.8-15.2) gm/dl Hct 50.2 H (35.5-45.6) % Plt Count 235 (140-440) K/mm3 BMP 03/20/19 03/20/19 03/20/19 15:34 17:36 20:00 Sodium 124 L 129 L 137 D Potassium 5.1 H 4.8 4.3 Chloride 84.1 L 87.8 L 99.6 Carbon Dioxide 19 L 21 L 22 BUN 30 H 29 H 24 H Creatinine 1.2 1.3 1.1 Glucose 1387 H* 1138 H* 673 H* Calcium 9.4 9.8 9.4 03/20/19 03/20/19 21:08 23:01 Sodium 141 148 H Potassium 4.3 3.5 L Chloride 100.2 106.2 Carbon Dioxide 24 27 BUN 24 H 23 H Creatinine 1.0 1.1 Glucose 502 H* 245 H Calcium 9.7 9.8 Liver Function 03/20/19 Range/Units 15:34 Total Bilirubin 0.70 (0.1-1.2) mg/dL AST 12 (5-40) units/L ALT 13 (7-56) units/L Alkaline Phosphatase 117 (35-129) units/L Albumin 4.5 (3.9-5) g/dL Urine 03/20/19 Range/Units 19:11 Urine Color Straw (Yellow) Urine pH 5.0 (5.0-7.0) Ur Specific [place] 1.028 (1.003-1.030) Urine Protein <15 mg/dl (Negative) mg/dL Urine Glucose (UA) >=500 (Negative) mg/dL - Imaging and Cardiology EKG: report reviewed (sinus tachycardia heart rate of 102) Chest x-ray: report reviewed (no acute findings) Assessment and Plan Assessment and plan: Critical care time 40 minutes Advance Directives: Yes (full code) VTE prophylaxis?: Chemical Plan of care discussed with patient/family: Yes - Patient Problems (1) DKA (diabetic ketoacidosis) Current Visit: Yes Status: Acute Qualifiers: Diabetes mellitus type: type 1 Diabetes mellitus complication detail: without coma Qualified Code(s): E10.10 - Type 1 diabetes mellitus with ketoacidosis without coma Plan to address problem: DKA protocol initiated IV insulin initiated IV fluids initiated Patient also started on basal insulin (2) Hyponatremia Current Visit: Yes Status: Acute Plan to address problem: Should correct with correction of blood glucose levels (3) Hyperkalemia Current Visit: Yes Status: Acute Plan to address problem: Should correct with correction of blood glucose levels (4) Hypertension Current Visit: Yes Status: Chronic Qualifiers: Hypertension type: essential hypertension Qualified Code(s): I10 - Essential (primary) hypertension Plan to address problem: Continue antihypertensives (5) GERD (gastroesophageal reflux disease) Current Visit: Yes Status: Acute Qualifiers: Esophagitis presence: with esophagitis Qualified Code(s): K21.0 - Gastro- esophageal reflux disease with esophagitis Plan to address problem: Continue PPIs (6) Schizophrenia Current Visit: Yes Status: Chronic Qualifiers: Schizophrenia type: unspecified Qualified Code(s): F20.9 - Schizophrenia, unspecified Plan to address problem: Continue antipsychotics (7) DVT prophylaxis Current Visit: Yes Status: Acute Plan to address problem: On heparin 5000 every 12hrs and GI prophylaxis
[2019-03-21 01:01] LABS: BUN/Creatinine Ratio 26; Blood Urea Nitrogen 23 mg/dL (9-20); Calcium 9.7 mg/dL (8.4-10.2); Hemolysis Index 8
[2019-03-21] MEDS: CEFEPIME/NS 2 GM/100 ML 2 GM/100 ML BAG IV SCH ×2 (01:18→10:18)
[2019-03-21] MEDS: FAMOTIDINE 20 MG/2 ML INJ IV SCH ×3 (01:19→22:07)
[2019-03-21] MEDS: HEPARIN 5,000 UNIT/1 ML VIAL SUB-Q SCH ×3 (01:19→22:07)
[2019-03-21 03:01] LABS: BUN/Creatinine Ratio 24; Blood Urea Nitrogen 22 mg/dL (9-20); Calcium 9.2 mg/dL (8.4-10.2); Hemolysis Index 13
[2019-03-21 05:15] LABS: Calcium 9.2 mg/dL (8.4-10.2)
[2019-03-21 05:18] LABS: BUN/Creatinine Ratio 29; Blood Urea Nitrogen 23 mg/dL (9-20); Calcium 9.4 mg/dL (8.4-10.2); Hemolysis Index 8
[2019-03-21] MEDS: D5W/0.45% NACL/KCL 20 MEQ 20 MEQ/1,000 ML BAG IV SCH (07:47)
[2019-03-21] MEDS ORDERED: DEXTROSE 50% IN WATER (25GM) 50 ML SYRINGE IV PRN (08:06)
[2019-03-21 08:26] LABS: BUN/Creatinine Ratio 24; Blood Urea Nitrogen 22 mg/dL (9-20); Calcium 9.4 mg/dL (8.4-10.2); Hemolysis Index 3
[2019-03-21] MEDS ORDERED: INSULIN GLARGINE 100 UNITS/ML SUB-Q NR (10:00)
[2019-03-21 10:52] LABS: BUN/Creatinine Ratio 22; Blood Urea Nitrogen 20 mg/dL (9-20); Calcium 9.1 mg/dL (8.4-10.2); Hemolysis Index 19
--- NOTE | 2019-03-21 11:28 | Consultation ---
History of Present Illness - Reason for Consult Consult date: 03/21/19 DKA Requesting physician: LIA PAGE - History of Present Illness 33 y/o male with known psychiatric disorders admitted with DKA. Second admit in as many months. Actually saw the patient briefly in ICU for same diagnosis. Was started on insulin drip and now Anion gap has closed. Past History Past Medical History: diabetes, other (psych history) Social history: no significant social history Family history: no significant family history Medications and Allergies Allergies Allergy/AdvReac Type Severity Reaction Status Date / Time No Known Allergies Allergy Unverified 03/29/14 14:49 Home Medications Medication Instructions Recorded Confirmed Last Taken Type Insulin Detemir [Levemir Flextouch] 20 units SQ QHS 03/20/19 03/20/19 03/20/19 History Paliperidone Palmitate [Invega 156 mg IM QMONTH 03/20/19 03/20/19 02/23/19 History Sustenna] Trazodone HCl 150 mg PO QHS 03/20/19 03/20/19 03/20/19 History risperiDONE [Risperdal] 4 mg PO QHS 03/20/19 03/20/19 03/20/19 History Active Meds: Active Medications Acetaminophen (Tylenol) 650 mg PO Q4H PRN PRN Reason: Pain MILD(1-3)/Fever >100.5/SNOW Dextrose (D50w (25gm) Syringe) 0 ml IV PRN PRN PRN Reason: Hypoglycemia Dextrose (D50w (25gm) Syringe) 50 ml IV PRN PRN PRN Reason: Hypoglycemia Famotidine (Pepcid) 20 mg IV BID [facility] Last Admin: 03/21/19 10:20 Dose: 20 mg Documented by: Heparin Sodium (Porcine) (Heparin) 5,000 unit SUB-Q Q12HR [facility] Last Admin: 03/21/19 10:22 Dose: 5,000 unit Documented by: Hydromorphone HCl (Dilaudid) 0.5 mg IV Q3H PRN PRN Reason: Pain , Severe (7-10) Insulin Human Regular 100 (units/ Sodium Chloride) 100 mls @ 1 mls/hr IV TITR [facility]; Protocol Last Titration: 03/21/19 08:29 Dose: 1 units/hr, 1 mls/hr Documented by: Potassium Chloride/Dextrose/Sod Cl (D5w/0.45% Nacl/Kcl 20 Meq) 20 meq in 1,000 mls @ 125 mls/hr IV DIRECT [facility] Last Admin: 03/21/19 07:47 Dose: 125 mls/hr Documented by: Sodium Chloride (Nacl 0.9% 1000 Ml) 1,000 mls @ 125 mls/hr IV DIRECT [facility] Potassium Chloride (Kcl 10meq/100ml) 10 meq in 100 mls @ 100 mls/hr IV Q1H [facility] Stop: 03/21/19 03:44 Potassium Chloride (Kcl 10meq/100ml) 10 meq in 100 mls @ 100 mls/hr IV Q1H [facility] Stop: 03/21/19 05:44 Cefepime HCl (Maxipime/Ns 2 Gm/100 Ml) 2 gm in 100 mls @ 200 mls/hr IV Q8H [facility]; Protocol Last Admin: 03/21/19 10:18 Dose: 200 mls/hr Documented by: Insulin Human Lispro (Humalog) 0 unit SUB-Q ACHS [facility]; Protocol Metoclopramide HCl (Reglan) 10 mg IV Q6H PRN PRN Reason: Nausea And Vomiting Miscellaneous Medication (Insulin Detemir [Levemir Flextouch]) 20 units SQ QHS [facility] Ondansetron HCl (Zofran) 4 mg IV Q3H PRN PRN Reason: Nausea And Vomiting Risperidone (Risperdal) 3 mg PO QHS [facility] Risperidone (Risperdal) 1 mg PO QHS [facility] Sodium Chloride (Sodium Chloride Flush Syringe 10 Ml) 10 ml IV BID [facility] Sodium Chloride (Sodium Chloride Flush Syringe 10 Ml) 10 ml IV PRN PRN PRN Reason: LINE FLUSH Trazodone HCl (Desyrel) 150 mg PO QHS [facility] Review of Systems All systems: negative Exam - Constitutional Vitals: Temp Pulse Resp BP Pulse Ox 98.8 F 83 12 116/80 100 03/21/19 04:00 03/21/19 09:00 03/21/19 09:00 03/21/19 09:00 03/21/19 09:00 General appearance: Present: no acute distress, well-nourished - EENT Eyes: Present: PERRL, EOM intact ENT: hearing intact, clear oral mucosa - Neck Neck: Present: supple, normal ROM - Respiratory Respiratory effort: normal Respiratory: bilateral: CTA - Cardiovascular Rhythm: regular Heart Sounds: Present: S1 & S2 - Extremities Extremities: no ischemia - Abdominal General gastrointestinal: Present: soft, non-distended, normal bowel sounds Male genitourinary: Present: deferred - Rectal Rectal Exam: deferred - Integumentary Integumentary: Present: clear, warm, dry - Musculoskeletal Musculoskeletal: strength equal bilaterally Results - Labs CBC & Chem 7: 03/20/19 15:34 03/21/19 10:00 Labs: Abnormal lab results 03/20/19 03/20/19 03/20/19 Range/Units 15:14 15:34 15:34 RBC 5.08 H (3.65-5.03) M/mm3 Hct 50.2 H (35.5-45.6) % MCV 99 H (84-94) fl MCHC 30 L (32-34) % RDW 15.7 H (13.2-15.2) % Lymph % (Auto) 11.4 L (13.4-35.0) % Seg Neutrophils % 83.1 H (40.0-70.0) % Seg Neutrophils # 8.9 H (1.8-7.7) K/mm3 Sodium 124 L (137-145) mmol/L Potassium 5.1 H (3.6-5.0) mmol/L Chloride 84.1 L (98-107) mmol/L Carbon Dioxide 19 L (22-30) mmol/L BUN 30 H (9-20) mg/dL Glucose 1387 H* (75-100) mg/dL POC Glucose > 500 H (70-105) Hemoglobin A1c (4-6) % Lactic Acid (0.7-2.0) mmol/L Phosphorus (2.5-4.5) mg/dL Magnesium (1.7-2.3) mg/dL 03/20/19 03/20/19 03/20/19 Range/Units 15:34 16:34 17:36 RBC (3.65-5.03) M/mm3 Hct (35.5-45.6) % MCV (84-94) fl MCHC (32-34) % RDW (13.2-15.2) % Lymph % (Auto) (13.4-35.0) % Seg Neutrophils % (40.0-70.0) % Seg Neutrophils # (1.8-7.7) K/mm3 Sodium (137-145) mmol/L Potassium (3.6-5.0) mmol/L Chloride (98-107) mmol/L Carbon Dioxide (22-30) mmol/L BUN (9-20) mg/dL Glucose (75-100) mg/dL POC Glucose (70-105) Hemoglobin A1c (4-6) % Lactic Acid 2.40 H* 2.40 H* 2.80 H* (0.7-2.0) mmol/L Phosphorus (2.5-4.5) mg/dL Magnesium (1.7-2.3) mg/dL 03/20/19 03/20/19 03/20/19 Range/Units 17:36 17:36 20:00 RBC (3.65-5.03) M/mm3 Hct (35.5-45.6) % MCV (84-94) fl MCHC (32-34) % RDW (13.2-15.2) % Lymph % (Auto) (13.4-35.0) % Seg Neutrophils % (40.0-70.0) % Seg Neutrophils # (1.8-7.7) K/mm3 Sodium 129 L (137-145) mmol/L Potassium (3.6-5.0) mmol/L Chloride 87.8 L (98-107) mmol/L Carbon Dioxide 21 L (22-30) mmol/L BUN 29 H 24 H (9-20) mg/dL Glucose 1138 H* 673 H* (75-100) mg/dL POC Glucose (70-105) Hemoglobin A1c (4-6) % Lactic Acid (0.7-2.0) mmol/L Phosphorus 8.10 H (2.5-4.5) mg/dL Magnesium 3.00 H (1.7-2.3) mg/dL 03/20/19 03/20/19 03/20/19 Range/Units 20:00 20:18 21:08 RBC (3.65-5.03) M/mm3 Hct (35.5-45.6) % MCV (84-94) fl MCHC (32-34) % RDW (13.2-15.2) % Lymph % (Auto) (13.4-35.0) % Seg Neutrophils % (40.0-70.0) % Seg Neutrophils # (1.8-7.7) K/mm3 Sodium (137-145) mmol/L Potassium (3.6-5.0) mmol/L Chloride (98-107) mmol/L Carbon Dioxide (22-30) mmol/L BUN 24 H (9-20) mg/dL Glucose 502 H* (75-100) mg/dL POC Glucose > 500 H (70-105) Hemoglobin A1c (4-6) % Lactic Acid 2.60 H* (0.7-2.0) mmol/L Phosphorus (2.5-4.5) mg/dL Magnesium (1.7-2.3) mg/dL 03/20/19 03/20/19 03/20/19 Range/Units 21:08 21:20 23:01 RBC (3.65-5.03) M/mm3 Hct (35.5-45.6) % MCV (84-94) fl MCHC (32-34) % RDW (13.2-15.2) % Lymph % (Auto) (13.4-35.0) % Seg Neutrophils % (40.0-70.0) % Seg Neutrophils # (1.8-7.7) K/mm3 Sodium 148 H (137-145) mmol/L Potassium 3.5 L (3.6-5.0) mmol/L Chloride (98-107) mmol/L Carbon Dioxide (22-30) mmol/L BUN 23 H (9-20) mg/dL Glucose 245 H (75-100) mg/dL POC Glucose 412 H (70-105) Hemoglobin A1c (4-6) % Lactic Acid 3.10 H* (0.7-2.0) mmol/L Phosphorus (2.5-4.5) mg/dL Magnesium (1.7-2.3) mg/dL 03/20/19 03/20/19 03/21/19 Range/Units 23:01 23:20 00:10 RBC (3.65-5.03) M/mm3 Hct (35.5-45.6) % MCV (84-94) fl MCHC (32-34) % RDW (13.2-15.2) % Lymph % (Auto) (13.4-35.0) % Seg Neutrophils % (40.0-70.0) % Seg Neutrophils # (1.8-7.7) K/mm3 Sodium (137-145) mmol/L Potassium (3.6-5.0) mmol/L Chloride (98-107) mmol/L Carbon Dioxide (22-30) mmol/L BUN (9-20) mg/dL Glucose (75-100) mg/dL POC Glucose 188 H 150 H (70-105) Hemoglobin A1c (4-6) % Lactic Acid 2.50 H* (0.7-2.0) mmol/L Phosphorus (2.5-4.5) mg/dL Magnesium (1.7-2.3) mg/dL 03/21/19 03/21/19 03/21/19 Range/Units 00:20 00:20 00:20 RBC (3.65-5.03) M/mm3 Hct (35.5-45.6) % MCV (84-94) fl MCHC (32-34) % RDW (13.2-15.2) % Lymph % (Auto) (13.4-35.0) % Seg Neutrophils % (40.0-70.0) % Seg Neutrophils # (1.8-7.7) K/mm3 Sodium 149 H (137-145) mmol/L Potassium 3.5 L (3.6-5.0) mmol/L Chloride 108.7 H (98-107) mmol/L Carbon Dioxide (22-30) mmol/L BUN 23 H (9-20) mg/dL Glucose 152 H (75-100) mg/dL POC Glucose (70-105) Hemoglobin A1c 10.9 H (4-6) % Lactic Acid (0.7-2.0) mmol/L Phosphorus (2.5-4.5) mg/dL Magnesium 2.80 H (1.7-2.3) mg/dL 03/21/19 03/21/19 03/21/19 Range/Units 01:14 02:01 02:28 RBC (3.65-5.03) M/mm3 Hct (35.5-45.6) % MCV (84-94) fl MCHC (32-34) % RDW (13.2-15.2) % Lymph % (Auto) (13.4-35.0) % Seg Neutrophils % (40.0-70.0) % Seg Neutrophils # (1.8-7.7) K/mm3 Sodium 147 H (137-145) mmol/L Potassium (3.6-5.0) mmol/L Chloride 109.3 H (98-107) mmol/L Carbon Dioxide (22-30) mmol/L BUN 22 H (9-20) mg/dL Glucose 132 H (75-100) mg/dL POC Glucose 140 H 179 H (70-105) Hemoglobin A1c (4-6) % Lactic Acid (0.7-2.0) mmol/L Phosphorus (2.5-4.5) mg/dL Magnesium (1.7-2.3) mg/dL 03/21/19 03/21/19 03/21/19 Range/Units 03:10 04:11 04:11 RBC (3.65-5.03) M/mm3 Hct (35.5-45.6) % MCV (84-94) fl MCHC (32-34) % RDW (13.2-15.2) % Lymph % (Auto) (13.4-35.0) % Seg Neutrophils % (40.0-70.0) % Seg Neutrophils # (1.8-7.7) K/mm3 Sodium 151 H (137-145) mmol/L Potassium 3.5 L (3.6-5.0) mmol/L Chloride 112.8 H (98-107) mmol/L Carbon Dioxide (22-30) mmol/L BUN 23 H (9-20) mg/dL Glucose 112 H (75-100) mg/dL POC Glucose 248 H (70-105) Hemoglobin A1c (4-6) % Lactic Acid (0.7-2.0) mmol/L Phosphorus (2.5-4.5) mg/dL Magnesium 2.50 H (1.7-2.3) mg/dL 03/21/19 03/21/19 03/21/19 Range/Units 04:14 06:07 07:41 RBC (3.65-5.03) M/mm3 Hct (35.5-45.6) % MCV (84-94) fl MCHC (32-34) % RDW (13.2-15.2) % Lymph % (Auto) (13.4-35.0) % Seg Neutrophils % (40.0-70.0) % Seg Neutrophils # (1.8-7.7) K/mm3 Sodium 151 H (137-145) mmol/L Potassium (3.6-5.0) mmol/L Chloride 110.7 H (98-107) mmol/L Carbon Dioxide (22-30) mmol/L BUN 22 H (9-20) mg/dL Glucose 121 H (75-100) mg/dL POC Glucose 131 H 109 H (70-105) Hemoglobin A1c (4-6) % Lactic Acid (0.7-2.0) mmol/L Phosphorus (2.5-4.5) mg/dL Magnesium (1.7-2.3) mg/dL 03/21/19 03/21/19 03/21/19 Range/Units 08:20 09:15 10:00 RBC (3.65-5.03) M/mm3 Hct (35.5-45.6) % MCV (84-94) fl MCHC (32-34) % RDW (13.2-15.2) % Lymph % (Auto) (13.4-35.0) % Seg Neutrophils % (40.0-70.0) % Seg Neutrophils # (1.8-7.7) K/mm3 Sodium 146 H (137-145) mmol/L Potassium (3.6-5.0) mmol/L Chloride (98-107) mmol/L Carbon Dioxide (22-30) mmol/L BUN (9-20) mg/dL Glucose 245 H (75-100) mg/dL POC Glucose 121 H 155 H (70-105) Hemoglobin A1c (4-6) % Lactic Acid (0.7-2.0) mmol/L Phosphorus (2.5-4.5) mg/dL Magnesium (1.7-2.3) mg/dL - Imaging and Cardiology Chest x-ray: report reviewed Assessment and Plan 33 y/o male with DKA 1. Stop insulin drip 2. Start long acting insulin and Feed patient 3. Continue sliding scale therapy 4. Stable for transfer out of unit. Will sign off once out of unit. CCT 31 minutes.
[2019-03-21] MEDS: INSULIN LISPRO 100 UNIT/ML SUB-Q SCH ×3 (12:04→22:14)
--- NOTE | 2019-03-21 13:21 | Progress Note ---
Assessment and Plan Assessment and plan: 43-year-old male with past medical history significant for diabetes mellitus was sent from psych facility for hyperglycemia, nausea, vomiting and abdominal pain. In the emergency department blood sugar was 1385, high anion gap, patient admitted to the floor for the management of DKA DKA - Patient was treated according to DKA protocol and Closed. Diabetes mellitus, and complaince - Start on long-acting insulin and continue sliding scale insulin, ADA diet, Accu-Chek, adjust insulin as needed -Patient counseled extensively about adherence to medication treatment. Psychiatric illness - Patient is currently stable and was transferred back to his psych facility DVT prophylaxis Disposition; transferred the patient to medical floor History Interval history: Patient was seen and evaluated this morning, patient was alert and oriented. Hospitalist Physical - Physical exam Narrative exam: Not in cardiopulmonary distress. The patient appeared well nourished and normally developed. Vital signs as documented. Head exam is unremarkable. No scleral icterus . Neck is without jugular venous distension, thyromegaly, or carotid bruits. Lungs are clear to auscultation. Cardiac exam reveals regular rate and Rhythm. First and second heart sounds normal. No murmurs, rubs or gallops. Abdominal exam reveals normal bowel sounds, no masses, no organomegaly and no aortic enlargement. Extremities are nonedematous and both femoral and pedal pulses are normal. 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 No focal weakness. - Constitutional Vitals: Temp Pulse Resp BP Pulse Ox 98.8 F 80 10 L 119/88 100 03/21/19 04:00 03/21/19 12:00 03/21/19 12:00 03/21/19 12:00 03/21/19 12:00 General appearance: Present: no acute distress, well-nourished Results - Labs CBC & Chem 7: 03/20/19 15:34 03/21/19 10:00 Labs: Laboratory Last Values WBC 10.8 K/mm3 (4.5-11.0) 03/20/19 15:34 RBC 5.08 M/mm3 (3.65-5.03) H 03/20/19 15:34 Hgb 15.2 gm/dl (11.8-15.2) 03/20/19 15:34 Hct 50.2 % (35.5-45.6) H 03/20/19 15:34 MCV 99 fl (84-94) H 03/20/19 15:34 MCH 30 pg (28-32) 03/20/19 15:34 MCHC 30 % (32-34) L 03/20/19 15:34 RDW 15.7 % (13.2-15.2) H 03/20/19 15:34 Plt Count 235 K/mm3 (140-440) 03/20/19 15:34 Lymph % (Auto) 11.4 % (13.4-35.0) L 03/20/19 15:34 [place] % (Auto) 5.1 % (0.0-7.3) 03/20/19 15:34 Eos % (Auto) 0.1 % (0.0-4.3) 03/20/19 15:34 Baso % (Auto) 0.3 % (0.0-1.8) 03/20/19 15:34 Lymph # 1.2 K/mm3 (1.2-5.4) 03/20/19 15:34 [place] # 0.6 K/mm3 (0.0-0.8) 03/20/19 15:34 Eos # 0.0 K/mm3 (0.0-0.4) 03/20/19 15:34 Baso # 0.0 K/mm3 (0.0-0.1) 03/20/19 15:34 Seg Neutrophils % 83.1 % (40.0-70.0) H 03/20/19 15:34 Seg Neutrophils # 8.9 K/mm3 (1.8-7.7) H 03/20/19 15:34 Sodium 146 mmol/L (137-145) H 03/21/19 10:00 Potassium 4.1 mmol/L (3.6-5.0) 03/21/19 10:00 Chloride 106.6 mmol/L (98-107) 03/21/19 10:00 Carbon Dioxide 26 mmol/L (22-30) 03/21/19 10:00 18 mmol/L 03/21/19 10:00 BUN 20 mg/dL (9-20) 03/21/19 10:00 0.9 mg/dL (0.8-1.5) 03/21/19 10:00 Estimated GFR > 60 ml/min 03/21/19 10:00 22 % 03/21/19 10:00 Glucose 245 mg/dL (75-100) H 03/21/19 10:00 POC Glucose 186 (70-105) H 03/21/19 12:07 10.9 % (4-6) H 03/21/19 00:20 Lactic Acid 1.10 mmol/L (0.7-2.0) 03/21/19 02:28 Calcium 9.1 mg/dL (8.4-10.2) 03/21/19 10:00 Phosphorus 3.30 mg/dL (2.5-4.5) D 03/21/19 04:11 Magnesium 2.50 mg/dL (1.7-2.3) H 03/21/19 04:11 0.70 mg/dL (0.1-1.2) 03/20/19 15:34 AST 12 units/L (5-40) 03/20/19 15:34 ALT 13 units/L (7-56) 03/20/19 15:34 117 units/L (35-129) 03/20/19 15:34 7.5 g/dL (6.3-8.2) 03/20/19 15:34 4.5 g/dL (3.9-5) 03/20/19 15:34 1.5 % 03/20/19 15:34 Straw (Yellow) 03/20/19 19:11 Clear (Clear) 03/20/19 19:11 5.0 (5.0-7.0) 03/20/19 19:11 Ur Specific [place] 1.028 (1.003-1.030) 03/20/19 19:11 <15 mg/dl mg/dL (Negative) 03/20/19 19:11 >=500 mg/dL (Negative) 03/20/19 19:11 20 mg/dL (Negative) 03/20/19 19:11 Neg (Negative) 03/20/19 19:11 Neg (Negative) 03/20/19 19:11 Neg (Negative) 03/20/19 19:11 < 2.0 mg/dL (<2.0) 03/20/19 19:11 Ur Leukocyte Esterase Neg (Negative) 03/20/19 19:11 < 1.0 /HPF (0.0-6.0) 03/20/19 19:11 1.0 /HPF (0.0-6.0) 03/20/19 19:11 Presumptive negative 03/20/19 19:11 Presumptive negative 03/20/19 19:11 Ur Barbiturates Screen Presumptive negative 03/20/19 19:11 Ur Phencyclidine Scrn Presumptive negative 03/20/19 19:11 Ur Amphetamines Screen Presumptive negative 03/20/19 19:11 U Benzodiazepines Scrn Presumptive negative 03/20/19 19:11 Presumptive negative 03/20/19 19:11 U Marijuana (THC) Screen Presumptive negative 03/20/19 19:11 Disclamer 03/20/19 19:11 Active Medications - Current Medications Current Medications: Generic Name Dose Route Start Last Admin Trade Name Freq PRN Reason Stop Dose Admin Acetaminophen 650 mg 03/20/19 23:43 Tylenol PO Q4H PRN Pain MILD(1-3)/Fever >100.5/SNOW Dextrose 0 ml 03/20/19 23:44 D50w (25gm) Syringe IV PRN PRN Hypoglycemia Dextrose 50 ml 03/21/19 08:06 D50w (25gm) Syringe IV PRN PRN Hypoglycemia Famotidine 20 mg 03/20/19 23:45 03/21/19 10:20 Pepcid IV 20 mg BID EMILIANO Administration Heparin Sodium (Porcine) 5,000 unit 03/21/19 00:30 03/21/19 10:22 Heparin SUB-Q 5,000 unit Q12HR EMILIANO Administration Hydromorphone HCl 0.5 mg 03/20/19 23:43 Dilaudid IV Q3H PRN Pain , Severe (7-10) Insulin Human Regular 100 100 mls @ 1 mls/hr 03/20/19 18:00 03/21/19 11:56 units/ Sodium Chloride IV 0 units/hr TITR EMILIANO 0 mls/hr Titration Protocol 1 UNITS/HR Sodium Chloride 1,000 mls @ 125 mls/hr 03/20/19 23:45 Nacl 0.9% 1000 Ml IV DIRECT EMILIANO Potassium Chloride 10 meq in 100 mls @ 100 mls/hr 03/20/19 23:45 Kcl 10meq/100ml IV 03/21/19 03:44 Q1H EMILIANO Potassium Chloride 10 meq in 100 mls @ 100 mls/hr 03/20/19 23:45 Kcl 10meq/100ml IV 03/21/19 05:44 Q1H EMILIANO Cefepime HCl 2 gm in 100 mls @ 200 mls/hr 03/21/19 00:00 03/21/19 10:18 Maxipime/Ns 2 Gm/100 Ml IV 200 mls/hr Q8H EMILIANO Administration Protocol Insulin Human Lispro 0 unit 03/21/19 11:30 03/21/19 12:04 Humalog SUB-Q 3 unit ACHS EMILIANO Administration Protocol Metoclopramide HCl 10 mg 03/20/19 23:43 Reglan IV Q6H PRN Nausea And Vomiting Miscellaneous Medication 20 units 03/21/19 22:00 Insulin Detemir [Levemir Flextouch] SQ QHS [facility] Ondansetron HCl 4 mg 03/20/19 23:43 Zofran IV Q3H PRN Nausea And Vomiting Risperidone 3 mg 03/21/19 22:00 Risperdal PO QHS [facility] Risperidone 1 mg 03/21/19 22:00 Risperdal PO QHS [facility] Sodium Chloride 10 ml 03/21/19 10:00 03/21/19 12:04 Sodium Chloride Flush Syringe 10 Ml IV 10 ml BID EMILIANO Administration Sodium Chloride 10 ml 03/20/19 23:43 Sodium Chloride Flush Syringe 10 Ml IV PRN PRN LINE FLUSH Trazodone HCl 150 mg 03/21/19 22:00 Desyrel PO QHS [facility] Nutrition/Malnutrition Assess - Dietary Evaluation Nutrition/Malnutrition Findings: Nutrition Notes Start: 03/21/19 12:44 Freq: Status: Active Protocol: Document 03/21/19 12:44 LM (Rec: 03/21/19 13:07 LM [id number]) Nutrition Notes Need for Assessment generated from: MD Order,MST,Education Initial or Follow up Assessment Current Diagnosis Diabetes,Hypertension Other Pertinent Diagnosis DKA, schizophrenia Current Diet Consistent CHO Labs/Tests Hgb A1C 10.9 BG 121 BUN 22 Na 151 Pertinent Medications Reviewed Height 5 ft 5 in Weight 61.745 kg Usual Body Weight 68.2 kg [place] Body Weight (kg) 61.81 BMI 22.6 Weight change and time frame 7% wt loss in 2 weeks Subjective/Other Information MD consult for DM diet education and MST. Pt NPO at time of visit. 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 Pt stated he noticed he lost wt beginning 2 weeks ago. Pt stated he currently has poor appetite. Burn Absent Trauma Absent Energy Intake (non-severe) <75% Estimated Energy Requirement >7 days Interpretation of Weight Loss (severe) >2% in 1 week #2 Nutrition Diagnosis Food and nutrition-related knowledge deficit Etiology No prior DM diet education As Evidenced by Signs and Symptoms Pt needing DM diet education, HgbA1C 10.9 #1 Nutrition Diagnosis Malnutrition Etiology DKA As Evidenced by Signs and Symptoms 7% wt loss in 2 weeks, <75% EER >7 days Is patient on ventilator? No Is Patient Ambulatory and/or Out of Bed Yes REE-([facility]-ambulatory/OOB) [ 1929.629 [id number]] Calculation Used for Recommendations [facility] Additional Notes Protein needs: 49-62g (0.8-1g/ kg) Fluids: 1 ml/kcal Nutrition Intervention Change Diet Order: Consisntent CHO Teaching Recipient Patient Learning Readiness Good Teaching Methods Discussion,Handout Response to Teaching Verbalize understanding Education Handouts Provided CHO Counting for People with Diabetes Barriers to Learning Motivation RD phone number provided Yes Patient aware of follow up options Yes Goal #1 Meet at least 75% of energy and protein needs Anticipated Discharge Needs: Consistent CHO diet Follow-Up By: 03/25/19 Additional Comments F/U for PO intakes
[2019-03-21 15:46] LABS: BUN/Creatinine Ratio 21; Blood Urea Nitrogen 19 mg/dL (9-20); Calcium 8.6 mg/dL (8.4-10.2); Hemolysis Index 60
[2019-03-21] MEDS: SODIUM CHLORIDE 0.9% 1000 ML 1,000 ML IV SCH (19:37)
[2019-03-21 19:51] LABS: BUN/Creatinine Ratio 16; Blood Urea Nitrogen 16 mg/dL (9-20); Calcium 9.1 mg/dL (8.4-10.2); Hemolysis Index 6
[2019-03-21] MEDS ORDERED: risperiDONE 1 MG TAB PO SCH (22:00)
[2019-03-21] MEDS ORDERED: INSULIN DETEMIR 20 UNIT SQ SCH (22:00)
[2019-03-21] MEDS ORDERED: INSULIN GLARGINE 100 UNITS/ML SUB-Q SCH (22:00)
[2019-03-21] MEDS ORDERED: risperiDONE 3 MG TAB PO SCH (22:00)
[2019-03-21] MEDS ORDERED: traZODone 50 MG TAB PO SCH (22:00)
[2019-03-22 00:09] LABS: BUN/Creatinine Ratio 23; Blood Urea Nitrogen 16 mg/dL (9-20); Calcium 8.3 mg/dL (8.4-10.2); Hemolysis Index 16
[2019-03-22] MEDS: SODIUM CHLORIDE 0.9% 1000 ML 1,000 ML IV SCH (05:56)
[2019-03-22 05:59] VITALS: BP 111/74
--- NOTE | 2019-03-22 08:46 | Progress Note ---
Assessment and Plan 33 y/o male with DKA 1. Stable pulm status, no, issues. 2. Call if questions. Subjective Date of service: 03/22/19 Interval history: Successful transition to the floor. No acute pulmonary issues. No labs done this am. Objective - Constitutional Vitals: Vital Signs - 12hr 03/21/19 03/22/19 22:59 05:11 Temperature 98.3 F 98.2 F Pulse Rate 60 72 Respiratory 18 18 Rate Blood Pressure 111/68 111/74 O2 Sat by Pulse 97 97 Oximetry - Labs CBC & Chem 7: 03/20/19 15:34 03/21/19 22:48 Labs: Abnormal lab results 03/21/19 03/21/19 03/21/19 Range/Units 09:15 10:00 12:07 Sodium 146 H (137-145) mmol/L Potassium (3.6-5.0) mmol/L Carbon Dioxide (22-30) mmol/L Creatinine (0.8-1.5) mg/dL Glucose 245 H (75-100) mg/dL POC Glucose 155 H 186 H (70-105) Calcium (8.4-10.2) mg/dL 03/21/19 03/21/19 03/21/19 Range/Units 13:01 15:12 17:15 Sodium (137-145) mmol/L Potassium (3.6-5.0) mmol/L Carbon Dioxide 21 L (22-30) mmol/L Creatinine (0.8-1.5) mg/dL Glucose 287 H (75-100) mg/dL POC Glucose 284 H 256 H (70-105) Calcium (8.4-10.2) mg/dL 03/21/19 03/21/19 03/21/19 Range/Units 19:17 21:45 22:48 Sodium (137-145) mmol/L Potassium 3.0 L (3.6-5.0) mmol/L Carbon Dioxide (22-30) mmol/L Creatinine 0.7 L (0.8-1.5) mg/dL Glucose 246 H 208 H (75-100) mg/dL POC Glucose 166 H (70-105) Calcium 8.3 L (8.4-10.2) mg/dL 03/22/19 Range/Units 07:53 Sodium (137-145) mmol/L Potassium (3.6-5.0) mmol/L Carbon Dioxide (22-30) mmol/L Creatinine (0.8-1.5) mg/dL Glucose (75-100) mg/dL POC Glucose 54 L (70-105) Calcium (8.4-10.2) mg/dL Medications & Allergies - Medications Allergies/Adverse Reactions: Allergies No Known Allergies Allergy (Unverified 03/29/14 14:49) Home Medications: Home Medications Medication Instructions Recorded Confirmed Last Taken Type Insulin Detemir [Levemir Flextouch] 20 units SQ QHS 03/20/19 03/20/19 03/20/19 History Paliperidone Palmitate [Invega 156 mg IM QMONTH 03/20/19 03/20/19 02/23/19 History Sustenna] Trazodone HCl 150 mg PO QHS 03/20/19 03/20/19 03/20/19 History risperiDONE [Risperdal] 4 mg PO QHS 03/20/19 03/20/19 03/20/19 History Active Medications: Generic Name Dose Route Start Last Admin Trade Name Freq PRN Reason Stop Dose Admin Acetaminophen 650 mg 03/20/19 23:43 Tylenol PO Q4H PRN Pain MILD(1-3)/Fever >100.5/SNOW Dextrose 50 ml 03/21/19 08:06 D50w (25gm) Syringe IV PRN PRN Hypoglycemia Famotidine 20 mg 03/20/19 23:45 03/21/19 22:07 Pepcid IV 20 mg BID EMILIANO Administration Heparin Sodium (Porcine) 5,000 unit 03/21/19 00:30 03/21/19 22:07 Heparin SUB-Q 5,000 unit Q12HR EMILIANO Administration Hydromorphone HCl 0.5 mg 03/20/19 23:43 Dilaudid IV Q3H PRN Pain , Severe (7-10) Sodium Chloride 1,000 mls @ 125 mls/hr 03/20/19 23:45 03/22/19 05:56 Nacl 0.9% 1000 Ml IV 125 mls/hr DIRECT EMILIANO Administration Insulin Glargine 20 units 03/21/19 22:00 03/21/19 22:13 Lantus SUB-Q 20 units QHS EMILIANO Administration Insulin Human Lispro 0 unit 03/21/19 11:30 03/21/19 22:14 Humalog SUB-Q 3 unit ACHS EMILIANO Administration Protocol Metoclopramide HCl 10 mg 03/20/19 23:43 Reglan IV Q6H PRN Nausea And Vomiting Ondansetron HCl 4 mg 03/20/19 23:43 Zofran IV Q3H PRN Nausea And Vomiting Risperidone 3 mg 03/21/19 22:00 03/21/19 22:05 Risperdal PO 3 mg QHS EMILIANO Administration Risperidone 1 mg 03/21/19 22:00 03/21/19 22:06 Risperdal PO 1 mg QHS EMILIANO Administration Sodium Chloride 10 ml 03/21/19 10:00 03/21/19 22:08 Sodium Chloride Flush Syringe 10 Ml IV 10 ml BID EMILIANO Administration Sodium Chloride 10 ml 03/20/19 23:43 Sodium Chloride Flush Syringe 10 Ml IV PRN PRN LINE FLUSH Trazodone HCl 150 mg 03/21/19 22:00 03/21/19 22:05 Desyrel PO 150 mg QHS EMILIANO Administration
[2019-03-22] MEDS: INSULIN LISPRO 100 UNIT/ML SUB-Q SCH (11:00)
[2019-03-22] MEDS: FAMOTIDINE 20 MG/2 ML INJ IV SCH (11:01)
[2019-03-22] MEDS: HEPARIN 5,000 UNIT/1 ML VIAL SUB-Q SCH (11:02)
[2019-03-22] MEDS ORDERED: POTASSIUM CHLORIDE ER 20 MEQ TAB PO ONE (12:31)
--- NOTE | 2019-03-22 12:39 | Discharge Summary ---
Providers - Providers Date of Admission: 03/20/19 18:28 Date of discharge: 03/22/19 Attending physician: SATHYA ROBIN MD 03/20/19 23:44 Consult to Dietitian/Nutrition [CONS] Routine Physician Instructions: Reason For Exam: DKA Reason for Consult: Nutrition Recommendations Reason for Consult: Diet education [facility] Reason for admission: DKA, schizophrenia, medication non compliance Condition: Stable Hospital course: 33-year-old -[place] male with history of schizophrenia hypertension and juvenile onset diabetes sent from psychiatric facility for vomiting and high blood glucose levels. Patient has been noncompliant. Patient is supposed to be on long-acting and short-acting insulin--basal bolus regimen. Patient has been taking only sliding scale insulin. Vomitings since yesterday. No fever and chills. No shortness of breath. Patient was admitted to ICU and managed for DKA according to DKA protocol. DKA resolved. Patient counseled about the medication adherence. Patient was given a prescription for insulin 70/30 and Humalog. Patient is hemodynamically stable at the time of discharge. Patient said he'll go back to [facility]. Patient was alert and oriented, calm, cooperative, normal insight and judgment. Disposition: DC-01 TO HOME OR SELFCARE Time spent for discharge: 34 minutes - Discharge Diagnoses (1) DKA (diabetic ketoacidosis) Status: Acute Qualifiers: Diabetes mellitus type: type 1 Diabetes mellitus complication detail: without coma Qualified Code(s): E10.10 - Type 1 diabetes mellitus with ketoacidosis without coma (2) GERD (gastroesophageal reflux disease) Status: Acute Qualifiers: Esophagitis presence: with esophagitis Qualified Code(s): K21.0 - Gastro- esophageal reflux disease with esophagitis (3) Schizophrenia Status: Chronic Qualifiers: Schizophrenia type: unspecified Qualified Code(s): F20.9 - Schizophrenia, unspecified Core Measure Documentation - Palliative Care Palliative Care/ Comfort Measures: Not Applicable - Core Measures Any of the following diagnoses?: none Exam - Physical Exam Narrative exam: Not in cardiopulmonary distress. The patient appeared well nourished and normally developed. Vital signs as documented. Head exam is unremarkable. No scleral icterus . Neck is without jugular venous distension, thyromegaly, or carotid bruits. Lungs are clear to auscultation. Cardiac exam reveals regular rate and Rhythm. First and second heart sounds normal. No murmurs, rubs or gallops. Abdominal exam reveals normal bowel sounds, no masses, no organomegaly and no aortic enlargement. Extremities are nonedematous and both femoral and pedal pulses are normal. 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 - Constitutional Vitals: Temp Pulse Resp BP Pulse Ox 98.2 F 72 18 111/74 97 03/22/19 05:11 03/22/19 05:11 03/22/19 05:11 03/22/19 05:11 03/22/19 05:11 Plan Activity: no restrictions Weight Bearing Status: Full Weight Bearing Diet: diabetic Follow up with: ALLISON ALFORD MD [Primary Care Provider] - 3-5 Days Prescriptions: Lispro Insulin [HumaLOG] See Protocol SQ AC #1 vial Insulin NPH/Regular [NovoLIN 70/30] 10 unit SQ BIDDIAB #1 vial
[2019-03-22] MEDS ORDERED: POTASSIUM CHLORIDE ER 20 MEQ TAB PO SCH (14:00)
[2019-03-22] MEDS ORDERED: FAMOTIDINE 20 MG TAB PO SCH (22:00)
== END 2019-03-22 13:15 | disposition home or self-care (01) | DRG 638 ==
LOC: ED 14:57 → CC1 18:28 → 3A 03-21 16:13
PROVIDERS: ADMIT Internal Medicine; ATTEND Internal Medicine
DX: E10.10 Type 1 diabetes mellitus with ketoacidosis without coma (principal); E87.1 Hypo-osmolality and hyponatremia; E44.1 Mild protein-calorie malnutrition; Z79.4 Long term (current) use of insulin; E87.5 Hyperkalemia; K21.0 Gastro-esophageal reflux disease with esophagitis; F17.210 Nicotine dependence, cigarettes, uncomplicated; I10 Essential (primary) hypertension; F20.9 Schizophrenia, unspecified; Z71.6 Tobacco abuse counseling; Z82.49 Family history of ischemic heart disease and other diseases of the circulatory system; Z91.19 Patient's noncompliance with other medical treatment and regimen; Z68.22 Body mass index [BMI] 22.0-22.9, adult
CPT/HCPCS: 36415; 71045; 80048; 80053; 80307; 81001; 82140; 82310; 82962; 83036; 83735; 84100; 85025; 93005; 93010; 96374; 96375; 99406; G0378; J0692; J1644; J1815; J2765; J3480; J7030

== ENCOUNTER 2019-04-04 21:50 | Inpatient (IN) | payer MEDICARE ==
[2019-04-04] MEDS ORDERED: SODIUM CHLORIDE 0.9% 1000 ML 1,000 ML IV ONE ×2 (21:58→22:10)
--- NOTE | 2019-04-04 22:11 | Emergency Department Report ---
ED General Adult HPI - General Chief complaint: Altered Mental Status Stated complaint: ELEVATED BLOOD SUGA Time Seen by Provider: 04/04/19 21:56 Source: patient, EMS (ems notes not available at time of chart dictation), RN notes reviewed, old records reviewed Mode of arrival: Stretcher Limitations: Other (the patient is a poor historian) - History of Present Illness Initial comments: This is a 33-year-old gentleman. This patient is not known to this provider previously. He does not know who his primary care doctor is. His past medical history includes DKA, schizophrenia, and medication noncompliance. As per prior documentation, it appears that he goes to the [facility] for his primary care. The patient was brought to the hospital by emergency medical services. The patient thinks that his sugar is elevated. He may have passed out. He is not certain. He denies physical pain at this time. He endorses polyuria and poly dipsia. He indicates he ran of his medication a few days ago. He denies homicidality and suicidality. He denies overdose. -: This evening Consistency: constant Improves with: none Worsens with: none - Related Data Home Medications Medication Instructions Recorded Confirmed Last Taken Paliperidone Palmitate [Invega 156 mg IM QMONTH 03/20/19 03/20/19 02/23/19 Sustenna] Trazodone HCl 150 mg PO QHS 03/20/19 03/20/19 03/20/19 risperiDONE [Risperdal] 4 mg PO QHS 03/20/19 03/20/19 03/20/19 Previous Rx's Medication Instructions Recorded Last Taken Type Insulin NPH/Regular [NovoLIN 70/30] 10 unit SQ BIDDIAB #1 vial 03/22/19 Unknown Rx Lispro Insulin [HumaLOG] See Protocol SQ AC #1 vial 03/22/19 Unknown Rx Allergies Allergy/AdvReac Type Severity Reaction Status Date / Time No Known Allergies Allergy Unverified 03/29/14 14:49 ED Review of Systems ROS: Stated complaint: ELEVATED BLOOD SUGA Other details as noted in HPI Constitutional: malaise, weakness Eyes: denies: eye discharge ENT: denies: epistaxis Respiratory: denies: cough Cardiovascular: syncope (possible loss of consciousness, the patient is not certain). denies: chest pain Endocrine: increased hunger, increased thirst, increased urine Gastrointestinal: denies: abdominal pain Genitourinary: denies: dysuria Musculoskeletal: denies: back pain Skin: denies: lesions Neurological: denies: headache Psychiatric: denies: homicidal thoughts, suicidal thoughts ED Past Medical Hx - Past Medical History Hx Hypertension: Yes Hx Congestive Heart Failure: No Hx Diabetes: Yes (IDDM) Hx Sickle Cell Disease: No Hx Psychiatric Treatment: Yes (schizophrenia) Hx Asthma: No Hx COPD: No Hx HIV: No - Social History Smoking Status: Current Every Day Smoker - Medications Home Medications: Home Medications Medication Instructions Recorded Confirmed Last Taken Type Paliperidone Palmitate [Invega 156 mg IM QMONTH 03/20/19 03/20/19 02/23/19 History Sustenna] Trazodone HCl 150 mg PO QHS 03/20/19 03/20/19 03/20/19 History risperiDONE [Risperdal] 4 mg PO QHS 03/20/19 03/20/19 03/20/19 History Insulin NPH/Regular [NovoLIN 70/30] 10 unit SQ BIDDIAB #1 vial 03/22/19 Unknown Rx Lispro Insulin [HumaLOG] See Protocol SQ AC #1 vial 03/22/19 Unknown Rx ED Physical Exam - General Limitations: No Limitations General appearance: alert - Head Head exam: Present: atraumatic, normocephalic - Eye Eye exam: Present: normal appearance, EOMI. Absent: nystagmus - ENT ENT exam: Present: normal exam, mucous membranes dry, normal external ear exam - Neck Neck exam: Present: normal inspection, full ROM. Absent: tenderness, meningismus - Respiratory Respiratory exam: Present: normal lung sounds bilaterally. Absent: respiratory distress - Cardiovascular Cardiovascular Exam: Present: normal rhythm, tachycardia, normal heart sounds. Absent: systolic murmur, diastolic murmur, rubs, gallop - GI/Abdominal GI/Abdominal exam: Present: soft. Absent: distended, tenderness, guarding, rebound, rigid, pulsatile mass - Rectal Rectal exam: Present: deferred - Extremities Exam Extremities exam: Present: normal inspection, full ROM, other (2+ pulses noted in the bilateral upper, lower extremities. Compartments soft. No long bony tenderness. The pelvis is stable.). Absent: pedal edema, joint swelling, calf tenderness - Back Exam Back exam: Present: normal inspection, full ROM. Absent: tenderness, CVA tenderness (R), CVA tenderness (L), paraspinal tenderness, vertebral tenderness - Neurological Exam Neurological exam: Present: alert, other (Extraocular movements intact. Tongue midline. No facial droop. Facial sensation intact to light touch in the V1, V2, V3 distribution bilaterally. 5 and 5 strength in 4 extremities.. Sensation is intact to light touch in 4 extremities.) - Psychiatric Psychiatric exam: Present: flat affect. Absent: homicidal ideation, suicidal id eation - Skin Skin exam: Present: warm, dry, intact, normal color. Absent: rash ED Course Vital Signs 04/04/19 04/04/19 04/04/19 22:01 22:29 23:17 Temperature 98.6 F Pulse Rate 113 H 110 H 104 H Respiratory 20 20 14 Rate Blood Pressure 119/65 Blood Pressure 119/73 123/75 [Left] O2 Sat by Pulse 98 99 97 Oximetry - Reevaluation(s) Reevaluation #1: 04/04/19 22:50 Differential diagnosis, including not limited to: Diabetic ketoacidosis, hy perosmolar state, intracranial injury, dehydration, hyperglycemia Assessment and plan: 33-year-old gentleman with history of noncompliance, diabetic ketoacidosis, with probable recurrent hyperglycemic crisis versus diabetic ketoacidosis. He is tachycardic, but not hypoxic, he does not endorse any DVT or pulmonary embolus risk factors. Screening laboratory studies ordered, x-ray of the chest appears to be unremarkable, noncontrast CT scan of the brain is negative for acute disease. Plan to admit the patient once initial data points have resulted. His EKG today is abnormal, however, it appears to be unchanged from prior. Reevaluation #2: 04/04/19 23:46 As expected, laboratory studies consistent with diabetic ketoacidosis, hyperkalemia, and pseudohyponatremia. Additional IV fluids ordered, insulin push, insulin drip ordered. Case presented to Hospital physician, Dr. Watkins, who accepts the patient to the intensive care unit for metabolic crisis. ED Medical Decision Making - Lab Data Result diagrams: 04/04/19 22:30 04/04/19 22:30 Vital Signs 04/04/19 04/04/19 22:01 22:29 Temperature 98.6 F Pulse Rate 113 H 110 H Respiratory 20 20 Rate Blood Pressure 119/65 Blood Pressure 119/73 [Left] O2 Sat by Pulse 98 99 Oximetry Lab Results 04/04/19 Range/Units 22:03 POC Glucose > 500 H (70-105) - EKG Data -: EKG Interpreted by Me EKG shows normal: sinus rhythm Rate: tachycardia - EKG Data When compared to previous EKG there are: no significant change 04/04/19 22:51 EKG shows a sinus tachycardia, 106 bpm, borderline left axis deviation, borderline left anterior fascicular block, atrial enlargement, symmetric. T waves, poor quality progression, QTC is prolonged, this EKG is abnormal, the EKG is not consistent with ST elevation myocardial infarction, and the EKG appears to be grossly unchanged from prior EKG from February 2019. - Radiology Data Radiology results: report reviewed, image reviewed Noncontrast CT scan of the brain interpreted as negative for acute disease. X-ray of the chest, interpreted by me, unremarkable. Critical Care Time: Yes Critical care time in (mins) excluding proc time.: 35 Critical care attestation.: If time is entered above; I have spent that time in minutes in the direct care of this critically ill patient, excluding procedure time. ED Disposition Clinical Impression: DKA (diabetic ketoacidosis), Schizophrenia, Non-compliance, Hyperkalemia Disposition: DC-09 OP ADMIT IP TO THIS HOSP Is pt being admited?: Yes Condition: Critical Instructions: Diabetes Mellitus Type 2 in Adults (ED)
--- NOTE | 2019-04-04 22:29 | Event Note ---
ED Screening Note Date of service: 04/04/19 Time: 21:56 ED Screening Note: 33 y/o male was found down in the male bathroom. Patient states that he blood sugars have been elevated. Hx/DM This initial assessment/diagnostic orders/clinical plan/treatment(s) is/are subject to change based on patients health status, clinical progression and re- assessment by fellow clinical providers in the ED. Further treatment and workup at subsequent clinical providers discretion. Patient/guardian urged not to elope from the ED as their condition may be serious if not clinically assessed and managed. Initial orders include:
--- NOTE | 2019-04-04 22:45 | Cat Scan Report ---
CT head without contrast INDICATION : Headache. Altered mental status. TECHNIQUE: Axial imaging performed from the skull apex through the skull base without the use of con trast. All CT examinations performed at this facility utilize dose modulation, iterative reconstruct ion or weight-based dosing, when appropriate, to reduce radiation dose to as low as reasonably achiev able. COMPARISON: None FINDINGS: No acute intracranial hemorrhage or parenchymal abnormality. Ventricles are normal in si ze and appear symmetric. Soft tissues including the orbits appear normal. No acute osseous abnorm ality. Sinuses and mastoid air cells are clear. IMPRESSION: No acute intracranial abnormality. Signer Name: Blake Concepcion MD Signed: 04/04/2019 10:41 PM Workstation Name: [id number]
[2019-04-04 22:58] LABS: Basophils % (Auto) 0.6 % (0.0-1.8); Lymphocytes # (Auto) 0.7 K/mm3 (1.2-5.4); Lymphocytes % (Auto) 11.3 % (13.4-35.0); Mean Corpuscular HGB Conc 29 % (32-34); Mean Corpuscular Volume 101 fl (84-94); Monocytes # (Auto) 0.4 K/mm3 (0.0-0.8); Monocytes % (Auto) 5.6 % (0.0-7.3); Platelet Count 243 K/mm3 (140-440); Red Blood Count 4.29 M/mm3 (3.65-5.03); Red Cell Distribution Width 15.7 % (13.2-15.2)
[2019-04-04 23:03] LABS: Bilirubin,Urine NEG (Negative); Blood,Urine NEG (Negative); Color,Urine Colorless (Yellow); Protein,Urine <15 mg/dL mg/dL (Negative); Urobilinogen,Urine < 2.0 mg/dL (<2.0); WBC,Urine < 1.0 /HPF (0.0-6.0)
--- NOTE | 2019-04-04 23:15 | XRay Report ---
CHEST 1 VIEW INDICATION / CLINICAL INFORMATION: syncope tachycardia. COMPARISON: 03/20/2018 FINDINGS: SUPPORT DEVICES: None. HEART / MEDIASTINUM: No significant abnormality. LUNGS / PLEURA: No significant pulmonary or pleural abnormality. No pneumothorax. ADDITIONAL FINDINGS: No significant additional findings. IMPRESSION: 1. No significant change Signer Name: Nick Cordero MD Signed: 04/04/2019 11:11 PM Workstation Name: [id number]
[2019-04-04 23:20] LABS: INR 0.93 (0.87-1.13)
[2019-04-04 23:22] LABS: BUN/Creatinine Ratio 26; Blood Urea Nitrogen 29 mg/dL (9-20); Hemolysis Index 125
[2019-04-04 23:27] LABS: Hematocrit 43.5 % (35.5-45.6); Hemoglobin 12.8 gm/dl (11.8-15.2)
[2019-04-04 23:40] LABS: Alanine Aminotransferase 33 units/L (7-56)
[2019-04-04] MEDS ORDERED: INSULIN REGULAR, HUMAN 100 UNITS/1 ML IV ONE (23:45)
[2019-04-04] MEDS ORDERED: D5W/0.45% NACL/KCL 20 MEQ 20 MEQ/1,000 ML BAG IV SCH (23:45)
[2019-04-04] MEDS ORDERED: INSULIN REGULAR, HUMAN 100 UNITS in SODIUM CHLORIDE 0.9% 99 ML IV SCH (23:45)
[2019-04-04] MEDS ORDERED: SODIUM CHLORIDE 0.9% 1000 ML 2,000 ML IV ONE (23:45)
[2019-04-04] MEDS ORDERED: DEXTROSE 50% IN WATER (25GM) 50 ML SYRINGE IV PRN (23:45)
[2019-04-05] MEDS ORDERED: ACETAMINOPHEN 325 MG TAB PO PRN (00:19)
[2019-04-05] MEDS ORDERED: ONDANSETRON 4 MG/2 ML INJ IV PRN (00:19)
[2019-04-05 00:25] LABS: BUN/Creatinine Ratio 25; Blood Urea Nitrogen 25 mg/dL (9-20); Calcium 8.3 mg/dL (8.4-10.2); Hemolysis Index 13
--- NOTE | 2019-04-05 00:29 | History and Physical Report ---
History of Present Illness Date of examination: 04/03/19 Date of admission: 04/04/19 23:48 Chief complaint: Hyperglycemia, questionable syncopal episode History of present illness: 33-year-old -Argent[place] male with history of insulin-dependent diabetes, schizophrenia, tobacco abuse, and marijuana abuse who presents to [facility] ED via EMS after passing out due to elevated blood sugars. The pt is drowsy but arousable. He is unsure whether or not he actually passed out. When asked how he arrived to our facility, he states that he walked from [place] to the ED. Patient states that he normally takes NPH 70/30 but has not taken it in the past few days because he lost his medication. Advised patient that NPH 70/30 is available at [facility] without a prescription, if he ever misplaces medicine, he can go there to purchase. Admits: Noncompliance with medication, polyuria, polydipsia, n/v Denies: SI, HI, fever, headache, or head trauma Past History Past Medical History: diabetes (insulin-dependent), other (schizophrenia) Past Surgical History: No surgical history Social history: smoking, other (marijuana abuse) Family history: no significant family history Medications and Allergies Allergies Allergy/AdvReac Type Severity Reaction Status Date / Time No Known Allergies Allergy Unverified 03/29/14 14:49 Home Medications Medication Instructions Recorded Confirmed Last Taken Type Paliperidone Palmitate [Invega 156 mg IM QMONTH 03/20/19 03/20/19 02/23/19 History Sustenna] Trazodone HCl 150 mg PO QHS 03/20/19 03/20/19 03/20/19 History risperiDONE [Risperdal] 4 mg PO QHS 03/20/19 03/20/19 03/20/19 History Insulin NPH/Regular [NovoLIN 70/30] 10 unit SQ BIDDIAB #1 vial 03/22/19 Unknown Rx Lispro Insulin [HumaLOG] See Protocol SQ AC #1 vial 03/22/19 Unknown Rx Active Meds: Active Medications Acetaminophen (Tylenol) 650 mg PO Q4H PRN PRN Reason: Pain MILD(1-3)/Fever >100.5/SNOW Dextrose (D50w (25gm) Syringe) 0 ml IV PRN PRN PRN Reason: Hypoglycemia Insulin Human Regular 100 (units/ Sodium Chloride) 100 mls @ 1 mls/hr IV TITR EMILIANO; Protocol Sodium Chloride (Nacl 0.9% 1000 Ml) 1,000 mls @ 150 mls/hr IV DIRECT EMILIANO Miscellaneous Medication (Risperidone [Risperdal]) 4 mg PO QHS EMILIANO Miscellaneous Medication (Trazodone Hcl [Trazodone Hcl]) 150 mg PO QHS EMILIANO Ondansetron HCl (Zofran) 4 mg IV Q8H PRN PRN Reason: Nausea And Vomiting Sodium Chloride (Sodium Chloride Flush Syringe 10 Ml) 10 ml IV PRN PRN PRN Reason: LINE FLUSH Review of Systems All systems: negative Constitutional: weakness Gastrointestinal: nausea, vomiting Neurological: syncope (questionable) Endocrine: polyuria, high blood sugars Exam - Physical Exam Narrative exam: Physical exam General appearance: Present: No acute distress, drowsy but arousable, adult -Argentine male - EENT Eyes: Present: PERRL, EOM intact, ENT: hearing intact, normal dentition - Neck Neck: Present: supple, normal ROM - Respiratory Respiratory effort: Non-labored Respiratory: CTA - Cardiovascular Heart rate: 113 (bpm) Rhythm: ST Heart Sounds: Present: S1, S2 - Extremities Extremities: no ischemia, pulses intact, - Peripheral Assessment Peripheral Pulses: within normal limits - Abdominal General gastrointestinal: soft, non-tender, normal bowel sounds - Integumentary Integumentary: Present: warm, dry, - Musculoskeletal Musculoskeletal: Able to move all extremities, generalized weakness -Neurological Neurological: CN II-XII grossly intact - Psychiatric Psychiatric: cooperative - Constitutional Vitals: Temp Pulse Resp BP Pulse Ox 98.6 F 113 H 13 119/70 100 04/04/19 22:01 04/05/19 00:09 04/05/19 00:09 04/05/19 00:09 04/05/19 00:09 Results - Labs CBC & Chem 7: 04/04/19 22:30 04/05/19 00:00 Labs: Laboratory Last Values WBC 6.4 K/mm3 (4.5-11.0) 04/04/19 22:30 RBC 4.29 M/mm3 (3.65-5.03) 04/04/19 22:30 Hgb 12.8 gm/dl (11.8-15.2) 04/04/19 22:30 Hct 43.5 % (35.5-45.6) 04/04/19 22: MCV 101 fl (84-94) H 04/04/19 22:30 MCH 30 pg (28-32) 04/04/19:30 MCHC 29 % (32-34) L 04/04/19: RDW 15.7 % (13.2-15.2) H 04/04/19:30 Plt Count 243 K/mm3 (140-440) 04/04/19 22:30 Lymph % (Auto) 11.3 % (13.4-35.0) L 04/04/19 22:30 [place] % (Auto) 5.6 % (0.0-7.3) 04/04/19: Eos % (Auto) 0.0 % (0.0-4.3) 04/04/19: Baso % (Auto) 0.6 % (0.0-1.8) 04/04/19: Lymph # 0.7 K/mm3 (1.2-5.4) L 04/04/19 22:30 [place] # 0.4 K/mm3 (0.0-0.8) 04/04/19 22: Eos # 0.0 K/mm3 (0.0-0.4) 04/04/19: Baso # 0.0 K/mm3 (0.0-0.1) 04/04/19 22:30 Seg Neutrophils % 82.5 % (40.0-70.0) H 04/04/19:30 Seg Neutrophils # 5.3 K/mm3 (1.8-7.7) 04/04/19 22:30 PT 12.2 Sec. (12.2-14.9) 04/04/19 22: INR 0.93 (0.87-1.13) 04/04/19 22:30 VBG pH 7.261 (7.320-7.420) L 04/04/19 22:30 Sodium 137 mmol/L (137-145) D 04/05/19 00:00 Potassium 5.5 mmol/L (3.6-5.0) H D 04/05/19 00:00 Chloride 96.4 mmol/L (98-107) L 04/05/19 00:00 Carbon Dioxide 13 mmol/L (22-30) L 04/05/19 00:00 Anion Gap 33 mmol/L 04/05/19 00:00 BUN 25 mg/dL (9-20) H 04/05/19 00:00 Creatinine 1.0 mg/dL (0.8-1.5) 04/05/19 00:00 Estimated GFR > 60 ml/min 04/05/19 00:00 BUN/Creatinine Ratio 25 % 04/05/19 00:00 Glucose 1291 mg/dL (75-100) H* 04/04/19 22:30 POC Glucose > 500 (70-105) H 04/04/19 22:03 Calcium 8.3 mg/dL (8.4-10.2) L 04/05/19 00:00 Phosphorus 5.70 mg/dL (2.5-4.5) H 04/05/19 00:00 Magnesium 2.30 mg/dL (1.7-2.3) 04/05/19 00:00 Total Bilirubin 0.80 mg/dL (0.1-1.2) 04/04/19 22:30 AST 28 units/L (5-40) 04/04/19 22:30 ALT 33 units/L (7-56) 04/04/19 22:30 Alkaline Phosphatase 118 units/L (35-129) 04/04/19 22:30 Total Creatine Kinase 540 units/L (55-170) H 04/04/19 22:30 Total Protein 6.3 g/dL (6.3-8.2) 04/04/19 22:30 Albumin 4.0 g/dL (3.9-5) 04/04/19 22:30 Albumin/Globulin Ratio 1.7 % 04/04/19 22:30 Lipase 14 units/L (13-60) 04/04/19 22:30 Urine Color Colorless (Yellow) 04/04/19 22:10 Urine Turbidity Clear (Clear) 04/04/19 22:10 Urine pH 6.0 (5.0-7.0) 04/04/19 22:10 Ur Specific [place] 1.023 (1.003-1.030) 04/04/19 22:10 Urine Protein <15 mg/dl mg/dL (Negative) 04/04/19 22:10 Urine Glucose (UA) >=500 mg/dL (Negative) 04/04/19 22:10 Urine Ketones 20 mg/dL (Negative) 04/04/19 22:10 Urine Blood Neg (Negative) 04/04/19 22:10 Urine Nitrite Neg (Negative) 04/04/19 22:10 Urine Bilirubin Neg (Negative) 04/04/19 22:10 Urine Urobilinogen < 2.0 mg/dL (<2.0) 04/04/19 22:10 Ur Leukocyte Esterase Neg (Negative) 04/04/19 22:10 Urine WBC (Auto) < 1.0 /HPF (0.0-6.0) 04/04/19 22:10 Urine RBC (Auto) 1.0 /HPF (0.0-6.0) 04/04/19 22:10 Salicylates < 0.3 mg/dL (2.8-20.0) L 04/04/19 22:30 Acetaminophen < 5.0 ug/mL (10.0-30.0) L 04/04/19 22:30 Plasma/Serum Alcohol < 0.01 % (0-0.07) 04/04/19 22:30 - Imaging and Cardiology Imaging and Cardiology: CT Head: FINDINGS: No acute intracranial hemorrhage or parenchymal abnormality. Ventricles are normal in size and appear symmetric. Soft tissues including the orbits appear normal. No acute osseous abnormality. Sinuses and mastoid air cells are clear. IMPRESSION: No acute intracranial abnormality. CXR: FINDINGS: SUPPORT DEVICES: None. HEART / MEDIASTINUM: No significant abnormality. LUNGS / PLEURA: No significant pulmonary or pleural abnormality. No pneumothorax. ADDITIONAL FINDINGS: No significant additional findings. IMPRESSION: 1. No significant change Assessment and Plan Assessment and plan: 33-year-old -Argent[place] male with history of insulin-dependent diabetes, schizophrenia, tobacco abuse, and marijuana abuse who presents to [facility] ED via EMS after passing out due to elevated blood sugars. Upon arrival to our facility he was found to have BG 1291, and urine was positive for ketones. CT Head negative. CXR unremarkable. Will admit to ICU. DKA -Blood glucose 1291 and admission, urine positive for ketones, VBG 7.261 -Initiate DKA protocol -Continue supportive care -POC BG monitoring per DKA protocol -Hydrate with IVF -On insulin gtt -Montior labs Hyperkalemia -7.0 on admission, now 5.5 -Receiving IVF -Continue to monitor electrolytes Schizophrenia -Continue risperidone Tobacco abuse -Current every day smoker -Counseled for cessation -Nicotine patch when necessary Marijuana abuse -Self reports intermittent marijuana use -Consult cessation DVT PPX -On Lovenox Advance Directives: No VTE prophylaxis?: Chemical Plan of care discussed with patient/family: Yes
[2019-04-05] MEDS ORDERED: SODIUM CHLORIDE 0.9% 1000 ML 1,000 ML IV SCH (01:00)
[2019-04-05] MEDS ORDERED: SODIUM CHLORIDE 0.9% 1000 ML 3,000 ML IV ONE (01:29)
[2019-04-05 02:25] LABS: BUN/Creatinine Ratio 23; Blood Urea Nitrogen 23 mg/dL (9-20); Calcium 8.6 mg/dL (8.4-10.2); Hemolysis Index 2
[2019-04-05 03:52] LABS: BUN/Creatinine Ratio 22; Blood Urea Nitrogen 20 mg/dL (9-20); Calcium 8.6 mg/dL (8.4-10.2); Hemolysis Index 5
[2019-04-05] MEDS ORDERED: D5W/0.45% NACL/KCL 20 MEQ 20 MEQ/1,000 ML BAG IV SCH (05:00)
[2019-04-05 05:51] LABS: BUN/Creatinine Ratio 45; Blood Urea Nitrogen 9 mg/dL (9-20); Hemolysis Index 13
[2019-04-05] MEDS ORDERED: SODIUM CHLORIDE 0.45% 1000 ML 1,000 ML IV SCH (06:00)
[2019-04-05 06:02] LABS: Calcium 3.3 mg/dL (8.4-10.2)
[2019-04-05] MEDS ORDERED: POTASSIUM PHOSPHATE 40 MMOL in SODIUM CHLORIDE 0.9% 500 ML 500 ML IV ONE (06:55)
[2019-04-05] MEDS ORDERED: DEXTROSE 5% IN WATER 1,000 ML IV SCH (07:00)
[2019-04-05] MEDS: INSULIN LISPRO 100 UNIT/ML SUB-Q SCH ×3 (08:08→17:47)
[2019-04-05] MEDS ORDERED: POTASSIUM CHLORIDE ER 20 MEQ TAB PO SCH (09:00)
[2019-04-05] MEDS: POTASSIUM CHLORIDE 10 MEQ 10 MEQ/100 ML BAG IV SCH ×2 (09:15→10:25)
[2019-04-05] MEDS: INSULIN NPH/REGULAR 70/30 INJ SUB-Q SCH ×2 (09:15→17:46)
[2019-04-05 10:24] LABS: BUN/Creatinine Ratio 17; Blood Urea Nitrogen 12 mg/dL (9-20); Calcium 8.3 mg/dL (8.4-10.2); Hemolysis Index 34
--- NOTE | 2019-04-05 13:45 | Progress Note ---
Assessment and Plan Assessment and plan: 33-year-old -Sudanese male with history of insulin-dependent diabetes, schizophrenia, tobacco abuse, and marijuana abuse who presents to [facility] ED via EMS after passing out due to elevated blood sugars. Upon arrival to our facility he was found to have BG 1291, and urine was positive for ketones. CT Head negative. CXR unremarkable. Will admit to ICU. DKA -Blood glucose 1291 and admission, urine positive for ketones, VBG 7.261 -Patient was treated according to DKA protocol -DKA resolved, unknown gap closed -Patient started on long-acting insulin sliding scale insulin Hyperkalemia - Resolved with insulin and fluids Schizophrenia -Continue risperidone Tobacco abuse -Current every day smoker -Counseled for cessation -Nicotine patch when necessary Marijuana abuse -Self reports intermittent marijuana use -Consult cessation DVT PPX -On Lovenox Disposition; transfer to the floor History Interval history: Patient was seen and evaluated this morning the bedside, patient was alert and oriented, didn't have any complaints. Hospitalist Physical - Physical exam Narrative exam: Not in cardiopulmonary distress. The patient appeared well nourished and normally developed. Vital signs as documented. Head exam is unremarkable. No scleral icterus . Neck is without jugular venous distension, thyromegaly, or carotid bruits. Lungs are clear to auscultation. Cardiac exam reveals regular rate and Rhythm. First and second heart sounds normal. No murmurs, rubs or gallops. Abdominal exam reveals normal bowel sounds, no masses, no organomegaly and no aortic enlargement. Extremities are nonedematous and both femoral and pedal pulses are normal. 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 No focal weakness. - Constitutional Vitals: Temp Pulse Resp BP Pulse Ox 98.8 F 90 19 112/66 99 04/05/19 03:52 04/05/19 13:30 04/05/19 13:30 04/05/19 13:30 04/05/19 13:30 Results - Labs CBC & Chem 7: 04/04/19 22:30 04/05/19 09:17 Labs: Laboratory Last Values WBC 6.4 K/mm3 (4.5-11.0) 04/04/19 22:30 RBC 4.29 M/mm3 (3.65-5.03) 04/04/19 22:30 Hgb 12.8 gm/dl (11.8-15.2) 04/04/19 22:30 Hct 43.5 % (35.5-45.6) 04/04/19 22: MCV 101 fl (84-94) H 04/04/19 22:30 MCH 30 pg (28-32) 04/04/19: MCHC 29 % (32-34) L 04/04/19:30 RDW 15.7 % (13.2-15.2) H 04/04/19:30 Plt Count 243 K/mm3 (140-440) 04/04/19 22:30 Lymph % (Auto) 11.3 % (13.4-35.0) L 04/04/19: [place] % (Auto) 5.6 % (0.0-7.3) 04/04/19 22: Eos % (Auto) 0.0 % (0.0-4.3) 04/04/19: Baso % (Auto) 0.6 % (0.0-1.8) 04/04/19: Lymph # 0.7 K/mm3 (1.2-5.4) L 04/04/19 22:30 [place] # 0.4 K/mm3 (0.0-0.8) 04/04/19 22: Eos # 0.0 K/mm3 (0.0-0.4) 04/04/19 22:30 Baso # 0.0 K/mm3 (0.0-0.1) 04/04/19 22:30 Seg Neutrophils % 82.5 % (40.0-70.0) H 04/04/19:30 Seg Neutrophils # 5.3 K/mm3 (1.8-7.7) 04/04/19 22:30 PT 12.2 Sec. (12.2-14.9) 04/04/19:30 INR 0.93 (0.87-1.13) 04/04/19 22:30 VBG pH 7.261 (7.320-7.420) L 04/04/19 22:30 Sodium 143 mmol/L (137-145) D 04/05/19 09:17 Potassium 4.8 mmol/L (3.6-5.0) D 04/05/19 09:17 Chloride 107.4 mmol/L (98-107) H 04/05/19 09:17 Carbon Dioxide 20 mmol/L (22-30) L D 04/05/19 09:17 Anion Gap 20 mmol/L 04/05/19 09:17 BUN 12 mg/dL (9-20) 04/05/19 09:17 Creatinine 0.7 mg/dL (0.8-1.5) L D 04/05/19 09:17 Estimated GFR > 60 ml/min 04/05/19 09:17 BUN/Creatinine Ratio 17 % 04/05/19 09:17 Glucose 277 mg/dL (75-100) H 04/05/19 09:17 POC Glucose 252 (70-105) H 04/05/19 08:08 Hemoglobin A1c 11.6 % (4-6) H 04/05/19 22:30 Calcium 8.3 mg/dL (8.4-10.2) L D 04/05/19 09:17 Phosphorus 3.30 mg/dL (2.5-4.5) D 04/05/19 09:17 Magnesium 2.00 mg/dL (1.7-2.3) 04/05/19 09:17 Total Bilirubin 0.80 mg/dL (0.1-1.2) 04/04/19 22:30 AST 28 units/L (5-40) 04/04/19 22:30 ALT 33 units/L (7-56) 04/04/19 22:30 Alkaline Phosphatase 118 units/L (35-129) 04/04/19 22:30 Total Creatine Kinase 540 units/L (55-170) H 04/04/19 22:30 Total Protein 6.3 g/dL (6.3-8.2) 04/04/19 22:30 Albumin 4.0 g/dL (3.9-5) 04/04/19 22:30 Albumin/Globulin Ratio 1.7 % 04/04/19 22:30 Lipase 14 units/L (13-60) 04/04/19 22:30 Urine Color Colorless (Yellow) 04/04/19 22:10 Urine Turbidity Clear (Clear) 04/04/19 22:10 Urine pH 6.0 (5.0-7.0) 04/04/19 22:10 Ur Specific [place] 1.023 (1.003-1.030) 04/04/19 22:10 Urine Protein <15 mg/dl mg/dL (Negative) 04/04/19 22:10 Urine Glucose (UA) >=500 mg/dL (Negative) 04/04/19 22:10 Urine Ketones 20 mg/dL (Negative) 04/04/19 22:10 Urine Blood Neg (Negative) 04/04/19 22:10 Urine Nitrite Neg (Negative) 04/04/19 22:10 Urine Bilirubin Neg (Negative) 04/04/19 22:10 Urine Urobilinogen < 2.0 mg/dL (<2.0) 04/04/19 22:10 Ur Leukocyte Esterase Neg (Negative) 04/04/19 22:10 Urine WBC (Auto) < 1.0 /HPF (0.0-6.0) 04/04/19 22:10 Urine RBC (Auto) 1.0 /HPF (0.0-6.0) 04/04/19 22:10 Salicylates < 0.3 mg/dL (2.8-20.0) L 04/04/19 22:30 Acetaminophen < 5.0 ug/mL (10.0-30.0) L 04/04/19 22:30 Plasma/Serum Alcohol < 0.01 % (0-0.07) 04/04/19 22:30 Active Medications - Current Medications Current Medications: Generic Name Dose Route Start Last Admin Trade Name Freq PRN Reason Stop Dose Admin Acetaminophen 650 mg 04/05/19 00:19 Tylenol PO Q4H PRN Pain MILD(1-3)/Fever >100.5/SNOW Dextrose 0 ml 04/04/19 23:45 04/05/19 06:55 D50w (25gm) Syringe IV 50 ml PRN PRN Administration Hypoglycemia Enoxaparin Sodium 40 mg 04/05/19 22:00 Lovenox SUB-Q QDAY@2200 EMILIANO Insulin Human Isoph/Insulin Regular 10 unit 04/05/19 08:00 04/05/19 09:15 Humulin 70/30 SUB-Q 10 unit BIDDIAB EMILIANO Administration Insulin Human Lispro 0 unit 04/05/19 07:30 04/05/19 12:00 Humalog SUB-Q 3 unit AC EMILIANO Administration Protocol Insulin Human Lispro 0 unit 04/05/19 22:00 Humalog SUB-Q QHS [facility] Protocol Ondansetron HCl 4 mg 04/05/19 00:19 Zofran IV Q8H PRN Nausea And Vomiting Risperidone 3 mg 04/05/19 22:00 Risperdal PO QHS [facility] Risperidone 1 mg 04/05/19 22:00 Risperdal PO QHS [facility] Sodium Chloride 10 ml 04/04/19 23:45 Sodium Chloride Flush Syringe 10 Ml IV PRN PRN LINE FLUSH Trazodone HCl 150 mg 04/05/19 22:00 [facility]rel [facility] Nutrition/Malnutrition Assess - Dietary Evaluation Nutrition/Malnutrition Findings: Nutrition Notes Start: 04/05/19 10:05 Freq: Status: Active Protocol: Document 04/05/19 10:05 RODOLFO (Rec: 04/05/19 10:32 RODOLFO [email or web address]) Co-Sign 04/05/19 10:05 LM Nutrition Notes Need for Assessment generated from: MD Order,Education Initial or Follow up Assessment Current Diagnosis Diabetes Other Pertinent Diagnosis DKA, schizophrenia, acute metabolic encephalopathy Current Diet Consistent carb diet Labs/Tests Na 151 K 1.6 Cr 0.2 A1c 11.6 Pertinent Medications Reviewed Height 5 ft 4 in Weight 68 kg Usual Body Weight 68.1 kg [place] Body Weight (kg) 59.09 BMI 25.7 Intake Prior to Admission Poor Weight Status Overweight Subjective/Other Information RD consult for diet education. Pt stated that he didn't have much of an appetite at home. Ate around 2 meals per day. Pt reported feeling like he's lost wt, but UBW is the same to ABW. Pt ate about 25% of breakfast. Burn Absent Trauma Absent Minimum of two criteria No physical signs of malnutrition #1 Nutrition Diagnosis Inadequate oral intake Etiology DKA As Evidenced by Signs and Symptoms Pt eating 25% of breakfast, Hgb A1c 11.6 Is patient on ventilator? No Is Patient Ambulatory and/or Out of Bed Yes REE-([facility]-ambulatory/OOB) [ 1989.300 [id number]] Calculation Used for Recommendations [facility] Additional Notes Protein needs: 54g-68g/kg (0. 8g-1g/kg) Fluid needs: 1ml/kcal Nutrition Intervention Change Diet Order: Continue current Teaching Recipient Patient Learning Readiness Good Teaching Methods Discussion,Handout Response to Teaching Verbalize understanding Education Handouts Provided Consistent carb, and food label Barriers to Learning No Barriers RD phone number provided Yes Patient aware of follow up options Yes Goal #1 Meet at least 75% of energy and protein needs Anticipated Discharge Needs: Consistent carb diet Follow-Up By: 04/08/19 Additional Comments F/U for PO intakes
[2019-04-05 16:20] LABS: BUN/Creatinine Ratio 13; Blood Urea Nitrogen 10 mg/dL (9-20); Calcium 8.3 mg/dL (8.4-10.2); Hemolysis Index 2
[2019-04-05 17:40] VITALS: BP 151/98
[2019-04-05] MEDS ORDERED: risperiDONE 1 MG TAB PO SCH (22:00)
[2019-04-05] MEDS ORDERED: TRAZODONE HCL 150 MG PO SCH (22:00)
[2019-04-05] MEDS ORDERED: risperiDONE 3 MG TAB PO SCH (22:00)
[2019-04-05] MEDS ORDERED: RISPERIDONE 4 MG PO SCH (22:00)
[2019-04-05] MEDS ORDERED: ENOXAPARIN 40 MG/0.4 ML INJ SUB-Q SCH (22:00)
[2019-04-05] MEDS ORDERED: INSULIN LISPRO 100 UNIT/ML SUB-Q SCH (22:00)
[2019-04-05] MEDS ORDERED: traZODone 50 MG TAB PO SCH (22:00)
--- NOTE | 2019-04-06 09:37 | Discharge Summary ---
Providers - Providers Date of Admission: 04/04/19 23:48 Date of discharge: 04/05/19 Attending physician: SATHYA ROBIN MD 04/05/19 00:16 Consult to Dietitian/Nutrition [CONS] Routine Physician Instructions: Reason For Exam: DKA Reason for Consult: Nutrition Recommendations Reason for Consult: Diet education 04/05/19 00:19 Consult to Mental Health [CONS] Routine Reason For Exam: behavioral disturbance Place consult to:: [facility] Notified:: Weston Phone number called:: [phone] Was contact made?: Yes If yes, spoke with:: weston Time called:: 09:53 Comment:: Will notified Grey 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 Patient said he was not taking his insulin for the last few days. Patient was monitored according to DKA protocol and transferred to the floor for further care. I have extensively counseled about medication adherence and patient verbalized he understood. Patient was started on 70/30 insulin sliding insulin and his blood sugar was good. She is feeling well. Patient was alert and oriented with no signs of psychosis. Patient wants to go home despite explaining that if benefits of staying in the hospital and finishing the treatment. Patient sign AMA. Patient has been admitted previously many times and was doing the same thing. Disposition: DC-07 LEFT AGAINST MED ADVICE Time spent for discharge: 32 minutes - Discharge Diagnoses (1) DKA (diabetic ketoacidosis) Status: Acute Qualifiers: (2) Metabolic acidosis Status: Acute (3) Schizophrenia Status: Acute Qualifiers: Schizophrenia type: unspecified Qualified Code(s): F20.9 - Schizophrenia, unspecified (4) HTN (hypertension) Status: Chronic Qualifiers: Hypertension type: essential hypertension Qualified Code(s): I10 - Essential (primary) hypertension (5) Non-compliance Status: Chronic Core Measure Documentation - Palliative Care Palliative Care/ Comfort Measures: Not Applicable - Core Measures Any of the following diagnoses?: none Exam - Physical Exam Narrative exam: Didn't get a chance to examine the patient. - Constitutional Vitals: Temp Pulse Resp BP Pulse Ox 98.3 F 99 H 20 151/98 100 04/05/19 16:55 04/05/19 16:56 04/05/19 16:55 04/05/19 16:55 04/05/19 16:56 Plan Activity: other (Left AMA) Weight Bearing Status: Full Weight Bearing Diet: diabetic, other (Left AMA) Follow up with: PRIMARY CARE, [Primary Care Provider] - 3-5 Days
== END 2019-04-05 17:45 | disposition left against medical advice (07) | DRG 637 ==
LOC: ED 21:50 → CC1 23:48 → 3A 04-05 14:53
PROVIDERS: ADMIT Internal Medicine; ATTEND Internal Medicine
DX: E10.10 Type 1 diabetes mellitus with ketoacidosis without coma (principal); G93.41 Metabolic encephalopathy; E87.0 Hyperosmolality and hypernatremia; Z91.19 Patient's noncompliance with other medical treatment and regimen; E87.5 Hyperkalemia; F20.9 Schizophrenia, unspecified; I10 Essential (primary) hypertension; F12.10 Cannabis abuse, uncomplicated; F17.200 Nicotine dependence, unspecified, uncomplicated; Z71.6 Tobacco abuse counseling; Z71.51 Drug abuse counseling and surveillance of drug abuser; Z79.899 Other long term (current) drug therapy; Z79.4 Long term (current) use of insulin
CPT/HCPCS: 36415; 70450; 71045; 80048; 80053; 80320; 81001; 82550; 82805; 82962; 83036; 83690; 83735; 84100; 85025; 85610; 87086; 93005; 93010; 99406; G0378; G0480; J1815; J3480; J7030; J7040; J7070